=== PATIENT | female | born 1935 | race Caucasian/White ===

== ENCOUNTER 2019-11-17 13:26 | Outpatient (CLI) | payer MEDICARE, OTHER, SELFPAY ==
--- NOTE | 2019-11-17 13:36 | USCV_ITS ---
Bhargavi Flower Age: 84 Gender: F : 1935 Exam Date: 11/17/2019 14:05 Ordering Phys: Isai Arthur MD ([email or web address]) Technologist: Lea Valles Exam Location: [facility] [place] Indication: SWELLING HISTORY: Lower extremity swelling. PROCEDURES: Venous duplex imaging was performed in only the left lower extremity. The following venous structures were evaluated: common femoral vein, profunda vein, proximal portion of the greater saphenous vein, superficial femoral vein, and the popliteal vein. In addition, the posterior tibial and peroneal trunk were evaluated. Serial compression, augmentation maneuvers, and spectral Doppler flow evaluation were performed. FINDINGS: Normal 2-D Doppler and augmentation and compressibility throughout the lower extremity venous structures. Additional imaging through the proximal calf veins also reveals no thrombus. Limited evaluation of the greater saphenous vein is patent with no thrombus.. CONCLUSIONS No evidence of DVT in the above-mentioned identifiable veins. Dr Isai Arthur MD [facility] (Electronically Signed) Final Date: 19 November 2019 06:09 S
--- NOTE | 2019-11-17 14:15 | USCV_ITS ---
Bhargavi Flower Age: 84 Gender: F : 1935 Exam Date: 11/17/2019 13:53 Ordering Phys: Isai Arthur MD ([email or web address]) Technologist: Lea Valles Exam Location: [facility] [place] Indication: STENOSIS Risk Factors: Previous Vascular Surgery: Right Brachial BP: / Left Brachial BP: / Right Left Velocity (cm/s) Spectral Plaque Velocity (cm/s) Spectral Plaque Syst/Diast Broadening Syst/Diast Broadening 71.70/ 14.30 Prox CCA 64.70 / 6.30 77.20/ 12.10 Mid CCA 48.60 / 8.50 69.50/ 8.80 Distal CCA 54.60 / 8.50 62.20/ 8.40 Prox ICA 74.90 / 11.80 81.50/ 14.30 Mid ICA 70.50 / 11.10 77.70/ 14.30 Distal ICA 77.90 / 12.80 105.00 ECA 76.90 1.06 ICA/CCA 1.60 Antegrade Vertebral Antegrade 31.00/ 5.50 cm/s 41.10/ 7.20 cm/s Tri Subclavian Tri 85.40 108.4 0 FINDINGS TORTUOUS LEFT ICA Mild to moderate plaques at the bifurcations and proximal carotid arteries bilaterally. Antegrade flow in the vertebral arteries bilaterally. Normal Doppler flow velocities in the internal and external carotid arteries bilaterally. CONCLUSIONS Mild to moderate plaques at the bifurcations and proximal carotid arteries bilaterally. Tortuous left internal carotid artery. No significant stenosis, based on the above findings Dr Isai Arthur MD [facility] (Electronically Signed) Final Date: 19 November 2019 06:08 S
== END 2019-11-17 13:27 | disposition home or self-care (01) ==
LOC: US 13:31
PROVIDERS: Family Provider Family Medicine; PCP Family Medicine; Visit Provider Internal Medicine Cardiovascular Disease
DX: I65.23 Occlusion and stenosis of bilateral carotid arteries (principal); M79.89 Other specified soft tissue disorders; I77.1 Stricture of artery
CPT/HCPCS: 93880; 93971

== ENCOUNTER 2019-12-15 14:52 | Observation (INO) | payer MEDICARE, OTHER, MEDICAID, SELFPAY ==
[2019-12-15 14:58] VITALS: BP 132/82; PULSE 63; RESP 16; TEMP 37; O2SAT 90; BMI 23.0
--- NOTE | 2019-12-15 15:07 | CTR_ITS ---
PROCEDURE INFORMATION: Exam: CT Head Without Contrast Exam date and time: 12/15/2019 3:30 PM Age: 84 years old Clinical indication: Injury or trauma; Fall; Altered mental status/memory loss; Additional info: Trauma/fall/ams TECHNIQUE: Imaging protocol: Computed tomography of the head without contrast. Total DLP: 733.21 mGy-cm Radiation optimization: All CT scans at this facility use at least one of these dose optimization techniques: automated exposure control; mA and/or kV adjustment per patient size (includes targeted exams where dose is matched to clinical indication); or iterative reconstruction. COMPARISON: CT head wo con* [id number] 09/04/2019 9:33 AM FINDINGS: Brain: There is volume loss. There is white matter lucency consistent with chronic microvascular disease. 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 There is no evidence of acute infarct. There is no hemorrhage or extra-axial collection. Ventricles: There is no hydrocephalus. Bones/joints: Unremarkable. No acute fracture. Sinuses: Visualized sinuses are unremarkable. No fluid levels. Mastoid air cells: Visualized mastoid air cells are well aerated. Soft tissues: Unremarkable. CT/CT head wo con* [id number] IMPRESSION: 1. There is chronic microvascular disease. 2. No acute intracranial injury or lesion and no change from prior scan. Radiation Dose CTDIVOL = (mGy): DLP = 733.21 (mGy-cm)
--- NOTE | 2019-12-15 15:07 | CTR_ITS ---
PROCEDURE INFORMATION: Exam: CT Cervical Spine Without Contrast Exam date and time: 12/15/2019 3:30 PM Age: 84 years old Clinical indication: Injury or trauma; Fall; Initial encounter; Blunt trauma TECHNIQUE: Imaging protocol: Computed tomography images of the cervical spine without contrast. Total DLP: 322.05 mGy-cm Radiation optimization: All CT scans at this facility use at least one of these dose optimization techniques: automated exposure control; mA and/or kV adjustment per patient size (includes targeted exams where dose is matched to clinical indication); or iterative reconstruction. COMPARISON: CTA Head/Neck [id number] 07/08/2019 1:04 PM FINDINGS: Vertebrae: There is no vertebral fracture. There is no fracture of the posterior elements. There is mild C4-C5 retrolisthesis. Alignment is otherwise normal. Discs/Spinal canal/Neural foramina: There is disc space narrowing at C4-C5 and C5-C6. There are small posterior osteophytes and disc bulges at multiple levels resulting in mild segmental central spinal stenosis from C3-C4 to C5-C6.. There is foraminal stenosis at the same levels. Soft tissues: Unremarkable. Lungs: Centrilobular emphysema is noted in the lung apices. CT/CT cervical spin wo con* [id number] IMPRESSION: 1. No fracture of the cervical spine. 2. Degenerative findings described above. Radiation Dose CTDIVOL = (mGy): DLP = 322.05 (mGy-cm)
--- NOTE | 2019-12-15 15:17 | ED_ITS ---
Documented by User: TONY Meraz 12/16/19 17:23 HPI - Fall General: Chief Complaint: Fall Stated Complaint: POST FALL Time Seen by Provider: 12/15/19 15:07 Source: EMS Mode of arrival: EMS Limitations: altered mental status (dementia ) History of Present Illness: HPI Narrative: Patient is an 84-year-old female who presents to ED today from [facility] for complaints of a probable fall and altered mental status. According to [facility] report patient was found down in her room on her stomach facedown. It is unknown how long she was down for or if she fell. [facility] staff states that patient was alert when they found her but stated she did appear more lethargic than normal. Upon my examination patient is able to tell me her name, , and that she is in the emergency department. She tells me she lives with her grandson (not correct). She states she does not remember anything about this morning or the fall. She does appear drowsy on examination. She does not report any physical complaints at this time. Review of Systems General: Reports: ROS unobtainable due to mental status (pt is able to answer some questions but overall felt to be a poor historian) PFS ED PFSH: Medical History Anxiety Atherosclerotic heart disease of [place] coronary artery without angina pectoris Carotid artery stenosis Carotid artery stenosis with cerebral infarction Chronic cystitis Coronary artery disease DJD (degenerative joint disease) Dyslipidemia (high LDL; low HDL) Hypertension Swelling of left lower extremity Surgical History History of vaginal hysterectomy Hx of CABG Hx of cataract surgery Hx of cholecystectomy Family History Other CAD (coronary artery disease) Cancer Family history of premature coronary artery disease Social History Smoking and tobacco status: never smoked Alcohol intake: never Adopted: No Caregiver/support person: No Lives independently: No Household members: family Marital status: / Current occupational status: retired History of recent travel: No Current gender identity: Female Physical Exam Const: COMMON NORMALS: no apparent distress, average body habitus, oriented x3, healthy appearing, alert and well nourished EXAM LIMITATIONS: altered mental status HENMT: COMMON NORMALS: normocephalic and head/scalp atraumatic HEAD & SCALP: normocephalic and atraumatic FACE & SINUS: normal facial exam Eye: COMMON NORMALS: EOMs intact bilaterally and conjunctivae normal CONJUNCTIVA: Yes conjunctivae normal PUPIL: Yes pinpoint Neck/C-Spine: COMMON NORMALS: no lymphadenopathy CERVICAL SPINE: No cervical spine tenderness and No paracervical muscle tenderness Chest: COMMONS NORMALS: inspection of chest normal and palpation of chest normal Resp: COMMON NORMALS: normal respiratory effort and clear to auscultation bilaterally AUSCULTATION: clear to auscultation bilaterally Cardio: COMMON NORMALS: regular rate and regular rhythm RATE: regular rate RHYTHM: regular rhythm GI: COMMON NORMALS: normal to inspection, nondistended, normoactive bowel sounds, soft to palpation, non-tender, no hepatosplenomegaly and no masses PALPATION: Yes soft and Yes no hepatosplenomegaly Back/Pelvis: COMMON NORMALS: thoracic and lumbar spine normal to inspection, no thoracic nor lumbar tenderness and thoraco-lumbar ROM normal Extremity: COMMON NORMALS: normal to inspection Neuro: LUZ MARIA COMA SCALE: document GCS findings Weston coma scale eye opening: Spontaneous Luz Maria coma scale verbal response: Orientated [place] coma scale motor response: Obey commands Weston coma scale total score: 15 COMMON NORMALS: oriented x3, moves all extremities, no focal motor deficits and no sensory deficits noted SENSORIUM/ORIENTATION: Yes alert Skin: COMMON NORMALS: no rashes or lesions noted GENERAL SKIN EXAM: no rashes or lesions noted Course Vital Signs: Vital signs: Vital Signs Temperature 98.5 F 12/16/19 15:42 Pulse Rate 80 12/16/19 15:42 Respiratory Rate 18 12/16/19 15:42 Blood Pressure 186/80 12/16/19 15:51 Pulse Oximetry 93 12/16/19 15:42 MDM - Fall Lab Data: Labs: Lab Results 12/15/19 12/15/19 12/15/19 Range/Units 16:02 16:02 16:05 WBC 15.3 H (4.0-10.0) 10^3/ uL RBC 4.19 (4.1-5.3) 10^6/u L Hgb 12.9 (11.5-15.3) g/dL Hct 40.5 (37.0-47.0) % MCV 96.7 (81-99) fL MCH 30.8 (28.0-34.0) pg MCHC 31.9 (30.0-36.0) g/dL RDW 12.9 (12.1-15.1) % Plt Count 186 (130-400) 10^3/c mm MPV 9.8 (7.4-10.4) fL Neut % (Auto) 73.2 % Lymph % (Auto) 19.2 % [place] % (Auto) 6.6 % Eos % (Auto) 0.5 % Baso % (Auto) 0.2 % Neut # (Auto) 11.2 H (1.8-7.7) 10^3/u L Lymph # (Auto) 3.0 (0.8-4.8) 10^3/u L Madison # (Auto) 1.0 H (0.2-0.9) 10^3/u L Eos # (Auto) 0.1 (0.0-0.8) 10^3/u L Baso # (Auto) 0.0 (0.0-0.1) 10^3/u L Nucleated RBC % (a uto) 0 % Nucleated RBCs # 0.0 /100WBC PT (10.5-13.3) SECO NDS INR (0.8-1.2) APTT (23.9-36.7) SECO NDS Sodium (136-145) mmol/L Potassium (3.5-5.1) mmol/L Chloride (98-107) mmol/L Carbon Dioxide (22-29) mmol/L Anion Gap (5-19) BUN (8-23) mg/dL Creatinine (0.5-0.9) mg/dL Glucose (65-115) mg/dL Calculated Osmolal ity (285-295) mOsm/k g Lactic Acid (0.5-2.2) mmol/L Lactate (0.5-2.2) mmol/L Calcium (8.5-10.5) mg/dL Total Bilirubin (0.15-1.2) mg/dL AST (0-32) U/L ALT (0-33) U/L Alkaline Phosphata se (35-105) IU/L Creatine Kinase (26-192) U/L Troponin T Baselin e (0-10) ng/mL Troponin T 120 [place] (0-10) ng/mL Delta Troponin T (0-10) ABS# Total Protein (6.6-8.7) g/dL Albumin (3.5-5.2) g/dL Globulin (1.3-4.6) g/dL Urine Color Yellow (Yellow) Urine Appearance Clear (CLEAR) Urine pH 7 (5-7) Ur Specific Gravit y 1.010 (1.005-1.030) Urine Protein 3+ H (Negative) Urine Glucose (UA) Norm (Normal) Urine Ketones Negative (Negative) Urine Blood Neg (Negative) Urine Nitrate Negative (Negative) Urine Bilirubin Neg (NEGATIVE) Urine Urobilinogen Norm (Negative) mg/dL Ur Leukocyte Althea ase Negative (Negative) Urine RBC None (0-2) /hpf Urine WBC 0-4 H (0-5) /hpf Ur Squamous Epith Cells 5-10 H (0-5) Ur Transition Epit h Cell 5-10 /hpf Urine Bacteria 1+ H (NONE) Hyaline Casts 5-10 H Salicylates (3-10) mg/dL Urine Opiates Scre en Negative (Negative) ng/mL Acetaminophen (10-30) ug/mL Ur Barbiturates Sc reen Negative (Negative) ng/mL Ur Phencyclidine S crn Negative (Negative) ng/mL Ur Amphetamines Sc reen Negative (Negative) ng/mL U Benzodiazepines Scrn Positive H (Negative) ng/mL Urine Cocaine Scre en Negative (Negative) ng/mL U Marijuana (THC) Screen Negative (Negative) ng/mL 12/15/19 12/15/19 12/15/19 Range/Units 16:05 16:05 16:05 WBC (4.0-10.0) 10^3/ uL RBC (4.1-5.3) 10^6/u L Hgb (11.5-15.3) g/dL Hct (37.0-47.0) % MCV (81-99) fL MCH (28.0-34.0) pg MCHC (30.0-36.0) g/dL RDW (12.1-15.1) % Plt Count (130-400) 10^3/c mm MPV (7.4-10.4) fL Neut % (Auto) % Lymph % (Auto) % Madison % (Auto) % Eos % (Auto) % Baso % (Auto) % Neut # (Auto) (1.8-7.7) 10^3/u L Lymph # (Auto) (0.8-4.8) 10^3/u L [place] # (Auto) (0.2-0.9) 10^3/u L Eos # (Auto) (0.0-0.8) 10^3/u L Baso # (Auto) (0.0-0.1) 10^3/u L Nucleated RBC % (a uto) % Nucleated RBCs # /100WBC PT (10.5-13.3) SECO NDS INR (0.8-1.2) APTT (23.9-36.7) SECO NDS Sodium 136 (136-145) mmol/L Potassium 4.2 (3.5-5.1) mmol/L Chloride 95 L (98-107) mmol/L Carbon Dioxide 25 (22-29) mmol/L Anion Gap 20.2 H (5-19) BUN 24 H (8-23) mg/dL Creatinine 1.9 H (0.5-0.9) mg/dL Glucose 119 H (65-115) mg/dL Calculated Osmolal ity 280 L (285-295) mOsm/k g Lactic Acid (0.5-2.2) mmol/L Lactate 1.3 (0.5-2.2) mmol/L Calcium 10.4 (8.5-10.5) mg/dL Total Bilirubin 0.4 (0.15-1.2) mg/dL AST 21 (0-32) U/L ALT 20 (0-33) U/L Alkaline Phosphata se 63 (35-105) IU/L Creatine Kinase 54 (26-192) U/L Troponin T Baselin e 29 H (0-10) ng/mL Troponin T 120 [place] (0-10) ng/mL Delta Troponin T (0-10) ABS# Total Protein 8.2 (6.6-8.7) g/dL Albumin 4.0 (3.5-5.2) g/dL Globulin 4.2 (1.3-4.6) g/dL Urine Color (Yellow) Urine Appearance (CLEAR) Urine pH (5-7) Ur Specific Gravit y (1.005-1.030) Urine Protein (Negative) Urine Glucose (UA) (Normal) Urine Ketones (Negative) Urine Blood (Negative) Urine Nitrate (Negative) Urine Bilirubin (NEGATIVE) Urine Urobilinogen (Negative) mg/dL Ur Leukocyte Althea ase (Negative) Urine RBC (0-2) /hpf Urine WBC (0-5) /hpf Ur Squamous Epith Cells (0-5) Ur Transition Epit h Cell /hpf Urine Bacteria (NONE) Hyaline Casts Salicylates < 0.3 L (3-10) mg/dL Urine Opiates Scre en (Negative) ng/mL Acetaminophen 12.4 (10-30) ug/mL Ur Barbiturates Sc reen (Negative) ng/mL Ur Phencyclidine S crn (Negative) ng/mL Ur Amphetamines Sc reen (Negative) ng/mL U Benzodiazepines Scrn (Negative) ng/mL Urine Cocaine Scre en (Negative) ng/mL U Marijuana (THC) Screen (Negative) ng/mL 12/15/19 12/15/19 12/15/19 Range/Units 16:05 17:57 18:20 WBC (4.0-10.0) 10^3/ uL RBC (4.1-5.3) 10^6/u L Hgb (11.5-15.3) g/dL Hct (37.0-47.0) % MCV (81-99) fL MCH (28.0-34.0) pg MCHC (30.0-36.0) g/dL RDW (12.1-15.1) % Plt Count (130-400) 10^3/c mm MPV (7.4-10.4) fL Neut % (Auto) % Lymph % (Auto) % Madison % (Auto) % Eos % (Auto) % Baso % (Auto) % Neut # (Auto) (1.8-7.7) 10^3/u L Lymph # (Auto) (0.8-4.8) 10^3/u L [place] # (Auto) (0.2-0.9) 10^3/u L Eos # (Auto) (0.0-0.8) 10^3/u L Baso # (Auto) (0.0-0.1) 10^3/u L Nucleated RBC % (a uto) % Nucleated RBCs # /100WBC PT 13.70 H (10.5-13.3) SECO NDS INR 1.02 (0.8-1.2) APTT 30.5 (23.9-36.7) SECO NDS Sodium (136-145) mmol/L Potassium (3.5-5.1) mmol/L Chloride (98-107) mmol/L Carbon Dioxide (22-29) mmol/L Anion Gap (5-19) BUN (8-23) mg/dL Creatinine (0.5-0.9) mg/dL Glucose (65-115) mg/dL Calculated Osmolal ity (285-295) mOsm/k g Lactic Acid 0.8 (0.5-2.2) mmol/L Lactate (0.5-2.2) mmol/L Calcium (8.5-10.5) mg/dL Total Bilirubin (0.15-1.2) mg/dL AST (0-32) U/L ALT (0-33) U/L Alkaline Phosphata se (35-105) IU/L Creatine Kinase (26-192) U/L Troponin T Baselin e (0-10) ng/mL Troponin T 120 [place] 26.64 H (0-10) ng/mL Delta Troponin T -2.36 L (0-10) ABS# Total Protein (6.6-8.7) g/dL Albumin (3.5-5.2) g/dL Globulin (1.3-4.6) g/dL Urine Color (Yellow) Urine Appearance (CLEAR) Urine pH (5-7) Ur Specific Gravit y (1.005-1.030) Urine Protein (Negative) Urine Glucose (UA) (Normal) Urine Ketones (Negative) Urine Blood (Negative) Urine Nitrate (Negative) Urine Bilirubin (NEGATIVE) Urine Urobilinogen (Negative) mg/dL Ur Leukocyte Althea ase (Negative) Urine RBC (0-2) /hpf Urine WBC (0-5) /hpf Ur Squamous Epith Cells (0-5) Ur Transition Epit h Cell /hpf Urine Bacteria (NONE) Hyaline Casts Salicylates (3-10) mg/dL Urine Opiates Scre en (Negative) ng/mL Acetaminophen (10-30) ug/mL Ur Barbiturates Sc reen (Negative) ng/mL Ur Phencyclidine S crn (Negative) ng/mL Ur Amphetamines Sc reen (Negative) ng/mL U Benzodiazepines Scrn (Negative) ng/mL Urine Cocaine Scre en (Negative) ng/mL U Marijuana (THC) Screen (Negative) ng/mL Imaging Data^: CT cervical : Radiologist's impression: [address] [place] [address] CT Scan Report Signed Patient: Bhargavi Flower Unit #: [id number] : 1935 Age/Sex: 84 / F ADM Date: 12/15/19 Loc: ER Room/Bed: Attending Dr: Ordering Provider/Ordering MD: Liv Matos Date of Service: 12/15/19 Procedure(s): CT cervical spin wo con* [id number] Accession Number(s): [id number] Report Number: [id number] PROCEDURE INFORMATION: Exam: CT Cervical Spine Without Contrast Exam date and time: 12/15/2019 3:30 PM Age: 84 years old Clinical indication: Injury or trauma; Fall; Initial encounter; Blunt trauma TECHNIQUE: Imaging protocol: Computed tomography images of the cervical spine without contrast. Total DLP: 322.05 mGy-cm Radiation optimization: All CT scans at this facility use at least one of these dose optimization techniques: automated exposure control; mA and/or kV adjustment per patient size (includes targeted exams where dose is matched to clinical indication); or iterative reconstruction. COMPARISON: CTA Head/Neck [id number] 07/08/2019 1:04 PM FINDINGS: Vertebrae: There is no vertebral fracture. There is no fracture of the posterior elements. There is mild C4-C5 retrolisthesis. Alignment is otherwise normal. Discs/Spinal canal/Neural foramina: There is disc space narrowing at C4-C5 and C5-C6. There are small posterior osteophytes and disc bulges at multiple levels resulting in mild segmental central spinal stenosis from C3-C4 to C5-C6.. There is foraminal stenosis at the same levels. Soft tissues: Unremarkable. Lungs: Centrilobular emphysema is noted in the lung apices. CT/CT cervical spin wo con* [id number] IMPRESSION: 1. No fracture of the cervical spine. 2. Degenerative findings described above. Radiation Dose CTDIVOL = (mGy): DLP = 322.05 (mGy-cm) Dictated By: Chano Boyd MD Signed By: Chano Boyd MD Signed Date/Time: 12/15/19 155 DD/ 1558 CT Head: Radiologist's impression: [address] [address] [address] Scan Report Signed Patient: Bhargavi Flower Unit #: [id number] : 1935 Age/Sex: 84 / F ADM Date: 12/15/19 Loc: ER Room/Bed: Attending Dr: Ordering Provider/Ordering MD: Liv Matos Date of Service: 12/15/19 Procedure(s): CT head wo con* [id number] Accession Number(s): [id number] Report Number: [id number] PROCEDURE INFORMATION: Exam: CT Head Without Contrast Exam date and time: 12/15/2019 3:30 PM Age: 84 years old Clinical indication: Injury or trauma; Fall; Altered mental status/memory loss; Additional info: Trauma/fall/ams TECHNIQUE: Imaging protocol: Computed tomography of the head without contrast. Total DLP: 733.21 mGy-cm Radiation optimization: All CT scans at this facility use at least one of these dose optimization techniques: automated exposure control; mA and/or kV adjustment per patient size (includes targeted exams where dose is matched to clinical indication); or iterative reconstruction. COMPARISON: CT head wo con* [id number] 09/04/2019 9:33 AM FINDINGS: Brain: There is volume loss. There is white matter lucency consistent with chronic microvascular disease. 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 There is no evidence of acute infarct. There is no hemorrhage or extra-axial collection. Ventricles: There is no hydrocephalus. Bones/joints: Unremarkable. No acute fracture. Sinuses: Visualized sinuses are unremarkable. No fluid levels. Mastoid air cells: Visualized mastoid air cells are well aerated. Soft tissues: Unremarkable. CT/CT head wo con* [id number] IMPRESSION: 1. There is chronic microvascular disease. 2. No acute intracranial injury or lesion and no change from prior scan. Radiation Dose CTDIVOL = (mGy): DLP = 733.21 (mGy-cm) Dictated By: Chano Boyd MD Signed By: Chano Boyd MD Signed Date/Time: 12/15/19 1602 DD/ 1600 CXR: Radiologist's impression: [address] [address] XRay Report Signed Patient: Bhargavi Flower Unit #: [id number] : 1935 Age/Sex: 84 / F ADM Date: 12/15/19 Loc: ER Room/Bed: Attending Dr: Ordering Provider/Ordering MD: Liv Matos Date of Service: 12/15/19 Procedure(s): XR chest 1V portable [id number] Accession Number(s): [id number] Report Number: [id number] WS: [id number] CHEST XRAY TECHNIQUE: Portable chest. CLINICAL INFORMATION: cough/congestion COMPARISON: January 17, 2018 FINDINGS: Heart: Normal cardiac silhouette. Sternotomy. Mediastinal clips. Aortic calcification. Lungs: Advanced chronic emphysematous changes. Chronic elevation right he midiaphragm. Chronic appearing interstitial thickening in both lungs. No acute pulmonary infiltrates. Bones: Osteopenia. Cholecystectomy clips. XR/XR chest 1V portable [id number] IMPRESSION: 1. Advanced chronic emphysematous changes with elevation right hemidiaphragm. 2. Chronic appearing interstitial thickening in both lungs. 3. No acute pulmonary infiltrates. Dictated By: Trip Parisi MD Signed By: Trip Parisi MD Signed Date/Time: 12/15/19 1617 DD/ 1616 EKG Data^: EKG 1: EKG interpretation date: 12/15/19 EKG interpretation time: 15:57 Interpretation: Sinus bradycardia Rate [address] elevation or depression changes noted Discharge Plan Discharge Patient Disposition: Admitted As Inpatient Admit Provider: Estelita Nava Clinical Impression: Dehydration Pneumonia Qualifiers: Pneumonia type: due to unspecified organism Laterality: right Lung location: unspecified part of lung Qualified Code(s): J18.9 - Pneumonia, unspecified organism Altered mental state Qualifiers: Altered mental status type: disorientation Qualified Code(s): R41.0 - Disorientation, unspecified Condition: Stable Discharge Orders: Discharge Order (Routine); Ordered 12/16/19 Ordered By: Johnathan Gonzalez Referrals: Sanjay Rosenberg MD [Primary Care Provider] - 4-7 days Discharge Diet: Cardiac and Low Salt Discharge Activity: Increase activity as tolerated and Limit activity as instructed Patient Instructions: Metoprolol (By mouth), Hydralazine (By mouth), Levofloxacin (By mouth) Additional Instructions: Strict fall precautions. At risk of wandering. Requires assistance with ADLs. Avoid any NSAIDs. Avoid dehydration. For now diuretic is discontinued. If be coming fluid overloaded, please reassess. Episode of bradycardia on presentation. Please monitor heart rates 3 times daily. At this time metoprolol dose is decreased down to 12.5 mg daily. 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 Per family she has allergy to aspirin and statins. If more aggressive course of action is pursued and she is no longer at risk of falling, consider discussion regarding Plavix, and a family wishing to pursue more aggressive course of action referral to neurology. Monitor blood pressures 3 times daily, and help optimize control. Urine culture was requested on admission, follow-up final results. Complete course of treatment with Levaquin for suspected urinary tract infection. Discharge Date/Time: 12/15/19 23:29 Coding Level of Care Code ED Soap Boiler for Chg Fwd Exam Comprehensive Documented by User: JEANE Lal 12/15/19 21:16 HPI - Fall General: Chief Complaint: Fall Stated Complaint: POST FALL Time Seen by Provider: 12/15/19 15:07 PFSH ED PFSH: Medical History Anxiety Atherosclerotic heart disease of [place] coronary artery without angina pectoris Carotid artery stenosis Carotid artery stenosis with cerebral infarction Chronic cystitis Coronary artery disease DJD (degenerative joint disease) Dyslipidemia (high LDL; low HDL) Hypertension Swelling of left lower extremity Surgical History History of vaginal hysterectomy Hx of CABG Hx of cataract surgery Hx of cholecystectomy Family History Other CAD (coronary artery disease) Cancer Family history of premature coronary artery disease Social History Smoking and tobacco status: never smoked Alcohol intake: never Adopted: No Caregiver/support person: No Lives independently: No Household members: family Marital status: / Current occupational status: retired History of recent travel: No Current gender identity: Female Course ED course: 1709, received patient from [facility], awaiting 2nd troponin. Plan is to admit for AMS per family request due to patient not being able to return to [facility]. Labs show increase in Creatinine from 1.1 to 1.9, increase leukocytes, urine shows some casts. wjw 1804, reviewed patient with Dr. Curtis, he believes that patient might have a infiltrate in the right lung when comparing x-rays. Patient did have a increase in the white blood cell count and also labs also indicate some dehydration. Patient exam notes no abdominal tenderness, decreased breath sounds, vital signs are normal except for some hypoxia with O2 being at 90% on room air. wjw Vital Signs: Vital signs: Vital Signs Temperature 98.5 F 12/16/19 15:42 Pulse Rate 80 12/16/19 15:42 Respiratory Rate 18 12/16/19 15:42 Blood Pressure 186/80 12/16/19 15:51 Pulse Oximetry 93 12/16/19 15:42 MDM - Fall MDM Narrative: Medical decision making narrative: Patient was brought in today for concerns of change in mental status with increased confusion. Patient resides at [facility] and was found in the floor this morning. Patient was then brought in this afternoon for concerns of continued confusion. Exam notes no abdominal tenderness, no noticeable injury, vital signs are normal except for some hypoxia of 90% on room air. No fever. Differential diagnosis includes sepsis, UTI, pneumonia, CVA, ACS, dementia, injury. CT of the head and neck noted no significant abnormality. Chest x-ray noted some increased interstitial thickening that was considered chronic by radiology although when reviewing the x-rays it appeared that there was a more significant infiltrate to the right lung when compared to a previous chest x-ray from 2016. White count was elevated at 15. And patient had an increase in creatinine at 1.9 and BUN at 24. Urinalysis showed hyaline casts but no significant red or white blood cells. Reviewed patient with Dr. Curtis who agreed with x-ray suggesting that patient probably has pneumonia with some mild dehydration and altered mental status recommending admission to the hospital. Discussed with Dr. Amador who agreed to admission for altered mental status, pneumonia, dehydration. He believes patient will probably not past 2 midnights service and recommend observation status. Patient needs admission for [facility] for deterioration of condition, further evaluation and IV therapy for dehydration and antibiotic for pneumonia. Lab Data: Labs: Lab Results 12/15/19 12/15/19 12/15/19 Range/Units 16:02 16:02 16:05 WBC 15.3 H (4.0-10.0) 10^3/ uL RBC 4.19 (4.1-5.3) 10^6/u L Hgb 12.9 (11.5-15.3) g/dL Hct 40.5 (37.0-47.0) % MCV 96.7 (81-99) fL MCH 30.8 (28.0-34.0) pg MCHC 31.9 (30.0-36.0) g/dL RDW 12.9 (12.1-15.1) % Plt Count 186 (130-400) 10^3/c mm MPV 9.8 (7.4-10.4) fL Neut % (Auto) 73.2 % Lymph % (Auto) 19.2 % [place] % (Auto) 6.6 % Eos % (Auto) 0.5 % Baso % (Auto) 0.2 % Neut # (Auto) 11.2 H (1.8-7.7) 10^3/u L Lymph # (Auto) 3.0 (0.8-4.8) 10^3/u L [place] # (Auto) 1.0 H (0.2-0.9) 10^3/u L Eos # (Auto) 0.1 (0.0-0.8) 10^3/u L Baso # (Auto) 0.0 (0.0-0.1) 10^3/u L Nucleated RBC % (a uto) 0 % Nucleated RBCs # 0.0 /100WBC PT (10.5-13.3) SECO NDS INR (0.8-1.2) APTT (23.9-36.7) SECO NDS Sodium (136-145) mmol/L Potassium (3.5-5.1) mmol/L Chloride (98-107) mmol/L Carbon Dioxide (22-29) mmol/L Anion Gap (5-19) BUN (8-23) mg/dL Creatinine (0.5-0.9) mg/dL Glucose (65-115) mg/dL Calculated Osmolal ity (285-295) mOsm/k g Lactic Acid (0.5-2.2) mmol/L Lactate (0.5-2.2) mmol/L Calcium (8.5-10.5) mg/dL Total Bilirubin (0.15-1.2) mg/dL AST (0-32) U/L ALT (0-33) U/L Alkaline Phosphata se (35-105) IU/L Creatine Kinase (26-192) U/L Troponin T Baselin e (0-10) ng/mL Troponin T 120 [place] (0-10) ng/mL Delta Troponin T (0-10) ABS# Total Protein (6.6-8.7) g/dL Albumin (3.5-5.2) g/dL Globulin (1.3-4.6) g/dL Urine Color Yellow (Yellow) Urine Appearance Clear (CLEAR) Urine pH 7 (5-7) Ur Specific Gravit y 1.010 (1.005-1.030) Urine Protein 3+ H (Negative) Urine Glucose (UA) Norm (Normal) Urine Ketones Negative (Negative) Urine Blood Neg (Negative) Urine Nitrate Negative (Negative) Urine Bilirubin Neg (NEGATIVE) Urine Urobilinogen Norm (Negative) mg/dL Ur Leukocyte Althea ase Negative (Negative) Urine RBC None (0-2) /hpf Urine WBC 0-4 H (0-5) /hpf Ur Squamous Epith Cells 5-10 H (0-5) Ur Transition Epit h Cell 5-10 /hpf Urine Bacteria 1+ H (NONE) Hyaline Casts 5-10 H Salicylates (3-10) mg/dL Urine Opiates Scre en Negative (Negative) ng/mL Acetaminophen (10-30) ug/mL Ur Barbiturates Sc reen Negative (Negative) ng/mL Ur Phencyclidine S crn Negative (Negative) ng/mL Ur Amphetamines Sc reen Negative (Negative) ng/mL U Benzodiazepines Scrn Positive H (Negative) ng/mL Urine Cocaine Scre en Negative (Negative) ng/mL U Marijuana (THC) Screen Negative (Negative) ng/mL 12/15/19 12/15/19 12/15/19 Range/Units 16:05 16:05 16:05 WBC (4.0-10.0) 10^3/ uL RBC (4.1-5.3) 10^6/u L Hgb (11.5-15.3) g/dL Hct (37.0-47.0) % MCV (81-99) fL MCH (28.0-34.0) pg MCHC (30.0-36.0) g/dL RDW (12.1-15.1) % Plt Count (130-400) 10^3/c mm MPV (7.4-10.4) fL Neut % (Auto) % Lymph % (Auto) % [place] % (Auto) % Eos % (Auto) % Baso % (Auto) % Neut # (Auto) (1.8-7.7) 10^3/u L Lymph # (Auto) (0.8-4.8) 10^3/u L [place] # (Auto) (0.2-0.9) 10^3/u L Eos # (Auto) (0.0-0.8) 10^3/u L Baso # (Auto) (0.0-0.1) 10^3/u L Nucleated RBC % (a uto) % Nucleated RBCs # /100WBC PT (10.5-13.3) SECO NDS INR (0.8-1.2) APTT (23.9-36.7) SECO NDS Sodium 136 (136-145) mmol/L Potassium 4.2 (3.5-5.1) mmol/L Chloride 95 L (98-107) mmol/L Carbon Dioxide 25 (22-29) mmol/L Anion Gap 20.2 H (5-19) BUN 24 H (8-23) mg/dL Creatinine 1.9 H (0.5-0.9) mg/dL Glucose 119 H (65-115) mg/dL Calculated Osmolal ity 280 L (285-295) mOsm/k g Lactic Acid (0.5-2.2) mmol/L Lactate 1.3 (0.5-2.2) mmol/L Calcium 10.4 (8.5-10.5) mg/dL Total Bilirubin 0.4 (0.15-1.2) mg/dL AST 21 (0-32) U/L ALT 20 (0-33) U/L Alkaline Phosphata se 63 (35-105) IU/L Creatine Kinase 54 (26-192) U/L Troponin T Baselin e 29 H (0-10) ng/mL Troponin T 120 [place] (0-10) ng/mL Delta Troponin T (0-10) ABS# Total Protein 8.2 (6.6-8.7) g/dL Albumin 4.0 (3.5-5.2) g/dL Globulin 4.2 (1.3-4.6) g/dL Urine Color (Yellow) Urine Appearance (CLEAR) Urine pH (5-7) Ur Specific Gravit y (1.005-1.030) Urine Protein (Negative) Urine Glucose (UA) (Normal) Urine Ketones (Negative) Urine Blood (Negative) Urine Nitrate (Negative) Urine Bilirubin (NEGATIVE) Urine Urobilinogen (Negative) mg/dL Ur Leukocyte Althea ase (Negative) Urine RBC (0-2) /hpf Urine WBC (0-5) /hpf Ur Squamous Epith Cells (0-5) Ur Transition Epit h Cell /hpf Urine Bacteria (NONE) Hyaline Casts Salicylates < 0.3 L (3-10) mg/dL Urine Opiates Scre en (Negative) ng/mL Acetaminophen 12.4 (10-30) ug/mL Ur Barbiturates Sc reen (Negative) ng/mL Ur Phencyclidine S crn (Negative) ng/mL Ur Amphetamines Sc reen (Negative) ng/mL U Benzodiazepines Scrn (Negative) ng/mL Urine Cocaine Scre en (Negative) ng/mL U Marijuana (THC) Screen (Negative) ng/mL 12/15/19 12/15/19 12/15/19 Range/Units 16:05 17:57 18:20 WBC (4.0-10.0) 10^3/ uL RBC (4.1-5.3) 10^6/u L Hgb (11.5-15.3) g/dL Hct (37.0-47.0) % MCV (81-99) fL MCH (28.0-34.0) pg MCHC (30.0-36.0) g/dL RDW (12.1-15.1) % Plt Count (130-400) 10^3/c mm MPV (7.4-10.4) fL Neut % (Auto) % Lymph % (Auto) % [place] % (Auto) % Eos % (Auto) % Baso % (Auto) % Neut # (Auto) (1.8-7.7) 10^3/u L Lymph # (Auto) (0.8-4.8) 10^3/u L [place] # (Auto) (0.2-0.9) 10^3/u L Eos # (Auto) (0.0-0.8) 10^3/u L Baso # (Auto) (0.0-0.1) 10^3/u L Nucleated RBC % (a uto) % Nucleated RBCs # /100WBC PT 13.70 H (10.5-13.3) SECO NDS INR 1.02 (0.8-1.2) APTT 30.5 (23.9-36.7) SECO NDS Sodium (136-145) mmol/L Potassium (3.5-5.1) mmol/L Chloride (98-107) mmol/L Carbon Dioxide (22-29) mmol/L Anion Gap (5-19) BUN (8-23) mg/dL Creatinine (0.5-0.9) mg/dL Glucose (65-115) mg/dL Calculated Osmolal ity (285-295) mOsm/k g Lactic Acid 0.8 (0.5-2.2) mmol/L Lactate (0.5-2.2) mmol/L Calcium (8.5-10.5) mg/dL Total Bilirubin (0.15-1.2) mg/dL AST (0-32) U/L ALT (0-33) U/L Alkaline Phosphata se (35-105) IU/L Creatine Kinase (26-192) U/L Troponin T Baselin e (0-10) ng/mL Troponin T 120 [place] 26.64 H (0-10) ng/mL Delta Troponin T -2.36 L (0-10) ABS# Total Protein (6.6-8.7) g/dL Albumin (3.5-5.2) g/dL Globulin (1.3-4.6) g/dL Urine Color (Yellow) Urine Appearance (CLEAR) Urine pH (5-7) Ur Specific Gravit y (1.005-1.030) Urine Protein (Negative) Urine Glucose (UA) (Normal) Urine Ketones (Negative) Urine Blood (Negative) Urine Nitrate (Negative) Urine Bilirubin (NEGATIVE) Urine Urobilinogen (Negative) mg/dL Ur Leukocyte Althea ase (Negative) Urine RBC (0-2) /hpf Urine WBC (0-5) /hpf Ur Squamous Epith Cells (0-5) Ur Transition Epit h Cell /hpf Urine Bacteria (NONE) Hyaline Casts Salicylates (3-10) mg/dL Urine Opiates Scre en (Negative) ng/mL Acetaminophen (10-30) ug/mL Ur Barbiturates Sc reen (Negative) ng/mL Ur Phencyclidine S crn (Negative) ng/mL Ur Amphetamines Sc reen (Negative) ng/mL U Benzodiazepines Scrn (Negative) ng/mL Urine Cocaine Scre en (Negative) ng/mL U Marijuana (THC) Screen (Negative) ng/mL EKG Data^: EKG 2: Attestation: I personally reviewed and interpreted this EKG as follows: (1746, SR rate regular @ 64, no ectopy, no ST elevation) Discharge Plan Discharge Patient Disposition: Admitted As Inpatient Admit Provider: Estelita Nava Clinical Impression: Dehydration Pneumonia Qualifiers: Pneumonia type: due to unspecified organism Laterality: right Lung location: unspecified part of lung Qualified Code(s): J18.9 - Pneumonia, unspecified organism Altered mental state Qualifiers: Altered mental status type: disorientation Qualified Code(s): R41.0 - Disorientation, unspecified Condition: Stable Discharge Orders: Discharge Order (Routine); Ordered 12/16/19 Ordered By: Johnathan Gonzalez Referrals: Sanjay Rosenberg MD [Primary Care Provider] - 4-7 days Discharge Diet: Cardiac and Low Salt Discharge Activity: Increase activity as tolerated and Limit activity as instructed Patient Instructions: Metoprolol (By mouth), Hydralazine (By mouth), Levofloxacin (By mouth) Additional Instructions: Strict fall precautions. At risk of wandering. Requires assistance with ADLs. Avoid any NSAIDs. Avoid dehydration. For now diuretic is discontinued. If becoming fluid overloaded, please reassess. Episode of bradycardia on presentation. Please monitor heart rates 3 times daily. At this time metoprolol dose is decreased down to 12.5 mg daily. 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 Per family she has allergy to aspirin and statins. If more aggressive course of action is pursued and she is no longer at risk of falling, consider discussion regarding Plavix, and a family wishing to pursue more aggressive course of action referral to neurology. Monitor blood pressures 3 times daily, and help optimize control. Urine culture was requested on admission, follow-up final results. Complete course of treatment with Levaquin for suspected urinary tract infection. 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
--- NOTE | 2019-12-15 15:39 | XR_ITS ---
WS: [id number] CHEST XRAY TECHNIQUE: Portable chest. CLINICAL INFORMATION: cough/congestion COMPARISON: January 17, 2018 FINDINGS: Heart: Normal cardiac silhouette. Sternotomy. Mediastinal clips. Aortic calcification. Lungs: Advanced chronic emphysematous changes. Chronic elevation right hemidiaphragm. Chronic appeari ng interstitial thickening in both lungs. No acute pulmonary infiltrates. Bones: Osteopenia. Cholecystectomy clips. XR/XR chest 1V portable [id number] IMPRESSION: 1. Advanced chronic emphysematous changes with elevation right hemidiaphragm. 2. Chronic appearing interstitial thickening in both lungs. 3. No acute pulmonary infiltrates.
--- NOTE | 2019-12-15 15:40 | ECG_ITS ---
Measurements Intervals [place] Rate: 59 P: 35 AK: 169 QRS: 18 QRSD: 86 T: 36 QT: 442 QTc: 440 SINUS BRADYCARDIA POSSIBLE LEFT ATRIAL ENLARGEMENT [-0.1mV P WAVE IN V1/V2] Compared to ECG 12/03/2015 04:41:58 Sinus rhythm no longer present Electronically Signed On 12-16-2019 18:01:14 CDT by Isai Arthur M.D. [id number] f
[2019-12-15 15:52] VITALS: BP 127/77; PULSE 59; RESP 18; O2SAT 97
[2019-12-15 16:15] LABS: Basophils % 0.2 %; Eosinophils # 0.1 10^3/uL (0.0-0.8); Eosinophils % 0.5 %; Hematocrit 40.5 % (37.0-47.0); Hemoglobin 12.9 g/dL (11.5-15.3); Lymphocytes % 19.2 %; Mean Corpuscular HGB Conc 31.9 g/dL (30.0-36.0); Mean Corpuscular Hemoglobin 30.8 pg (28.0-34.0); Mean Corpuscular Volume 96.7 fL (81-99); Mean Platelet Volume 9.8 fL (7.4-10.4); Monocytes % 6.6 %; Neutrophils # 11.2 10^3/uL (1.8-7.7); Neutrophils % 73.2 %; Nucleated Red Blood Cells % 0 %; Platelet Count 186 10^3/cmm (130-400); Red Blood Count 4.19 10^6/uL (4.1-5.3); Red Cell Distribution Width 12.9 % (12.1-15.1); White Blood Count 15.3 10^3/uL (4.0-10.0)
[2019-12-15 16:25] LABS: INR 1.02 (0.8-1.2)
[2019-12-15 16:26] LABS: Partial Thromboplastin Time 30.5 SECONDS (23.9-36.7)
[2019-12-15 16:28] LABS: Add Urine Microscopic? YES; Bilirubin Urine Neg (NEGATIVE); Blood Urine Neg (Negative); Glucose Urine UA Norm (Normal); Ketones Urine Negative (Negative); Leukocyte Esterase Urine Negative (Negative); Nitrate Urine Negative (Negative); Protein Urine 3+ (Negative); Urine Appearance Clear (CLEAR); Urine Color Yellow (Yellow); Urobilinogen Urine Norm (Negative); pH Urine 7 (5-7)
[2019-12-15 16:34] LABS: Amphetamines Screen Urine Negative (Negative); Barbiturates Screen Urine Negative (Negative); Benzodiazepines Screen Urine Positive (Negative); Cocaine Screen Urine Negative (Negative); Opiate Screen Urine Negative (Negative); PCP Screen Urine Negative (Negative); THC Screen Urine Negative (Negative)
[2019-12-15 16:34] LABS: Lactate (Lactic Acid level) 1.3 mmol/L (0.5-2.2)
[2019-12-15 16:37] LABS: Troponin(5th) Baseline 29 ng/mL (0-10)
[2019-12-15 16:39] LABS: Add Urine Culture? No; Bacteria Urine 1+; WBC Urine 0-4 /hpf (0-5)
[2019-12-15 16:50] VITALS: BP 151/73; PULSE 61; RESP 18; O2SAT 97
[2019-12-15 17:06] LABS: Acetaminophen 12.4 ug/mL (10-30); Alanine Aminotransferase 20 U/L (0-33); Alkaline Phosphatase 63 IU/L (35-105); Aspartate Amino Transferase 21 U/L (0-32); Blood Urea Nitrogen 24 mg/dL (8-23); Calcium 10.4 mg/dL (8.5-10.5); Carbon Dioxide 25 mmol/L (22-29); Creatine Phosphokinase 54 U/L (26-192); Globulin 4.2 g/dL (1.3-4.6); Glucose 119 mg/dL (65-115); Total Bilirubin 0.4 mg/dL (0.15-1.2); Total Protein 8.2 g/dL (6.6-8.7)
[2019-12-15 17:26] LABS: Anion Gap 20.2 (5-19); Chloride 95 mmol/L (98-107); Osmolality Calculated 280 mOsm/kg (285-295); Potassium 4.2 mmol/L (3.5-5.1); Sodium 136 mmol/L (136-145)
--- NOTE | 2019-12-15 17:40 | ECG_ITS ---
Measurements Intervals [place] Rate: 64 P: 34 HI: 168 QRS: 30 QRSD: 85 T: 31 QT: 409 QTc: 422 SINUS RHYTHM POSSIBLE LEFT ATRIAL ENLARGEMENT [-0.1mV P WAVE IN V1/V2] Compared to ECG 12/03/2015 04:41:58 No significant changes Electronically Signed On 12-16-2019 18:09:02 CDT by Isai Arthur M.D. [id number]
[2019-12-15] MEDS: sodium chloride 0.9% 1,000 ML 999 ML IV (18:23)
[2019-12-15 18:41] LABS: Salicylate < 0.3 mg/dL (3-10)
[2019-12-15] MEDS: levofloxacin-dextrose 5 % 500 MG/100 ML PREMIX 100 MG IV (18:43)
[2019-12-15 19:05] LABS: Lactic Sepsis W/Reflex 0.8 mmol/L (0.5-2.2)
[2019-12-15 19:08] LABS: Troponin 5 2HR 26.64 ng/mL (0-10)
[2019-12-15 19:14] LABS: Troponin 5 2HR Delta -2.36 ABS# (0-10)
--- NOTE | 2019-12-15 21:26 | PM.HP ---
Providers/Chief Complaint Primary Care Provider: Sanjay Rosenberg MD Chief Complaint: POST FALL History of Present Illness Bhargavi Flower is a 84 year old female who carries diagnosis of dementia resident of [facility], came in after sustaining a fall. Patient is not a reliable historian. I called [facility] to get more history. There stating that she is waiting to be placed to dementia unit, her memory impairment is limiting her daily activities, she needs help for most of the activities, she has been eating well at the dinnertime, no recent fever, vomiting noticed at the [facility]. She has had fallen in the past. Today she was found on the floor in prone position, and there was fecal matter around her on the floor hence was transferred to the ER for further evaluation. Diagnostics in ER revealed, leukocytosis, normal hemodynamics, CT head negative for acute intracranial pathology, chest x-ray did not show new infiltrates however positive for interstitial thickening and vascular prominence with right hemidiaphragm, currently saturating well on room air I have discontinued her nasal cannula she was put on 2 L by the ER. Patient is endorsing dysuria, denying diarrhea, nausea, chest pain, shortness of breath otherwise not able to provide much detail. She was given 1 L normal saline along 1 dose of Levaquin in the ER. Review of Systems Const: Denies: fever, chills or body aches Eyes: Reports: eye discharge, eye redness and dry eyes ENMT: Denies: throat pain Card: Denies: chest pain or palpitations Resp: Denies: shortness of breath GI: Denies: abdominal pain : Reports: painful urination and urinary frequency; Denies: flank pain or difficulty urinating Musc: Denies: neck pain or back pain Skin/Breast: Denies: rash Neuro: Denies: headache Psych: Denies: anxiety Endo: Denies: excessive urination Kyle/Lymph: Denies: easy bruising All/Imm: Denies: hives Medications/Allergies Home Medications Medication Instructions Recorded Confirmed Last Taken Type acetaminophen [Tylenol] 325 - 650 mg PO QID PRN 12/15/19 12/15/19 Unknown History calcium carbonate-vitamin D3 1 tab PO DAILY 12/15/19 12/15/19 Unknown History [Calcium 600 + D(3)] cyanocobalamin (vitamin B-12) 1,000 mcg IM Q30D 12/15/19 12/15/19 Unknown History sodium phosphates [Fleet Enema] 118 ml [place] DAILY PRN 12/15/19 12/15/19 Unknown History Allergies Allergy/AdvReac Type Severity Reaction Status Date / Time aspirin Allergy Unknown unknown Verified 12/15/19 15:06 codeine Allergy Unknown unknown Verified 12/15/19 15:06 erythromycin base Allergy Unknown unknown Verified 12/15/19 15:06 [From T-Stat] ethyl alcohol [From T-Stat] Allergy Unknown unknown Verified 12/15/19 15:06 meperidine [From Demerol] Allergy Unknown unknown Verified 12/15/19 15:06 Pxnxeqt-Bfy-Mgr Reductase Allergy Unknown unknown Verified 12/15/19 15:06 Inhibitor isosorbide [From Imdur] AdvReac Unknown headache Verified 12/15/19 15:06 PFSH Acute PFSH: Medical History Anxiety Atherosclerotic heart disease of [place] coronary artery without angina pectoris Carotid artery stenosis Carotid artery stenosis with cerebral infarction Chronic cystitis Coronary artery disease DJD (degenerative joint disease) Dyslipidemia (high LDL; low HDL) Hypertension Swelling of left lower extremity Surgical History History of vaginal hysterectomy Hx of CABG Hx of cataract surgery Hx of cholecystectomy Family History Other CAD (coronary artery disease) Cancer Family history of premature coronary artery disease Social History Smoking and tobacco status: never smoked Alcohol intake: never Adopted: No Caregiver/support person: No Lives independently: No Household members: family Marital status: / Current occupational status: retired History of recent travel: No Current gender identity: Female Vitals/I&O/Wt Last Vital Signs Temp 98.6 F 12/15/19 14:58 Pulse 61 12/15/19 16:50 Resp 18 12/15/19 16:50 BP 151/73 12/15/19 16:50 Pulse Ox 97 12/15/19 16:50 Weight last 48 hrs Weight 58.967 kg Physical Exam Narrative: EXAM NARRATIVE: Elderly female very frail, not able to tell me why she is in the hospital Oriented to place and person Cognitive impairment S1, S2 sinus bradycardia heart rate 58, systolic blood pressure 120, diastolic 70 mmHg Abdomen soft, nontender, nondistended bowel sound present Mild facial droop towards the left however good strength of upper and lower extremities grade 3/5 flexion and extension of extremities, reflexes equivocal, Able to comprehend my questions, Forgetful otherwise very pleasant to communicate Dry eyes with hyperemia around lower eyelids Data : 12/15/19 16:05 12/15/19 16:05 Micro: Microbiology 12/15/19 16:05 Blood Culture - Preliminary Blood SPECIMEN COLLECTED A&P Assessment and plan (1) Dementia: Status: Acute (2) Delirium: Status: Acute (3) Dehydration: Status: Acute (4) DNR (do not resuscitate): Status: Acute (5) UTI (urinary tract infection): Status: Acute Additional A&P Information Acute delirium with underlying dementia due to UTI and dehydration Received 1 L of normal saline Mild leukocytosis, was given Levaquin for possibility of pneumonia, x-ray showing chronic changes I will give her ceftriaxone, urinalysis unremarkable however patient is endorsing dysuria and frequency CT head negative, chest x-ray did not reveal new consolidation Obtain urine culture, patient is afebrile Sinus bradycardia noticed on EKG, hold beta-garland, monitor heart rate as this could be very well because of her recent fall at the facility Patient is not able to recall her last bowel movement, [facility] stated that her bowel movement was of regular consistency when she was found on the floor, her abdomen is nontender, bowel sounds are sluggish, monitor for overflow diarrhea Dementia: Patient is waiting placement to dementia unit/[facility] DNR/DNI Cardiac diet DVT prophylaxis: SCDs avoid anticoagulation for risk of falls Attestations Medical Necessity Statement*: Anticipating discharge in less than 48 hours, needs fluid resuscitation and antibiotics for UTI Time Spent in Patient Care: 40 Coding Level of Care Code 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
[2019-12-15 23:24] VITALS: BP 109/70; PULSE 86; RESP 16; O2SAT 92
[2019-12-16] VITALS (8 sets, daily range): BP systolic 152–188; BP diastolic 63–80; PULSE 59–80; RESP 16–18; TEMP 36.6–37.2; O2SAT 89–94
--- NOTE | 2019-12-16 00:02 | XR_ITS ---
WS: [id number] ABDOMEN KUB CLINICAL INFORMATION: Renal/ureteral calculi. COMPARISON: None. FINDINGS: Normal bowel gas pattern. Scattered air normal caliber small and large bowel. No significant bowel di stention. Lumbar curve convex left. Osteopenia. Cholecystectomy clips. Pelvic phleboliths. Sternotomy . XR/XR KUB portable [id number] Impression: Unremarkable bowel gas pattern.
[2019-12-16] MEDS: sodium chloride 0.9% 1,000 ML 30 ML IV (01:03)
[2019-12-16 03:57] LABS: Anion Gap 15.7 (5-19); Blood Urea Nitrogen 21 mg/dL (8-23); Calcium 9.5 mg/dL (8.5-10.5); Carbon Dioxide 26 mmol/L (22-29); Chloride 99 mmol/L (98-107); Glucose 105 mg/dL (65-115); Osmolality Calculated 281 mOsm/kg (285-295); Potassium 3.7 mmol/L (3.5-5.1); Sodium 137 mmol/L (136-145)
[2019-12-16 04:05] LABS: Basophils % 0.3 %; Eosinophils # 0.2 10^3/uL (0.0-0.8); Eosinophils % 2.2 %; Hematocrit 36.9 % (37.0-47.0); Lymphocytes % 21.9 %; Mean Corpuscular HGB Conc 32.5 g/dL (30.0-36.0); Mean Corpuscular Hemoglobin 31.1 pg (28.0-34.0); Mean Corpuscular Volume 95.6 fL (81-99); Monocytes # 0.7 10^3/uL (0.2-0.9); Monocytes % 8.2 %; Neutrophils # 6.1 10^3/uL (1.8-7.7); Neutrophils % 67.2 %; Nucleated Red Blood Cells % 0 %; Platelet Count 158 10^3/cmm (130-400); Red Blood Count 3.86 10^6/uL (4.1-5.3); Red Cell Distribution Width 12.9 % (12.1-15.1); White Blood Count 9.1 10^3/uL (4.0-10.0)
[2019-12-16] MEDS: sertraline 100 mg Tablet 150 MG PO (08:18)
[2019-12-16] MEDS: risperiDONE 0.25 mg Tablet 0.5 MG PO (08:19)
[2019-12-16] MEDS: amlodipine 10 mg Tablet PO (08:20)
[2019-12-16] MEDS: donepezil 5 MG Tablet 10 MG PO (08:20)
[2019-12-16] MEDS: memantine 5 mg tablet 10 MG PO (08:20)
[2019-12-16] MEDS: pantoprazole DR 40 mg Tablet PO (08:20)
[2019-12-16] MEDS: cefTRIAXone 1,000 MG in sodium chloride 0.9% (plus) 50 ML 100 MG IV (08:22)
--- NOTE | 2019-12-16 10:02 | PC.CHAP ---
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 [] Patient/Family/Request visit [] Outpatient visit [] Follow-up visit [] Physician referral [] Code/Alert [x] Routine visit [] Staff referral [] Actively dying [] Patient sleeping [] Family support [] [] Out of room [] Palliative care [] [] Receiving care in room [] Pre-surgical visit [] Trauma [] Long length of stay [] ICU visit [] Other: Relational/Emotional Strength [] Patient feels connected with others/family/visitors/staff [] Distress [] Loneliness/isolation [] Abandonment Spirituality of Patient [] Person of Dot [] Attends Taoism of their Dot [] Believes in Prayer [] Reads Bible or Holiness materials [] There are Spiritual issues to be addressed Dust Mixer Interventions [x] Prayer [] Active listening [] Non-anxious presence [] Spiritual/emotional support [] Crisis/trauma care [] Spiritual counseling [] Bereavement support [] Provided bereavement packet [] Provided Bible/devotional materials [] Provided toy/stuffed animal, coloring book to patient or family member [] Provided Communion [] Anointing/Davin [] Salvation [x] Completed spiritual assessment [] Other: Impact on Illness or Injury [] Angry [] Fearful [] Anxious [] Often cries [] Exhaustion [] Unable to work [] Unable to attend zoroastrianism [] Unable to walk/stand [] Unable to read [] Unable to drive [] Unable to eat/drink [] Unable to sleep [] Unable to be with family [] Patient intubated [] Other: Summary Patient still confused. Staff present at the time of visit. Time spent with patient 10min
[2019-12-16 12:54] LABS: Thyroid Stimulating Hormone 3.27 uIU/mL (0.27-4.20)
--- NOTE | 2019-12-16 14:51 | PM.DCS ---
Discharge Providers Date of Admission: 12/15/19 22:43 Date of Discharge: December 16, 2019 Attending Provider at Admission: Estelita Nava MD Attending Provider at Discharge: Johnathan Gonzalez Primary Care Provider: Sanjay Rosenberg MD Diagnoses at Discharge Discharge Diagnosis (1) Dementia: Status: Acute (2) Delirium: Status: Acute (3) Dehydration: Status: Acute (4) DNR (do not resuscitate): Status: Acute (5) UTI (urinary tract infection): Status: Acute Reason for Visit Reason for Visit: Reason For Visit: POST FALL Hospital Course Hospital Course: Pleasantly confused 84-year-old lady with chronic Alzheimer's dementia, past CVA, HTN, HLD, recently having progression with much more difficulty maintaining activities of daily life by herself, requiring significant assistance, chronic lower extremity swelling, was evaluated in the hospital after being found on the floor, with fecal incontinence episode, and prior to that with lethargy at [facility]. She was found dehydrated on presentation, with prerenal acute kidney injury with creatinine of 1.9, which responded well to fluid challenge with good improvement to 1.3, also with noted bradycardia on presentation heart rate in the 50s due to which her metoprolol was held. She received a dose of antibiotic for suspected urinary tract infection as she was endorsing dysuria symptoms. Urinalysis with somewhat lower probability of urinary tract infection, however, due to symptoms will complete the course with Levaquin for 4 more days. Reportedly urine culture was requested on presentation, however, I do not see this, and will request to added to the urine sample obtained initially. Her mental status as significantly improved with treatment, she is awake and alert, pleasant today, denies any complaints. She does have a propensity to wander off, and had to be watched closely in the hospital. Her other work-up showed normal TSH, unremarkable electrolytes and liver parameters. No elevation of CK. Troponin with minimal elevation, without any rise, not suggestive of acute ID. She has been chest pain-free. Initial bradycardia has resolved. Dehydration improved. She is feeling well and denying any complaints. She tested positive for benzodiazepine on urine drug screen likely from as needed Xanax. Chest x-ray without finding of pneumonia, but with emphysema. She has been saturating well on room air. KUB unremarkable. CT C-spine without fracture, with degenerative changes. CT of the head showing chronic microvascular disease, as well as old basal ganglia lacunar infarcts. Her blood pressures have been variable, normal at first, but with some elevation towards the end of the hospitalization. She has remained afebrile, without any respiratory complaints, and COVID-19 infection was not suspected. Discussed all of the findings in her condition with her daughter Nancie, I could not reach her daughter Marsha. She reports that occasionally patient will sound like she is speaking with her mouth full, although I did not experience this today, and her other daughter speak with her in the morning stated that her speech was normal. Nancie had been speaking with her around lunchtime. Discussed with her that food pocketing around that time may be responsible for this, and occasional similar symptoms may sometimes be due to dehydration which was noted on presentation, as well as some of her medications including Xanax. Family were wondering about possibly CVA, although on assessment she does not have any persistent sequela or focal neurologic deficits, and discussed with her that TIA may be possible. Discussed with her results of the CT, and she stated that they are aware she has had CVA in the past. Unfortunately she has been intolerant of aspirin and statins, and these have been unable to be administered. She had a carotid Doppler ultrasound done just last month, which showed mild to moderate plaque disease bilaterally. Discussed with her that optimization of risk factors for future CVA may be considered depending on goals of care. With more aggressive goals of care, discussion about possible Plavix added after she is found to have no longer recurrence of any fall or syncope to avoid risk of bleeding may be considered. Better control of blood pressure which appears may be putting her at risk of lacunar strokes may be considered as well, although again at possible cost of increased risk of falls. Her sister states that at this time family has been leaning more toward comfort rather than additional diagnostic and treatment interventions. I encouraged him to discuss again regarding goals of care with primary care provider on subsequent follow-up appointments. Patient herself is feeling well. She has been accepted for placement to [facility]. She will complete the course of Levaquin. Final urine culture will need to be followed up. At this time we will discontinue her Lasix, and decrease metoprolol dose to 12.5 mg ER once a day. Please monitor her heart rate to reassess for any recurrence of bradycardia. Consider follow-up of renal function. Avoid NSAIDs and dehydration. Since metoprolol dose is decreased in furosemide discontinued for now hydralazine 10 mg twice a day is added to assist in blood pressure control. Please continue to readdress goals of care with family, and if they decide to pursue more aggressive course of action, assist in more intensive optimization of risk factors for CVA. Physical Exam Const: COMMON NORMALS: no apparent distress; negative for oriented x3 OTHER: Pleasant, conversant. HENMT: COMMON NORMALS: oropharynx normal Neck/C-Spine: COMMON NORMALS: no JVD Resp: COMMON NORMALS: normal respiratory effort and clear to auscultation bilaterally AUSCULTATION: clear to auscultation bilaterally Cardio: COMMON NORMALS: no JVD, regular rhythm, S1 normal heart sound, S2 normal heart sound and no murmurs RHYTHM: regular rhythm HEART SOUNDS: S1 normal and S2 normal GI: COMMON NORMALS: normal to inspection, nondistended, normoactive bowel sounds, soft to palpation and non-tender PALPATION: Yes soft Extremity: COMMON NORMALS: no joint enlargement and no pedal edema Neuro: COMMON NORMALS: moves all extremities and no focal motor deficits; negative for oriented x3 Skin: COMMON NORMALS: no rashes or lesions noted GENERAL SKIN EXAM: no rashes or lesions noted Discharge Data Data Completed and Pending: Completed Studies During Hospitalization Category Date Time Status CT cervical spin wo con* [id number] Urge nt Cat Scan 12/15/19 15:[address] head wo con* 7 [id number] Urgent Cat Scan 12/15/19 15:07 Completed XR KUB portable 7 [id number] Routine Exams 12/16/19 00:02 Completed XR chest 1V mansoor ble [id number] Urgent Exams 12/15/19 15:39 Completed Pending at discharge Category Date Time Status Blood Culture Sta t Lab 12/15/19 16:05 Results Urine Culture Rou raciel Lab 12/16/19 14:50 Uncollected Labs from last 24 hours 12/16/19 12/16/19 12/16/19 03:20 03:20 03:20 WBC 9.1 RBC 3.86 L Hgb 12.0 Hct 36.9 L MCV 95.6 MCH 31.1 MCHC 32.5 RDW 12.9 Plt Count 158 MPV 10.0 Neut % (Auto) 67.2 Lymph % (Auto) 21.9 [place] % (Auto) 8.2 Eos % (Auto) 2.2 Baso % (Auto) 0.3 Neut # (Auto) 6.1 Lymph # (Auto) 2.0 [place] # (Auto) 0.7 Eos # (Auto) 0.2 Baso # (Auto) 0.0 Nucleated RBC % (a uto) 0 Nucleated RBCs # 0.0 PT INR APTT Sodium 137 Potassium 3.7 Chloride 99 Carbon Dioxide 26 Anion Gap 15.7 BUN 21 Creatinine 1.3 H Glucose 105 Calculated Osmolal ity 281 L Lactic Acid Lactate Calcium 9.5 Total Bilirubin AST ALT Alkaline Phosphata se Creatine Kinase Troponin T Baselin e Troponin T 120 Min [place] Troponin T Total Protein Albumin Globulin TSH 3.27 Urine Color Urine Appearance Urine pH Ur Specific Gravit y Urine Protein Urine Glucose (UA) Urine Ketones Urine Blood Urine Nitrate Urine Bilirubin Urine Urobilinogen Ur Leukocyte [place] Urine RBC Urine WBC Ur Squamous Epith Cells Ur Transition Epit h Cell Urine Bacteria Hyaline Casts Salicylates Urine Opiates Scre en Acetaminophen Ur Barbiturates Sc reen Ur Phencyclidine S crn Ur Amphetamines Sc reen U Benzodiazepines Scrn Urine Cocaine Scre en U Marijuana (THC) Screen 12/15/19 12/15/19 12/15/19 18:20 17:57 16:05 WBC RBC Hgb Hct MCV MCH MCHC RDW Plt Count MPV Neut % (Auto) Lymph % (Auto) [place] % (Auto) Eos % (Auto) Baso % (Auto) Neut # (Auto) Lymph # (Auto) [place] # (Auto) Eos # (Auto) Baso # (Auto) Nucleated RBC % (a uto) Nucleated RBCs # PT 13.70 H INR 1.02 APTT 30.5 Sodium Potassium Chloride Carbon Dioxide Anion Gap BUN Creatinine Glucose Calculated Osmolal ity Lactic Acid 0.8 Lactate Calcium Total Bilirubin AST ALT Alkaline Phosphata se Creatine Kinase Troponin T Baselin e Troponin T 120 Min [place] 26.64 H Delta Troponin T -2.36 L Total Protein Albumin Globulin TSH Urine Color Urine Appearance Urine pH Ur Specific Gravit y Urine Protein Urine Glucose (UA) Urine Ketones Urine Blood Urine Nitrate Urine Bilirubin Urine Urobilinogen Ur Leukocyte [place] Urine RBC Urine WBC Ur Squamous Epith Cells Ur Transition Epit h Cell Urine Bacteria Hyaline Casts Salicylates Urine Opiates Scre en Acetaminophen Ur Barbiturates Sc reen Ur Phencyclidine S crn Ur Amphetamines Sc reen U Benzodiazepines Scrn Urine Cocaine Scre en U Marijuana (THC) Screen 12/15/19 12/15/19 12/15/19 16:05 16:05 16:05 WBC RBC Hgb Hct MCV MCH MCHC RDW Plt Count MPV Neut % (Auto) Lymph % (Auto) [place] % (Auto) Eos % (Auto) Baso % (Auto) Neut # (Auto) Lymph # (Auto) [place] # (Auto) Eos # (Auto) Baso # (Auto) Nucleated RBC % (a uto) Nucleated RBCs # PT INR APTT Sodium 136 Potassium 4.2 Chloride 95 L Carbon Dioxide 25 Anion Gap 20.2 H BUN 24 H Creatinine 1.9 H Glucose 119 H Calculated Osmolal ity 280 L Lactic Acid Lactate 1.3 Calcium 10.4 Total Bilirubin 0.4 AST 21 ALT 20 Alkaline Phosphata se 63 Creatine Kinase 54 Troponin T Baselin e 29 H Troponin T 120 Min [place] Troponin T Total Protein 8.2 Albumin 4.0 Globulin 4.2 TSH Urine Color Urine Appearance Urine pH Ur Specific Gravit y Urine Protein Urine Glucose (UA) Urine Ketones Urine Blood Urine Nitrate Urine Bilirubin Urine Urobilinogen Ur Leukocyte [place] Urine RBC Urine WBC Ur Squamous Epith Cells Ur Transition Epit h Cell Urine Bacteria Hyaline Casts Salicylates < 0.3 L Urine Opiates Scre en Acetaminophen 12.4 Ur Barbiturates Sc reen Ur Phencyclidine S crn Ur Amphetamines Sc reen U Benzodiazepines Scrn Urine Cocaine Scre en U Marijuana (THC) Screen 12/15/19 12/15/19 12/15/19 16:05 16:02 16:02 WBC 15.3 H RBC 4.19 Hgb 12.9 Hct 40.5 MCV 96.7 MCH 30.8 MCHC 31.9 RDW 12.9 Plt Count 186 MPV 9.8 Neut % (Auto) 73.2 Lymph % (Auto) 19.2 [place] % (Auto) 6.6 Eos % (Auto) 0.5 Baso % (Auto) 0.2 Neut # (Auto) 11.2 H Lymph # (Auto) 3.0 [place] # (Auto) 1.0 H Eos # (Auto) 0.1 Baso # (Auto) 0.0 Nucleated RBC % (a uto) 0 Nucleated RBCs # 0.0 PT INR APTT Sodium Potassium Chloride Carbon Dioxide Anion Gap BUN Creatinine Glucose Calculated Osmolal ity Lactic Acid Lactate Calcium Total Bilirubin AST ALT Alkaline Phosphata se Creatine Kinase Troponin T Baselin e Troponin T 120 Min [place] Troponin T Total Protein Albumin Globulin TSH Urine Color Yellow Urine Appearance Clear Urine pH 7 Ur Specific Gravit y 1.010 Urine Protein 3+ H Urine Glucose (UA) Norm Urine Ketones Negative Urine Blood Neg Urine Nitrate Negative Urine Bilirubin Neg Urine Urobilinogen Norm Ur Leukocyte [place] Negative Urine RBC None Urine WBC 0-4 H Ur Squamous Epith Cells 5-10 H Ur Transition Epit h Cell 5-10 Urine Bacteria 1+ H Hyaline Casts 5-10 H Salicylates Urine Opiates Scre en Negative Acetaminophen Ur Barbiturates Sc reen Negative Ur Phencyclidine S crn Negative Ur Amphetamines Sc reen Negative U Benzodiazepines Scrn Positive H Urine Cocaine Scre en Negative U Marijuana (THC) Screen Negative Vitals: Last Vital Signs Temp 98.6 F 12/16/19 11:27 Pulse 71 12/16/19 11:27 Resp 18 12/16/19 11:27 BP 178/76 12/16/19 11:32 Pulse Ox 91 12/16/19 11:27 Discharge Plan Discharge Patient Disposition: Xfer SNF Condition: Stable Prescriptions: New metoprolol succinate 25 mg tablet extended release 24 hr 12.5 mg PO DAILY Qty: 15 RF: 0 Levaquin 750 mg tablet 750 mg PO DAILY 4 Days Qty: 4 RF: 0 hydralazine 10 mg tablet 10 mg PO BID Qty: 60 RF: 0 Continued amlodipine 10 mg tablet 10 mg PO DAILY RF: 0 nitroglycerin 6.5 mg capsule, extended release 6.5 mg PO BID RF: 0 methenamine hippurate 1 gram tablet 1 gm PO BID RF: 0 ascorbic acid (vitamin C) 500 mg capsule 500 mg PO BID RF: 0 nitroglycerin [Nitrostat] 0.4 mg tablet, sublingual 0.4 mg SUBLINGUAL Q5M PRN (Reason: CHEST PAINS) RF: 0 donepezil [Aricept] 10 mg tablet 10 mg PO BEDTIME RF: 0 memantine [Namenda] 10 mg tablet 10 mg PO BID RF: 0 albuterol sulfate 90 mcg/actuation aerosol powdr breath activated 1 inh INHALATION QID PRN (Reason: Shortness Of Breath) RF: 0 red yeast rice 600 mg tablet 600 mg PO DAILY RF: 0 omega-3 fatty acids [Fish Oil Concentrate] 1,000 mg capsule 600 mg PO BID RF: 0 sertraline [Zoloft] 100 mg tablet 150 mg PO DAILY RF: 0 alprazolam 0.25 mg tablet 0.25 mg PO BID PRN (Reason: Anxiety) RF: 0 multivitamin Tablet 1 tab PO DAILY RF: 0 esomeprazole magnesium [Nexium] 40 mg capsule,delayed release(DR/EC) 20 mg PO DAILY RF: 0 Symbicort 80-4.5 mcg/actuation HFA aerosol inhaler 2 puff INHALATION BID RF: 0 Culturelle 10 billion cell capsule 1 cap PO DAILY RF: 0 risperidone [Risperdal] 0.5 mg tablet 0.5 mg PO BID RF: 0 magnesium hydroxide [Milk of Magnesia] 400 mg/5 mL suspension 400 mg PO DAILY PRN (Reason: Constipation) RF: 0 bisacodyl 10 mg suppository 10 mg TN DAILY PRN (Reason: Constipation) RF: 0 Tylenol 325 mg Tablet 325 - 650 mg PO QID PRN (Reason: Pain) RF: 0 cyanocobalamin (vitamin B-12) 1,000 mcg/mL Solution 1,000 mcg IM Q30D RF: 0 Fleet Enema 19-7 gram/118 mL Enema 118 ml TN DAILY PRN (Reason: CONSTIPATED) RF: 0 Calcium 600 + D(3) 600-125 mg-unit Tablet 1 tab PO DAILY RF: 0 Discontinued metoprolol succinate 50 mg tablet extended release 24 hr 50 mg PO DAILY RF: 0 furosemide [Lasix] 20 mg tablet 20 mg PO DAILY RF: 0 Discharge Orders: Discharge Order (Routine); Ordered 12/16/19 Ordered By: Johnathan Gonzalez Referrals: Sanjay Rosenberg MD [Primary Care Provider] - 4-7 days Discharge Diet: Cardiac and Low Salt Discharge Activity: Increase activity as tolerated and Limit activity as instructed Activity Restrictions/Additional Instructions: Strict fall precautions. At risk of wandering. Requires assistance with ADLs. Avoid any NSAIDs. Avoid dehydration. For now diuretic is discontinued. If becoming fluid overloaded, please reassess. Episode of bradycardia on presentation. Please monitor heart rates 3 times daily. At this time metoprolol dose is decreased down to 12.5 mg daily. 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 Per family she has allergy to aspirin and statins. If more aggressive course of action is pursued and she is no longer at risk of falling, consider discussion regarding Plavix, and a family wishing to pursue more aggressive course of action referral to neurology. Monitor blood pressures 3 times daily, and help optimize control. Urine culture was requested on admission, follow-up final results. Complete course of treatment with Levaquin for suspected urinary tract infection. Discharge Attestations Time Spent in Discharge Care*: greater than 30 min Quality Metrics Clinical Quality Measures During this hospital stay, did patient experience: None Coding Level of Care Code Acute Acid Leveler for g Fwd Diagnoses Dementia F03.90 Delirium R41.0 Dehydration E86.0 DNR (do not resuscitate) Z66 UTI (urinary tract infection) N39.0
[2019-12-16 17:54] LABS: Estmated Average Glucose 117; Hemoglobin A1C 5.7 % (4.0-6.0)
== END 2019-12-16 17:57 | disposition skilled nursing facility (03) ==
LOC: ER 19:30 → MEDSURG 12-16 08:01
PROVIDERS: Physician Assistant; Admitting Provider Internal Medicine; Emergency Provider Nurse Practitioner Family; Family Provider Family Medicine; PCP Family Medicine; Visit Provider Internal Medicine
DX: F03.90 Unspecified dementia, unspecified severity, without behavioral disturbance, psychotic disturbance, mood disturbance, and anxiety (principal); R41.0 Disorientation, unspecified; E86.0 Dehydration; Z66 Do not resuscitate; N39.0 Urinary tract infection, site not specified; I25.10 Atherosclerotic heart disease of native coronary artery without angina pectoris; E78.5 Hyperlipidemia, unspecified; I10 Essential (primary) hypertension; Z95.1 Presence of aortocoronary bypass graft; Z82.49 Family history of ischemic heart disease and other diseases of the circulatory system; Z91.81 History of falling; Z79.899 Other long term (current) drug therapy
CPT/HCPCS: 12345; 36415; 70450; 71045; 72125; 74018; 80048; 80053; 80306; 80307; 81001; 82550; 83036; 83605; 84443; 84484; 85025; 85610; 85730; 87040; 93005; 96365; 99283; 99285; G0378; J0696; J1956; J7030

== ENCOUNTER 2020-01-03 22:09 | Emergency (ER) | payer MEDICARE, OTHER, MEDICAID, SELFPAY ==
--- NOTE | 2020-01-03 22:11 | XR_ITS ---
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 Moderate elevation of the RIGHT hemidiaphragm is stable. Diffuse stable chronic scarring and intersti tial thickening and atelectasis. No superimposed pneumonia or CHF appreciated. No pleural effusion or pneumothorax. Cardiac size: Mildly enlarged cardiac silhouette. Mediastinum/Aorta: Moderate atherosclerosis aorta. Severe osteopenia. XR/XR chest 1V portable [id number] IMPRESSION: 1. Stable chest with prior CABG. 2. No pneumonia or fluid overload. 3. Chronic emphysema.
--- NOTE | 2020-01-03 22:16 | ED_ITS ---
HPI - Chest Pain General: Chief Complaint: Chest Pain Stated Complaint: chest pain Time Seen by Provider: 01/03/20 22:11 Source: patient Mode of arrival: ambulatory Limitations: no limitations History of Present Illness: HPI narrative: 84-year-old female was brought in from the [facility] this evening for complaints of chest pain. Patient was given 3 nitro tablets sublingually prior to arrival of EMS. It was reported to EMS that patient had a elevated blood pressure of 200 systolic. Patient at this time denies any chest pain or difficulty breathing. Patient does have a history of dementia, hypertension, coronary artery disease, anxiety, and emphysema. Review of Systems General: Reports: 10 or more systems reviewed and unremarkable except in HPI and below Card: Reports: chest pain PFSH ED PFSH: Social History Smoking and tobacco status: never smoked Alcohol intake: never Adopted: No Caregiver/support person: No Lives independently: No Household members: family Marital status: / Current occupational status: retired History of recent travel: No Current gender identity: Female Physical Exam Const: COMMON NORMALS: no apparent distress and oriented x3 GENERAL APPEARANCE: cooperative HENMT: COMMON NORMALS: normocephalic, TM's normal bilaterally and external n ose normal HEAD & SCALP: normal to inspection and normocephalic NOSE: external nose normal TYMPANIC MEMBRANE: TM's normal bilaterally MOUTH: oral and palatal mucosa normal THROAT: posterior oropharynx normal Eye: GENERAL EYE: normal appearance of both eyes Neck/C-Spine: COMMON NORMALS: full ROM Lymph: LYMPHATIC: no lymphadenopathy noted Chest: COMMONS NORMALS: inspection of chest normal Resp: COMMON NORMALS: normal respiratory effort EFFORT & INSPECTION: Yes able to speak in complete sentences Cardio: COMMON NORMALS: regular rate and regular rhythm RATE: regular rate RHYTHM: regular rhythm GI: COMMON NORMALS: non-tender : COMMON NORMALS: Yes no CVA tenderness BLADDER/KIDNEY EXAM: Yes no CVA tenderness Back/Pelvis: COMMON NORMALS: no CVA tenderness and thoracic and lumbar spine normal to inspection Extremity: COMMON NORMALS: normal to inspection Neuro: COMMON NORMALS: oriented x3 and moves all extremities Psych: COMMON NORMALS: mental status grossly normal and cooperative Skin: COMMON NORMALS: no rashes or lesions noted GENERAL SKIN EXAM: no rashes or lesions noted Course ED course: 2332, patient was given Haldol IV for anxiety and wandering. Vital Signs: Vital signs: Vital Signs Temperature 98.4 F 01/03/20 22:23 Pulse Rate 71 01/03/20 23:50 Respiratory Rate 20 H 01/03/20 23:50 Blood Pressure 177/78 01/03/20 23:50 Pulse Oximetry 94 01/03/20 22:23 MDM - Chest Pain MDM Narrative: Medical decision making narrative: Patient was brought over from [facility] for concerns of chest discomfort. On arrival to the emergency room patient reported that she could not remember why she was here. Patient does have a history of dementia. Exam notes no swelling of the lower extremities clear lung sounds, and regular heart rate. EKG showed sinus rhythm with no ST elevation or significant ectopy. Laboratory values noted normal white blood cell count, sodium 134, potassium 3.4, and a creatinine 1.2. Chest x-ray showed no infiltrate. Urinalysis was contaminated with skin cells. Patient had no complaints of chest pain while at the emergency room. Patient was released to go return to the [facility], with recommendations for continuing medications and following up with primary care. Lab Data: Labs: Lab Results 01/03/20 01/03/20 01/03/20 Range/Units 23:21 23:46 23:46 WBC 8.9 (4.0-10.0) 10^3/ uL RBC 3.91 L (4.1-5.3) 10^6/u L Hgb 12.1 (11.5-15.3) g/dL Hct 37.1 (37.0-47.0) % MCV 94.9 (81-99) fL MCH 30.9 (28.0-34.0) pg MCHC 32.6 (30.0-36.0) g/dL RDW 13.1 (12.1-15.1) % Plt Count 214 (130-400) 10^3/c mm MPV 9.3 (7.4-10.4) fL Neut % (Auto) 64.9 % Lymph % (Auto) 24.1 % [place] % (Auto) 9.0 % Eos % (Auto) 1.6 % Baso % (Auto) 0.2 % Neut # (Auto) 5.8 (1.8-7.7) 10^3/u L Lymph # (Auto) 2.1 (0.8-4.8) 10^3/u L [place] # (Auto) 0.8 (0.2-0.9) 10^3/u L Eos # (Auto) 0.1 (0.0-0.8) 10^3/u L Baso # (Auto) 0.0 (0.0-0.1) 10^3/u L Nucleated RBC % (a uto) 0 % Nucleated RBCs # 0.0 /100WBC Sodium 134 L (136-145) mmol/L Potassium 3.4 L (3.5-5.1) mmol/L Chloride 94 L (98-107) mmol/L Carbon Dioxide 27 (22-29) mmol/L Anion Gap 16.4 (5-19) BUN 12 (8-23) mg/dL Creatinine 1.2 H (0.5-0.9) mg/dL Glucose 107 (65-115) mg/dL Calculated Osmolal ity 275 L (285-295) mOsm/k g Calcium 9.6 (8.5-10.5) mg/dL Magnesium 1.9 (1.7-2.3) mg/dL Total Bilirubin 0.3 (0.15-1.2) mg/dL AST 17 (0-32) U/L ALT 10 (0-33) U/L Alkaline Phosphata se 64 (35-105) IU/L Troponin T Baselin e (0-10) ng/mL NT-Pro-B Natriuret Pep 542 H (0-450) pg/mL Total Protein 7.4 (6.6-8.7) g/dL Albumin 3.9 (3.5-5.2) g/dL Globulin 3.5 (1.3-4.6) g/dL TSH 2.92 (0.27-4.20) uIU/ mL Urine Color Yellow (Yellow) Urine Appearance Sl hazy (CLEAR) Urine pH 7 (5-7) Ur Specific Gravit y 1.005 (1.005-1.030) Urine Protein 1+ H (Negative) Urine Glucose (UA) Norm (Normal) Urine Ketones Negative (Negative) Urine Blood Neg (Negative) Urine Nitrate Negative (Negative) Urine Bilirubin Neg (NEGATIVE) Urine Urobilinogen Norm (Negative) mg/dL Ur Leukocyte Althea ase Trace H (Negative) Urine RBC 0-4 H (0-2) /hpf Urine WBC 15-25 H (0-5) /hpf Ur Squamous Epith Cells 15-25 H (0-5) Urine Bacteria Trace (NONE) 01/03/20 Range/Units 23:46 WBC (4.0-10.0) 10^3/ uL RBC (4.1-5.3) 10^6/u L Hgb (11.5-15.3) g/dL Hct (37.0-47.0) % MCV (81-99) fL MCH (28.0-34.0) pg MCHC (30.0-36.0) g/dL RDW (12.1-15.1) % Plt Count (130-400) 10^3/c mm MPV (7.4-10.4) fL Neut % (Auto) % Lymph % (Auto) % [place] % (Auto) % Eos % (Auto) % Baso % (Auto) % Neut # (Auto) (1.8-7.7) 10^3/u L Lymph # (Auto) (0.8-4.8) 10^3/u L [place] # (Auto) (0.2-0.9) 10^3/u L Eos # (Auto) (0.0-0.8) 10^3/u L Baso # (Auto) (0.0-0.1) 10^3/u L Nucleated RBC % (a uto) % Nucleated RBCs # /100WBC Sodium (136-145) mmol/L Potassium (3.5-5.1) mmol/L Chloride (98-107) mmol/L Carbon Dioxide (22-29) mmol/L Anion Gap (5-19) BUN (8-23) mg/dL Creatinine (0.5-0.9) mg/dL Glucose (65-115) mg/dL Calculated Osmolal ity (285-295) mOsm/k g Calcium (8.5-10.5) mg/dL Magnesium (1.7-2.3) mg/dL Total Bilirubin (0.15-1.2) mg/dL AST (0-32) U/L ALT (0-33) U/L Alkaline Phosphata se (35-105) IU/L Troponin T Baselin e 29 H (0-10) ng/mL NT-Pro-B Natriuret Pep (0-450) pg/mL Total Protein (6.6-8.7) g/dL Albumin (3.5-5.2) g/dL Globulin (1.3-4.6) g/dL TSH (0.27-4.20) uIU/ mL Urine Color (Yellow) Urine Appearance (CLEAR) Urine pH (5-7) Ur Specific Gravit y (1.005-1.030) Urine Protein (Negative) Urine Glucose (UA) (Normal) Urine Ketones (Negative) Urine Blood (Negative) Urine Nitrate (Negative) Urine Bilirubin (NEGATIVE) Urine Urobilinogen (Negative) mg/dL Ur Leukocyte Althea ase (Negative) Urine RBC (0-2) /hpf Urine WBC (0-5) /hpf Ur Squamous Epith Cells (0-5) Urine Bacteria (NONE) EKG Data^: EKG 1: Attestation: I personally reviewed and interpreted this EKG as follows: (2225, sinus rhythm, 70 bpm regular, no ectopy or ST elevation) Discharge Plan Discharge Patient Disposition: SNF w Plan Readm Clinical Impression: Atypical chest pain Condition: Stable Prescriptions: No Action amlodipine 10 mg tablet 10 mg PO DAILY RF: 0 nitroglycerin 6.5 mg capsule, extended release 6.5 mg PO BID RF: 0 methenamine hippurate 1 gram tablet 1 gm PO BID RF: 0 ascorbic acid (vitamin C) 500 mg capsule 500 mg PO BID RF: 0 nitroglycerin [Nitrostat] 0.4 mg tablet, sublingual 0.4 mg SUBLINGUAL Q5M PRN (Reason: CHEST PAINS) RF: 0 donepezil [Aricept] 10 mg tablet 10 mg PO BEDTIME RF: 0 memantine [Namenda] 10 mg tablet 10 mg PO BID RF: 0 albuterol sulfate 90 mcg/actuation aerosol powdr breath activated 1 inh INHALATION QID PRN (Reason: Shortness Of Breath) RF: 0 red yeast rice 600 mg tablet 600 mg PO DAILY RF: 0 omega-3 fatty acids [Fish Oil Concentrate] 1,000 mg capsule 600 mg PO BID RF: 0 sertraline [Zoloft] 100 mg tablet 150 mg PO DAILY RF: 0 alprazolam 0.25 mg tablet 0.25 mg PO BID PRN (Reason: Anxiety) RF: 0 multivitamin Tablet 1 tab PO DAILY RF: 0 esomeprazole magnesium [Nexium] 40 mg capsule,delayed release(DR/EC) 20 mg PO DAILY RF: 0 Symbicort 80-4.5 mcg/actuation HFA aerosol inhaler 2 puff INHALATION BID RF: 0 Culturelle 10 billion cell capsule 1 cap PO DAILY RF: 0 risperidone [Risperdal] 0.5 mg tablet 0.5 mg PO BID RF: 0 magnesium hydroxide [Milk of Magnesia] 400 mg/5 mL suspension 400 mg PO DAILY PRN (Reason: Constipation) RF: 0 bisacodyl 10 mg suppository 10 mg [place] DAILY PRN (Reason: Constipation) RF: 0 Tylenol 325 mg Tablet 325 - 650 mg PO QID PRN (Reason: Pain) RF: 0 cyanocobalamin (vitamin B-12) 1,000 mcg/mL Solution 1,000 mcg IM Q30D RF: 0 Fleet Enema 19-7 gram/118 mL Enema 118 ml [place] DAILY PRN (Reason: CONSTIPATED) RF: 0 Calcium 600 + D(3) 600-125 mg-unit Tablet 1 tab PO DAILY RF: 0 metoprolol succinate 25 mg tablet extended release 24 hr 12.5 mg PO DAILY Qty: 15 RF: 0 hydralazine 10 mg tablet 10 mg PO BID Qty: 60 RF: 0 Discharge Orders: Discharge Order (Routine); Ordered 01/04/20 Ordered By: Lonny Durand Referrals: Sanjay Rosenberg MD [Primary Care Provider] - Discharge Diet: Usual diet Discharge Activity: Increase activity as tolerated Patient Instructions: Chest Pain (ED) Activity Restrictions/Additional Instructions: Home and rest. Drink plenty of fluids and continue routine medications as directed. Follow-up with primary care in 1 week. Return to the ER for worsening symptoms. Coding Level of Care Code ED [employer] Remittance Clerk for Chg Fwd Exam Comprehensive
[2020-01-03 22:23] VITALS: BP 186/81; PULSE 71; RESP 16; TEMP 36.9; O2SAT 94; BMI 19.7
[2020-01-03] MEDS: haloperidol inj 5 mg/mL INJ 1 mL 2 MG IVP (23:45)
[2020-01-03 23:50] VITALS: BP 177/78; PULSE 71; RESP 20
[2020-01-03 23:55] LABS: Basophils % 0.2 %; Eosinophils # 0.1 10^3/uL (0.0-0.8); Eosinophils % 1.6 %; Hematocrit 37.1 % (37.0-47.0); Hemoglobin 12.1 g/dL (11.5-15.3); Lymphocytes # 2.1 10^3/uL (0.8-4.8); Lymphocytes % 24.1 %; Mean Corpuscular HGB Conc 32.6 g/dL (30.0-36.0); Mean Corpuscular Hemoglobin 30.9 pg (28.0-34.0); Mean Corpuscular Volume 94.9 fL (81-99); Mean Platelet Volume 9.3 fL (7.4-10.4); Monocytes # 0.8 10^3/uL (0.2-0.9); Neutrophils # 5.8 10^3/uL (1.8-7.7); Neutrophils % 64.9 %; Nucleated Red Blood Cells % 0 %; Platelet Count 214 10^3/cmm (130-400); Red Blood Count 3.91 10^6/uL (4.1-5.3); Red Cell Distribution Width 13.1 % (12.1-15.1); White Blood Count 8.9 10^3/uL (4.0-10.0)
[2020-01-04 00:04] LABS: Add Urine Microscopic? YES; Bilirubin Urine Neg (NEGATIVE); Blood Urine Neg (Negative); Glucose Urine UA Norm (Normal); Ketones Urine Negative (Negative); Leukocyte Esterase Urine Trace (Negative); Nitrate Urine Negative (Negative); Protein Urine 1+ (Negative); Specific Gravity, Urine 1.005 (1.005-1.030); Urine Appearance SL Hazy (CLEAR); Urine Color Yellow (Yellow); Urobilinogen Urine Norm (Negative); pH Urine 7 (5-7)
[2020-01-04 00:06] LABS: Bacteria Urine TRACE; RBC Urine 0-4 /hpf (0-2); Squamous Epithelial Cell Urine 15-25 (0-5); WBC Urine 15-25 /hpf (0-5)
[2020-01-04 00:07] LABS: Add Urine Culture? No
[2020-01-04 00:14] LABS: Troponin(5th) Baseline 29 ng/mL (0-10)
[2020-01-04 00:24] LABS: Alanine Aminotransferase 10 U/L (0-33); Albumin Level 3.9 g/dL (3.5-5.2); Alkaline Phosphatase 64 IU/L (35-105); Anion Gap 16.4 (5-19); Aspartate Amino Transferase 17 U/L (0-32); Blood Urea Nitrogen 12 mg/dL (8-23); Calcium 9.6 mg/dL (8.5-10.5); Carbon Dioxide 27 mmol/L (22-29); Chloride 94 mmol/L (98-107); Creatinine Clr Calc Pharmacy 30.6329; Globulin 3.5 g/dL (1.3-4.6); Glucose 107 mg/dL (65-115); Magnesium 1.9 mg/dL (1.7-2.3); NT Pro B Type Natriuretic Pept 542 pg/mL (0-450); Osmolality Calculated 275 mOsm/kg (285-295); Potassium 3.4 mmol/L (3.5-5.1); Sodium 134 mmol/L (136-145); Thyroid Stimulating Hormone 2.92 uIU/mL (0.27-4.20); Total Bilirubin 0.3 mg/dL (0.15-1.2); Total Protein 7.4 g/dL (6.6-8.7)
== END 2020-01-04 01:21 ==
PROVIDERS: Emergency Medicine; Emergency Provider Nurse Practitioner Family; Family Provider Family Medicine; PCP Family Medicine
DX: R07.89 Other chest pain (principal); I10 Essential (primary) hypertension
CPT/HCPCS: 12345; 71045; 80053; 81001; 83735; 83880; 84443; 84484; 85025; 96374; 99282; 99283; J1630

== ENCOUNTER 2020-01-22 09:51 | Emergency (ER) | payer MEDICARE, OTHER, MEDICAID, SELFPAY ==
--- NOTE | 2020-01-22 09:54 | CT_ITS ---
WS: [id number] CT HEAD NONCONTRAST HISTORY: stroke s/s TECHNIQUE: Contiguous axial imaging performed through the brain in 2.5 mm imaging. Bone and soft tiss ue windows. Sagittal and coronal reformats reviewed. All CT scans at [facility] use at le ast one of these dose optimization techniques: automated exposure control; mA and/or kV adjustment pe r patient size (includes targeted exams where dose is matched to clinical indication); or iterative r econstruction. DLP: 747.01 mGy-cm. COMPARISON: 12/15/2019 No acute intracranial hemorrhage, midline shift or mass effect. Mild atrophy with moderate chronic microvascular ischemic changes. There are small lacunar infarcts i n the basal ganglia. Bilateral external capsule infarcts. Ventricles: Normal size with no hydrocephalus. Paranasal sinuses: As visualized are clear. Mastoid air cells: Well pneumatized. Calvarium and scalp: Skull is intact with no soft tissue edema or swelling. Extensive atherosclerosis within the intracranial carotid arteries. CT/CT head wo con* [id number] IMPRESSION: 1. No acute intracranial hemorrhage or edema. 2. Mild atrophy with moderate chronic microvascular ischemic changes.
[2020-01-22 09:55] VITALS: BP 131/67; PULSE 78; RESP 18; TEMP 36.9; O2SAT 97
--- NOTE | 2020-01-22 10:09 | ECG_ITS ---
Measurements Intervals [place] Rate: 75 P: -12 MI: 159 QRS: 45 QRSD: 85 T: 44 QT: 371 QTc: 416 SINUS RHYTHM POSSIBLE LEFT ATRIAL ENLARGEMENT [-0.1mV P WAVE IN V1/V2] SEPTAL MYOCARDIAL INFARCTION , PROBABLY OLD [40+ ms Q WAVE IN V1/V2] Compared to ECG 12/15/2019 17:46:22 Myocardial infarct finding now present Electronically Signed On 01-23-2020 16:22:00 CDT by Kathia Garcia M.D. [email or web address]
--- NOTE | 2020-01-22 10:09 | XR_ITS ---
WS: [id number] PORTABLE CHEST HISTORY: dyspnea/cough COMPARISON: 01/03/2020 Prior CABG. Lung volumes are decreased. Mild elevation of the RIGHT hemidiaphragm. Worsened thickened interstitia l markings throughout. No areas of dense consolidation. Cardiac size: Normal. Mediastinum/Aorta: Mild atherosclerosis aorta. Severe diffuse osteopenia. XR/XR chest 1V portable [id number] IMPRESSION: Chronic interstitial lung disease and calcified aorta. No acute pneumonia.
[2020-01-22 10:12] VITALS: O2SAT 89
--- NOTE | 2020-01-22 10:31 | ED_ITS ---
HPI - Neuro Symptoms/Deficit General: Chief Complaint: Neuro Symptoms/Deficit Stated Complaint: stoke like s/s Time Seen by Provider: 01/22/20 10:09 History of Present Illness: HPI Narrative: 88-year-old female presents the emergency room from [facility] via EMS. EMS was called out for possible right-sided neurodeficits consider rating consideration of the stroke. Patient is Do Not Recussitate. At the time EMS arrived there was no symptoms present, they had all resolved. When she arrived here in the emergency room all her symptoms had resolved. She follows all commands and her NIH score is 0. Onset (ago): hour(s) Associated symptoms: Deny chest pain, malaise, nausea or vomiting Review of Systems Const: Denies: fever(s), chills, body aches, change in appetite, fatigue or malaise ENMT: Denies: throat pain, ear or mastoid pain, nasal discharge or nasal congestion Card: Denies: chest pain, edema, dyspnea on exertion or orthopnea Resp: Denies: dyspnea, productive cough or non-productive cough GI: Denies: abdominal pain, nausea, vomiting, hematemesis, coffee ground emesis, diarrhea, constipation, bloating, hematochezia or melena : Denies: flank pain, difficulty voiding, dysuria, urinary frequency or urinary urgency Skin/Breast: Denies: rash or pruritus PFSH ED PFSH: Medical History (Updated 01/22/20 @ 13:45 by Ananda Coley DO) Anxiety Atherosclerotic heart disease of ruby coronary artery without angina pectoris Carotid artery stenosis Carotid artery stenosis with cerebral infarction Chronic cystitis Coronary artery disease DJD (degenerative joint disease) Dyslipidemia (high LDL; low HDL) Hypertension Swelling of left lower extremity Surgical History History of vaginal hysterectomy Hx of CABG Hx of cataract surgery Hx of cholecystectomy Family History Other CAD (coronary artery disease) Cancer Family history of premature coronary artery disease Social History Smoking and tobacco status: never smoked Alcohol intake: never Adopted: No Caregiver/support person: No Lives independently: No Household members: family Marital status: / Current occupational status: retired History of recent travel: No Current gender identity: Female NIH stroke score NIHSS: Level Of Consciousness - 1a: 0 Level Of Consciousness Questions - 1b: Both Correct Level Of Consciousness Commands - 1c: Both Correct Best Gaze - 2: Normal Visual Ross - 3: No Visual Loss Facial Palsy - 4: Normal Motor Arm Right - 5: No Drift Motor Arm Left - 5: No Drift Motor Leg Right - 6: No Drift Motor Leg Left - 6: No Drift Limb Ataxia - 7: Absent Sensory - 8: Normal Best Language - 9: No Aphasia Dysarthia - 10: Normal Extinction And Inattention - 11: 0 Score: Total Score: 0 Physical Exam Const: COMMON NORMALS: no acute distress GENERAL APPEARANCE: cooperative and comfortable ORIENTATION/CONSCIOUSNESS: Yes awake, Yes oriented to person, Yes oriented to place and Yes oriented to time HENMT: COMMON NORMALS: normocephalic, atraumatic, hearing grossly normal bilaterally, external ears normal, EAC's normal, TM's normal bilaterally, Normal nasal mucous membranes and turbinates present, moist oral mucous membranes and oropharynx normal HEAD & SCALP: normocephalic and atraumatic NOSE: Normal nasal mucous membranes and turbinates present EXTERNAL EAR: Yes external ears normal EXTERNAL AUDITORY CANAL: EAC's normal TYMPANIC MEMBRANE: TM's normal bilaterally Eye: COMMON NORMALS: Equal, round and reactive pupils present, EOMs intact bilaterally, conjunctivae normal and no scleral icterus CONJUNCTIVA: Yes conjunctivae normal PUPIL: Yes Equal, round and reactive pupils present Neck/C-Spine: COMMON NORMALS: full ROM, no lymphadenopathy, supple and no JVD Lymph: LYMPHATIC: no lymphadenopathy noted and no lymphedema noted Resp: COMMON NORMALS: normal respiratory effort, No retractions, No use of accessory muscles and clear to auscultation bilaterally AUSCULTATION: clear to auscultation bilaterally Cardio: COMMON NORMALS: no JVD, regular rate, regular rhythm and No murmurs present (Cardio) RATE: regular rate RHYTHM: regular rhythm GI: COMMON NORMALS: Soft to palpation and No hepatosplenomegaly present AUSCULTATION: Yes normoactive bowel sounds PALPATION: Yes Soft to palpation, No Tenderness to palpation present (GI), No Guarding due to palpation present (GI) and Yes No hepatosplenomegaly present Extremity: COMMON NORMALS: normal to inspection, capillary refill normal, no clubbing, cyanosis or edema, no calf tenderness and no pedal edema Neuro: SENSORIUM/ORIENTATION: Yes oriented to person, Yes oriented to place and Yes oriented to time Skin: COMMON NORMALS: no rashes or lesions noted GENERAL SKIN EXAM: no rashes or lesions noted Course Vital Signs: Vital signs: Vital Signs Temperature 98.4 F 01/22/20 09:55 Pulse Rate 67 01/22/20 13:55 Respiratory Rate 16 01/22/20 10:47 Blood Pressure 114/57 01/22/20 13:55 Pulse Oximetry 90 01/22/20 13:55 MDM - Neuro Symptoms/Deficit MDM Narrative: Medical decision making narrative: CT head negative she has no neurologic deficits at this time. We will treat a mild bladder infection discharge her back to [facility] follow-up if has any recurrences. Lab Data: Labs: Lab Results 01/22/20 01/22/20 01/22/20 Range/Units 09:39 09:39 12:44 WBC 21.7 H (4.0-10.0) 10^3/ uL RBC 3.87 L (4.1-5.3) 10^6/u L Hgb 12.1 (11.5-15.3) g/dL Hct 37.3 (37.0-47.0) % MCV 96.4 (81-99) fL MCH 31.3 (28.0-34.0) pg MCHC 32.4 (30.0-36.0) g/dL RDW 13.6 (12.1-15.1) % Plt Count 255 (130-400) 10^3/c mm MPV 9.6 (7.4-10.4) fL Neut % (Auto) 89.9 % Lymph % (Auto) 4.4 % [place] % (Auto) 5.0 % Eos % (Auto) 0.0 % Baso % (Auto) 0.2 % Neut # (Auto) 19.6 H (1.8-7.7) 10^3/u L Lymph # (Auto) 1.0 (0.8-4.8) 10^3/u L [place] # (Auto) 1.1 H (0.2-0.9) 10^3/u L Eos # (Auto) 0.0 (0.0-0.8) 10^3/u L Baso # (Auto) 0.0 (0.0-0.1) 10^3/u L Nucleated RBC % (a uto) 0 % Nucleated RBCs # 0.0 /100WBC Sodium 134 L (136-145) mmol/L Potassium 4.0 (3.5-5.1) mmol/L Chloride 94 L (98-107) mmol/L Carbon Dioxide 23 (22-29) mmol/L Anion Gap 22.0 H (5-19) BUN 14 (8-23) mg/dL Creatinine 1.5 H (0.5-0.9) mg/dL Glucose 207 H (65-115) mg/dL Calculated Osmolal ity 280 L (285-295) mOsm/k g Calcium 10.2 (8.5-10.5) mg/dL Total Bilirubin 0.3 (0.15-1.2) mg/dL AST 23 (0-32) U/L ALT 19 (0-33) U/L Alkaline Phosphata se 53 (35-105) IU/L Total Protein 7.6 (6.6-8.7) g/dL Albumin 3.9 (3.5-5.2) g/dL Globulin 3.7 (1.3-4.6) g/dL Urine Color Yellow (Yellow) Urine Appearance Clear (CLEAR) Urine pH 6.5 (5-7) Ur Specific Gravit y 1.015 (1.005-1.030) Urine Protein 3+ H (Negative) Urine Glucose (UA) Norm (Normal) Urine Ketones Negative (Negative) Urine Blood Neg (Negative) Urine Nitrate Negative (Negative) Urine Bilirubin Neg (NEGATIVE) Urine Urobilinogen Norm (Negative) mg/dL Ur Leukocyte Althea ase Negative (Negative) Urine RBC 0-4 H (0-2) /hpf Urine WBC 10-15 H (0-5) /hpf Ur Squamous Epith Cells None (0-5) Urine Bacteria Trace (NONE) Hyaline Casts 5-10 H Urine Mucus 2+ Discharge Plan Discharge Patient Disposition: Home, Self-Care Clinical Impression: Cystitis Condition: Stable Prescriptions: New Macrobid 100 mg capsule 100 mg PO BID 7 Days Qty: 14 RF: 0 No Action amlodipine 10 mg tablet 10 mg PO DAILY RF: 0 nitroglycerin 6.5 mg capsule, extended release 6.5 mg PO BID RF: 0 methenamine hippurate 1 gram tablet 1 gm PO BID RF: 0 ascorbic acid (vitamin C) 500 mg capsule 500 mg PO BID RF: 0 nitroglycerin [Nitrostat] 0.4 mg tablet, sublingual 0.4 mg SUBLINGUAL Q5M PRN (Reason: CHEST PAINS) RF: 0 donepezil [Aricept] 10 mg tablet 10 mg PO BEDTIME RF: 0 memantine [Namenda] 10 mg tablet 10 mg PO BID RF: 0 sertraline [Zoloft] 100 mg tablet 150 mg PO DAILY RF: 0 alprazolam 0.25 mg tablet 0.25 mg PO BID PRN (Reason: Anxiety) RF: 0 multivitamin Tablet 1 tab PO DAILY RF: 0 esomeprazole magnesium [Nexium] 40 mg capsule,delayed release(DR/EC) 20 mg PO DAILY RF: 0 risperidone [Risperdal] 0.5 mg tablet 0.5 mg PO BID RF: 0 magnesium hydroxide [Milk of Magnesia] 400 mg/5 mL suspension 400 mg PO DAILY PRN (Reason: Constipation) RF: 0 bisacodyl 10 mg suppository 10 mg [place] DAILY PRN (Reason: Constipation) RF: 0 acetaminophen [Tylenol] 325 mg Tablet 325 - 650 mg PO QID PRN (Reason: Pain) RF: 0 cyanocobalamin (vitamin B-12) 1,000 mcg/mL Solution 1,000 mcg IM Q30D RF: 0 Fleet Enema 19-7 gram/118 mL Enema 118 ml [place] DAILY PRN (Reason: CONSTIPATED) RF: 0 metoprolol succinate 25 mg tablet extended release 24 hr 12.5 mg PO DAILY Qty: 15 RF: 0 hydralazine 10 mg tablet 10 mg PO BID Qty: 60 RF: 0 albuterol sulfate 2.5 mg /3 mL (0.083 %) Solution For Nebulization 2.5 mg INHALATION QID PRN (Reason: Shortness Of Breath) RF: 0 Symbicort 160-4.5 mcg/actuation Hfa Aerosol Inhaler 2 puff INHALATION BID RF: 0 Discharge Orders: Discharge Order (Routine); Ordered 01/22/20 Ordered By: Ananda Coley Referrals: Sanjay Rosenberg MD [Primary Care Provider] - Discharge Diet: Usual diet Discharge Activity: Resume usual activity Discharge Date/Time: 01/22/20 14:10 Coding Level of Care Code ED Copy Center Associate for Chg Fwd Exam Comprehensive
[2020-01-22 10:39] LABS: Basophils % 0.2 %; Hematocrit 37.3 % (37.0-47.0); Hemoglobin 12.1 g/dL (11.5-15.3); Lymphocytes % 4.4 %; Mean Corpuscular HGB Conc 32.4 g/dL (30.0-36.0); Mean Corpuscular Hemoglobin 31.3 pg (28.0-34.0); Mean Corpuscular Volume 96.4 fL (81-99); Mean Platelet Volume 9.6 fL (7.4-10.4); Monocytes # 1.1 10^3/uL (0.2-0.9); Neutrophils # 19.6 10^3/uL (1.8-7.7); Neutrophils % 89.9 %; Nucleated Red Blood Cells % 0 %; Platelet Count 255 10^3/cmm (130-400); Red Blood Count 3.87 10^6/uL (4.1-5.3); Red Cell Distribution Width 13.6 % (12.1-15.1); White Blood Count 21.7 10^3/uL (4.0-10.0)
[2020-01-22 10:47] VITALS: BP 131/67; PULSE 71; RESP 16; O2SAT 93
--- NOTE | 2020-01-22 10:48 | PC.NURSE ---
pt oxygen saturation 87-88% on room air. Pt placed on 2L supplemental oxygen per nasal cannula.
[2020-01-22 10:50] LABS: Albumin Level 3.9 g/dL (3.5-5.2); Alkaline Phosphatase 53 IU/L (35-105); Blood Urea Nitrogen 14 mg/dL (8-23); Calcium 10.2 mg/dL (8.5-10.5); Carbon Dioxide 23 mmol/L (22-29); Chloride 94 mmol/L (98-107); Globulin 3.7 g/dL (1.3-4.6); Glucose 207 mg/dL (65-115); Osmolality Calculated 280 mOsm/kg (285-295); Sodium 134 mmol/L (136-145); Total Bilirubin 0.3 mg/dL (0.15-1.2); Total Protein 7.6 g/dL (6.6-8.7)
[2020-01-22 11:55] LABS: Alanine Aminotransferase 19 U/L (0-33); Aspartate Amino Transferase 23 U/L (0-32)
[2020-01-22 12:44] VITALS: BP 106/61; PULSE 72; O2SAT 95
[2020-01-22 13:19] LABS: Protein Urine 3+ (Negative); Specific Gravity, Urine 1.015 (1.005-1.030); Urine Appearance Clear (CLEAR); Urine Color Yellow (Yellow); pH Urine 6.5 (5-7)
[2020-01-22 13:20] LABS: Add Urine Microscopic? YES; Bilirubin Urine Neg (NEGATIVE); Blood Urine Neg (Negative); Glucose Urine UA Norm (Normal); Ketones Urine Negative (Negative); Leukocyte Esterase Urine Negative (Negative); Nitrate Urine Negative (Negative); Urobilinogen Urine Norm (Negative)
[2020-01-22 13:21] LABS: Bacteria Urine TRACE; Mucus Urine 2+; RBC Urine 0-4 /hpf (0-2)
[2020-01-22 13:22] LABS: Add Urine Culture? No
[2020-01-22 13:55] VITALS: BP 114/57; PULSE 67; O2SAT 90
== END 2020-01-22 14:10 | disposition home or self-care (01) ==
PROVIDERS: Emergency Provider Family Medicine; Family Provider Family Medicine; PCP Family Medicine
DX: N30.90 Cystitis, unspecified without hematuria (principal); I25.10 Atherosclerotic heart disease of native coronary artery without angina pectoris; Z87.440 Personal history of urinary (tract) infections; E78.5 Hyperlipidemia, unspecified; I10 Essential (primary) hypertension; Z95.1 Presence of aortocoronary bypass graft
CPT/HCPCS: 12345; 36415; 70450; 71045; 80053; 81001; 85025; 87040; 87205; 93005; 99283; 99284

== ENCOUNTER 2020-03-09 12:38 | Inpatient (IN) | payer MEDICARE, OTHER, MEDICAID, SELFPAY ==
--- NOTE | 2020-03-09 | CTR_ITS ---
PROCEDURE INFORMATION: Exam: CT Head Without Contrast Exam date and time: 03/09/2020 12:47 PM Age: 84 years old Clinical indication: Injury or trauma; Patient HX: Fall this a.m. Lethargic. ; Additional info: Fall / loss of fine motor skills TECHNIQUE: Imaging protocol: Computed tomography of the head without contrast. Radiation optimization: All CT scans at this facility use at least one of these dose optimization techniques: automated exposure control; mA and/or kV adjustment per patient size (includes targeted exams where dose is matched to clinical indication); or iterative reconstruction. COMPARISON: CT head wo con* [id number] 01/22/2020 9:53 AM RADIATION DOSE METRICS: Total DLP (mGy-cm): 734.51 FINDINGS: Brain: Moderate hypoattenuating foci are noted in the central cerebral, posterior superior periatrial and anterior lateral ventricular periventricular white matter bilaterally. No intracranial hemorrhage. No mass or acute cortical infarction identified. Ventricles: Prominence of the ventricular system and subarachnoid spaces is consistent with the patient's age of 84 years. Bones/joints: Bilateral parietal bone thinning, normal variant. Sinuses: Visualized sinuses are unremarkable. No fluid levels. Mastoid air cells: Visualized mastoid air cells are well aerated. Orbits: Bilateral prior cataract surgery. Vasculature: Atherosclerotic calcifications are present involving the carotid artery siphons and vertebral arteries bilaterally. Soft tissues: Unremarkable. CT/CT head wo con* [id number] IMPRESSION: 1. Age appropriate supratentorial and infratentorial atrophy. 2. Moderate chronic white matter microvascular ischemic disease. 3. No acute intracranial abnormality/injury identified. Radiation Dose CTDIVOL = (mGy): DLP = 734.51 (mGy-cm)
[2020-03-09 12:57] VITALS: BMI 19.3
[2020-03-09 13:01] VITALS: BP 175/83; PULSE 73; RESP 16; TEMP 36.9; O2SAT 91
--- NOTE | 2020-03-09 13:02 | XRR_ITS ---
PROCEDURE INFORMATION: Exam: XR Chest, 1 View Exam date and time: 03/09/2020 1:19 PM Age: 84 years old Clinical indication: Other: Fall, loss of fine motor skills; Prior surgery; Surgery date: 6+ months; Surgery type: Open heart; Patient HX: Fall, weak. Loss of coordination TECHNIQUE: Imaging protocol: XR of the chest Views: Frontal portable view of the chest. COMPARISON: CR XR chest 1V portable [id number] 01/22/2020 10:39 AM FINDINGS: Lungs: The pulmonary vasculature is stable. Improved lung volumes. Improved right basilar aeration. New patchy infiltrate lateral right upper lobe anterior segment. Bilateral pulmonary infiltrates are otherwise stable. Pleural space: No definite pleural effusion. No pneumothorax. Heart/Mediastinum: Mediastinum: Stable. Vasculature: Moderate aortic arch atherosclerotic calcification without ectasia. Diaphragm: The right hemidiaphragm remains moderately elevated. Bones/joints: The patient is status post median sternotomy with intact sternal cerclage wires. XR/XR chest 1V portable [id number] IMPRESSION: 1. Improved lung volumes. 2. Improved right basilar aeration. 3. New patchy infiltrate lateral right upper lobe anterior segment. Pneumonitis is difficult to exclude. Clinical correlation is recommended. 4. Bilateral pulmonary infiltrates are otherwise stable.
--- NOTE | 2020-03-09 13:05 | W.ED.FALL ---
HPI - Fall General: Chief Complaint: Fall Stated Complaint: FALL, LOSS OF FINE MOTOR SKILLS Time Seen by Provider: 03/09/20 13:01 Source: patient, family, EMS and RN notes reviewed History of Present Illness: HPI Narrative: 84-year-old female accompanied by her daughter, resides at [facility]. Last normal was last night. This morning staff found her face forward in her room and suspect that she fell monitored for a while. She has an abrasion to her nose and was initially acting normal but then was unable to dress herself. She does have Alzheimer's dementia but is usually mobile without cane walker or wheelchair and performs activities of daily living on her own. Patient is not on supplemental oxygen and while daughter tells me that her answers to my questions are unreliable, patient tells me that she does not have any respiratory symptoms or pain. She does tell me that she has to urinate frequently. Daughter also tells me that she was notified yesterday there is a COVID positive patient and all the alf patients began to be tested but she is not sure if her mother was already tested and she does not know if this is a patient or an employee there. complaint: fall Associated symptoms-after fall: Denies abdominal pain, chest pain or headache(s) Review of Systems General: Reports: 10 or more systems reviewed and unremarkable except in HPI and below Const: Denies: fever(s) or chills Eyes: Denies: change in vision ENMT: Denies: throat pain Card: Denies: chest pain Resp: Denies: dyspnea GI: Denies: abdominal pain, nausea, vomiting or change in bowel habits : Reports: urinary frequency Musc: Denies: muscle weakness Skin/Breast: Denies: rash Neuro: Denies: headache(s) Psych: Denies: hopelessness or suicidal ideation Endo: Denies: polyuria Kyle/Lymph: Denies: easy bruising or easy bleeding All/Imm: Denies: urticaria PFSH ED PFSH: Medical History (Updated 03/09/20 @ 16:12 by Wili Madrid MD) Anxiety Atherosclerotic heart disease of [place] coronary artery without angina pectoris Carotid artery stenosis Carotid artery stenosis with cerebral infarction Chronic cystitis Coronary artery disease DJD (degenerative joint disease) Dyslipidemia (high LDL; low HDL) Hypertension Swelling of left lower extremity Surgical History History of vaginal hysterectomy Hx of CABG Hx of cataract surgery Hx of cholecystectomy Family History Other CAD (coronary artery disease) Cancer Family history of premature coronary artery disease Social History Smoking and tobacco status: never smoked Alcohol intake: never Adopted: No Caregiver/support person: No Lives independently: No Household members: family Marital status: / Current occupational status: retired History of recent travel: No Current gender identity: Female Physical Exam Const: COMMON NORMALS: no acute distress, patient oriented x3, alert and well nourished HENMT: COMMON NORMALS: normocephalic and Normal external nose present HEAD & SCALP: normocephalic NOSE: Normal external nose present MOUTH: no trismus Eye: COMMON NORMALS: EOMs intact bilaterally and conjunctivae normal CONJUNCTIVA: Yes conjunctivae normal Neck/C-Spine: COMMON NORMALS: full ROM, no lymphadenopathy and supple CERVICAL SPINE: Yes cervical ROM normal Lymph: LYMPHATIC: no lymphadenopathy noted Resp: COMMON NORMALS: normal respiratory effort, No retractions and No use of accessory muscles EFFORT & INSPECTION: Yes able to speak in complete sentences AUSCULTATION: crackles Cardio: COMMON NORMALS: regular rate and regular rhythm RATE: regular rate RHYTHM: regular rhythm GI: COMMON NORMALS: Normal to inspection, nondistended, normoactive bowel sounds present, Soft to palpation, non-tender and no masses INSPECTION: Yes normal to inspection AUSCULTATION: Yes normoactive bowel sounds PALPATION: Yes Soft to palpation, No Guarding due to palpation present (GI) and No Rigid due to palpation Back/Pelvis: OTHER: Normal range of motion Extremity: GENERAL: Yes normal exam except as noted Neuro: COMMON NORMALS: patient oriented x3 and CN's II-XII intact bilaterally SENSORIUM/ORIENTATION: Yes alert SPEECH: speech normal MOTOR EXAM: 5/5 motor strength present throughout, Pronator motor function not present, Normal motor muscle tone present throughout and No Pronator motor function present Psych: COMMON NORMALS: mental status grossly normal Skin: COMMON NORMALS: no rashes or lesions noted GENERAL SKIN EXAM: no rashes or lesions noted Course Vital Signs: Vital signs: Vital Signs Temperature 98.4 F 03/09/20 13:01 Pulse Rate 73 03/09/20 13:01 Respiratory Rate 16 03/09/20 13:01 Blood Pressure 175/83 03/09/20 13:01 Pulse Oximetry 91 03/09/20 13:01 MDM - Fall MDM Narrative: Medical decision making narrative: 84-year-old female from [facility] with hypoxia sat 86 to 87% when I get up to try to walk her. She is not usually on supplemental oxygen. The other issue that warrants admission is that she is not able to stand up on her own and even with 2 people clearly is unsteady on her feet. She does not usually use a cane or walker and is able to do activities of daily living on her own until she fell forward on her face this morning. I discussed with the hospitalist. She does have a COVID test pending from [facility] where they had a positive case and tested other patients yesterday this is not back yet. Hospitalist requested a d-dimer, CT chest without contrast and full admission * Lab Data: Labs: Lab Results 03/09/20 03/09/20 03/09/20 Range/Units 13:30 13:34 13:34 WBC 7.7 (4.0-10.0) 10^3/ uL RBC 3.95 L (4.1-5.3) 10^6/u L Hgb 12.2 (11.5-15.3) g/dL Hct 38.7 (37.0-47.0) % MCV 98.0 (81-99) fL MCH 30.9 (28.0-34.0) pg MCHC 31.5 (30.0-36.0) g/dL RDW 13.6 (12.1-15.1) % Plt Count 193 (130-400) 10^3/c mm MPV 9.7 (7.4-10.4) fL Neut % (Auto) 60.3 % Lymph % (Auto) 26.5 % Hart % (Auto) 10.2 % Eos % (Auto) 2.1 % Baso % (Auto) 0.5 % Neut # (Auto) 4.6 (1.8-7.7) 10^3/u L Lymph # (Auto) 2.0 (0.8-4.8) 10^3/u L Hart # (Auto) 0.8 (0.2-0.9) 10^3/u L Eos # (Auto) 0.2 (0.0-0.8) 10^3/u L Baso # (Auto) 0.0 (0.0-0.1) 10^3/u L Nucleated RBC % (a uto) 0 % Nucleated RBCs # 0.0 /100WBC PT 13.20 (10.5-13.3) SECO NDS INR 0.97 (0.8-1.2) D-Dimer (0-0.59) ug/mIFE U Sodium (136-145) mmol/L Potassium (3.5-5.1) mmol/L Chloride (98-107) mmol/L Carbon Dioxide (22-29) mmol/L Anion Gap (5-19) BUN (8-23) mg/dL Creatinine (0.5-0.9) mg/dL Glucose (65-115) mg/dL Calculated Osmolal ity (285-295) mOsm/k g Calcium (8.5-10.5) mg/dL Total Bilirubin (0.15-1.2) mg/dL AST (0-32) U/L ALT (0-33) U/L Alkaline Phosphata se (35-105) IU/L NT-Pro-B Natriuret Pep (0-450) pg/mL Total Protein (6.6-8.7) g/dL Albumin (3.5-5.2) g/dL Globulin (1.3-4.6) g/dL Urine Color Yellow (Yellow) Urine Appearance Clear (CLEAR) Urine pH 6 (5-7) Ur Specific Gravit y 1.015 (1.005-1.030) Urine Protein 2+ H (Negative) Urine Glucose (UA) Norm (Normal) Urine Ketones Negative (Negative) Urine Blood Neg (Negative) Urine Nitrate Negative (Negative) Urine Bilirubin Neg (NEGATIVE) Urine Urobilinogen Neg (Negative) mg/dL Ur Leukocyte Althea ase Negative (Negative) Urine RBC None (0-2) /hpf Urine WBC None (0-5) /hpf Ur Squamous Epith Cells 0-4 H (0-5) Ur Renal Epithelia l Cell 0-4 /hpf Amorphous Sediment Not Reportable Urine Bacteria Trace (NONE) 03/09/20 03/09/20 03/09/20 Range/Units 13:34 13:34 13:34 WBC (4.0-10.0) 10^3/ uL RBC (4.1-5.3) 10^6/u L Hgb (11.5-15.3) g/dL Hct (37.0-47.0) % MCV (81-99) fL MCH (28.0-34.0) pg MCHC (30.0-36.0) g/dL RDW (12.1-15.1) % Plt Count (130-400) 10^3/c mm MPV (7.4-10.4) fL Neut % (Auto) % Lymph % (Auto) % Hart % (Auto) % Eos % (Auto) % Baso % (Auto) % Neut # (Auto) (1.8-7.7) 10^3/u L Lymph # (Auto) (0.8-4.8) 10^3/u L Hart # (Auto) (0.2-0.9) 10^3/u L Eos # (Auto) (0.0-0.8) 10^3/u L Baso # (Auto) (0.0-0.1) 10^3/u L Nucleated RBC % (a uto) % Nucleated RBCs # /100WBC PT (10.5-13.3) SECO NDS INR (0.8-1.2) D-Dimer 0.99 H (0-0.59) ug/mIFE U Sodium 136 (136-145) mmol/L Potassium 4.2 (3.5-5.1) mmol/L Chloride 98 (98-107) mmol/L Carbon Dioxide 26 (22-29) mmol/L Anion Gap 16.2 (5-19) BUN 19 (8-23) mg/dL Creatinine 1.3 H (0.5-0.9) mg/dL Glucose 99 (65-115) mg/dL Calculated Osmolal ity 279 L (285-295) mOsm/k g Calcium 9.6 (8.5-10.5) mg/dL Total Bilirubin 0.4 (0.15-1.2) mg/dL AST 17 (0-32) U/L ALT 11 (0-33) U/L Alkaline Phosphata se 63 (35-105) IU/L NT-Pro-B Natriuret Pep 775 H (0-450) pg/mL Total Protein 7.1 (6.6-8.7) g/dL Albumin 3.8 (3.5-5.2) g/dL Globulin 3.3 (1.3-4.6) g/dL Urine Color (Yellow) Urine Appearance (CLEAR) Urine pH (5-7) Ur Specific Gravit y (1.005-1.030) Urine Protein (Negative) Urine Glucose (UA) (Normal) Urine Ketones (Negative) Urine Blood (Negative) Urine Nitrate (Negative) Urine Bilirubin (NEGATIVE) Urine Urobilinogen (Negative) mg/dL Ur Leukocyte Althea ase (Negative) Urine RBC (0-2) /hpf Urine WBC (0-5) /hpf Ur Squamous Epith Cells (0-5) Ur Renal Epithelia l Cell /hpf Amorphous Sediment Urine Bacteria (NONE) Imaging Data^: CT Head: Radiologist's impression: [address] [address] [address] Scan Report Signed Patient: Bhargavi Flower Unit #: [id number] : 1935 Age/Sex: 84 / F ADM Date: 03/09/20 Loc: ER Room/Bed: Attending Dr: Ordering Provider/Ordering MD: Ananda Coley DO Date of Service: 03/09/20 Procedure(s): CT head wo con* [id number] Accession Number(s): [id number] Report Number: [id number] PROCEDURE INFORMATION: Exam: CT Head Without Contrast Exam date and time: 03/09/2020 12:47 PM Age: 84 years old Clinical indication: Injury or trauma; Patient HX: Fall this a.m. Lethargic. ; Additional info: Fall / loss of fine motor skills TECHNIQUE: Imaging protocol: Computed tomography of the head without contrast. Radiation optimization: All CT scans at this facility use at least one of these dose optimization techniques: automated exposure control; mA and/or kV adjustment per patient size (includes targeted exams where dose is matched to clinical indication); or iterative reconstruction. COMPARISON: CT head wo con* [id number] 01/22/2020 9:53 AM RADIATION DOSE METRICS: Total DLP (mGy-cm): 734.51 FINDINGS: Brain: Moderate hypoattenuating foci are noted in the central cerebral, posterior superior periatrial and anterior lateral ventricular periventricular white matter bilaterally. No intracranial hemorrhage. No mass or acute cortical infarction identified. Ventricles: Prominence of the ventricular system and subarachnoid spaces is consistent with the patient's age of 84 years. Bones/joints: Bilateral parietal bone thinning, normal variant. Sinuses: Visualized sinuses are unremarkable. No fluid levels. Mastoid air cells: Visualized mastoid air cells are well aerated. Orbits: Bilateral prior cataract surgery. Vasculature: Atherosclerotic calcifications are present involving the carotid artery siphons and vertebral arteries bilaterally. Soft tissues: Unremarkable. CT/CT head wo con* [id number] IMPRESSION: 1. Age appropriate supratentorial and infratentorial atrophy. 2. Moderate chronic white matter microvascular ischemic disease. 3. No acute intracranial abnormality/injury identified. Radiation Dose CTDIVOL = (mGy): DLP = 734.51 (mGy-cm) CXR: Radiologist's impression: Accession Number(s): [id number] Report Number: [id number] ADDENDUM XR/XR chest 1V portable [id number] ADDENDUM: No acute injury identified. Addendum Dictated By: Rafiq Baeza MD Addendum Signed By: Rafiq Baeza MDSigned Date/Time:03/09/20 1340 Addendum Cosigned By: PROCEDURE INFORMATION: Exam: XR Chest, 1 View Exam date and time: 03/09/2020 1:19 PM Age: 84 years old Clinical indication: Other: Fall, loss of fine motor skills; Prior surgery; Surgery date: 6+ months; Surgery type: Open heart; Patient HX: Fall, weak. Loss of coordination TECHNIQUE: Imaging protocol: XR of the chest Views: Frontal portable view of the chest. COMPARISON: CR XR chest 1V portable [id number] 01/22/2020 10:39 AM FINDINGS: Lungs: The pulmonary vasculature is stable. Improved lung volumes. Improved right basilar aeration. New patchy infiltrate lateral right upper lobe anterior segment. Bilateral pulmonary infiltrates are otherwise stable. Pleural space: No definite pleural effusion. No pneumothorax. Heart/Mediastinum: Mediastinum: Stable. Vasculature: Moderate aortic arch atherosclerotic calcification without ectasia. Diaphragm: The right hemidiaphragm remains moderately elevated. Bones/joints: The patient is status post median sternotomy with intact sternal cerclage wires. XR/XR chest 1V portable [id number] IMPRESSION: 1. Improved lung volumes. 2. Improved right basilar aeration. 3. New patchy infiltrate lateral right upper lobe anterior segment. Pneumonitis is difficult to exclude. Clinical correlation is recommended. 4. Bilateral pulmonary infiltrates are otherwise stable. Dictated By:Rafiq Baeza MD Signed By:Rafiq Baeza MDSigned Date/Time:03/09/20 1339 Discharge Plan Discharge Admit Provider: Wili Madrid Coding Level of Care Code ED Latin Dancer for Chg Fwd Exam Comprehensive
[2020-03-09 13:45] LABS: Basophils % 0.5 %; Eosinophils # 0.2 10^3/uL (0.0-0.8); Eosinophils % 2.1 %; Hematocrit 38.7 % (37.0-47.0); Hemoglobin 12.2 g/dL (11.5-15.3); Lymphocytes % 26.5 %; Mean Corpuscular HGB Conc 31.5 g/dL (30.0-36.0); Mean Corpuscular Hemoglobin 30.9 pg (28.0-34.0); Mean Platelet Volume 9.7 fL (7.4-10.4); Monocytes # 0.8 10^3/uL (0.2-0.9); Monocytes % 10.2 %; Neutrophils # 4.6 10^3/uL (1.8-7.7); Neutrophils % 60.3 %; Nucleated Red Blood Cells % 0 %; Platelet Count 193 10^3/cmm (130-400); Red Blood Count 3.95 10^6/uL (4.1-5.3); Red Cell Distribution Width 13.6 % (12.1-15.1); White Blood Count 7.7 10^3/uL (4.0-10.0)
[2020-03-09 13:53] LABS: INR 0.97 (0.8-1.2)
[2020-03-09 13:56] LABS: Add Urine Microscopic? YES; Bilirubin Urine Neg (NEGATIVE); Blood Urine Neg (Negative); Glucose Urine UA Norm (Normal); Ketones Urine Negative (Negative); Leukocyte Esterase Urine Negative (Negative); Nitrate Urine Negative (Negative); Protein Urine 2+ (Negative); Specific Gravity, Urine 1.015 (1.005-1.030); Urine Appearance Clear (CLEAR); Urine Color Yellow (Yellow); Urobilinogen Urine Neg (Negative); pH Urine 6 (5-7)
[2020-03-09 13:59] LABS: Alanine Aminotransferase 11 U/L (0-33); Albumin Level 3.8 g/dL (3.5-5.2); Alkaline Phosphatase 63 IU/L (35-105); Anion Gap 16.2 (5-19); Aspartate Amino Transferase 17 U/L (0-32); Blood Urea Nitrogen 19 mg/dL (8-23); Calcium 9.6 mg/dL (8.5-10.5); Carbon Dioxide 26 mmol/L (22-29); Chloride 98 mmol/L (98-107); Globulin 3.3 g/dL (1.3-4.6); Glucose 99 mg/dL (65-115); Osmolality Calculated 279 mOsm/kg (285-295); Potassium 4.2 mmol/L (3.5-5.1); Sodium 136 mmol/L (136-145); Total Bilirubin 0.4 mg/dL (0.15-1.2); Total Protein 7.1 g/dL (6.6-8.7)
[2020-03-09 14:12] LABS: Squamous Epithelial Cell Urine 0-4 (0-5)
[2020-03-09 14:13] LABS: Add Urine Culture? No; Bacteria Urine TRACE; Renal Epithelial Cells Urine 0-4 /hpf
[2020-03-09 14:55] LABS: NT Pro B Type Natriuretic Pept 775 pg/mL (0-450)
--- NOTE | 2020-03-09 15:36 | CTR_ITS ---
PROCEDURE INFORMATION: Exam: CT Chest Without Contrast Exam date and time: 03/09/2020 4:20 PM Age: 84 years old Clinical indication: Shortness of breath; Prior surgery; Surgery type: Open heart; Additional info: SOA TECHNIQUE: Imaging protocol: Computed tomography of the chest without contrast. Radiation optimization: All CT scans at this facility use at least one of these dose optimization techniques: automated exposure control; mA and/or kV adjustment per patient size (includes targeted exams where dose is matched to clinical indication); or iterative reconstruction. COMPARISON: CR XR chest 1V portable [id number] 03/09/2020 1:02 PM RADIATION DOSE METRICS: Total DLP (mGy-cm): 318.94 FINDINGS: Lungs: Scattered peripheral interstitial fibrosis with some associated honeycombing in the right lung. Subtle scattered ground-glass opacities in the right lower lobe. No focal consolidation. Pleural space: Unremarkable. No pneumothorax. No pleural effusion. Heart: Coronary artery calcifications. The heart size is normal. Mediastinal space: Large hiatal hernia. Aorta: Unremarkable. No aortic aneurysm. Lymph nodes: Subcentimeter mediastinal lymph nodes are most likely reactive. Gallbladder and bile ducts: Cholecystectomy. Bones/joints: Median sternotomy changes. Severe T10 compression fracture. Soft tissues: Unremarkable. Other findings: Elevation of the right diaphragm. CT/CT chest [facility] [id number] IMPRESSION: 1. 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 This can be seen with idiopathic pulmonary fibrosis, collagen vascular disease, chronic drug reaction, or end-stage hypersensitivity pneumonitis. 2. Subtle ground-glass opacities in the right lower lobe could be related to the interstitial fibrosis process. Superimposed mild pneumonia however is not excluded. 3. Severe T10 compression fracture, most likely chronic. Radiation Dose CTDIVOL = (mGy): DLP = 318.94 (mGy-cm)
--- NOTE | 2020-03-09 16:02 | USCV_ITS ---
Bhargavi Flower Age: 84 Gender: F : 1935 Exam Date: 03/09/2020 16:18 Ordering Phys: Wili Madrid MD Technologist: RANDI GALEANO [place]am [place] [facility] [place] Indication: R/O DVT PROCEDURES: Venous duplex imaging was performed in bilateral lower extremities. The following venous structures were evaluated: common femoral vein, profunda vein, proximal portion of the greater saphenous vein, superficial femoral vein, and the popliteal vein. In addition, the posterior tibial and peroneal trunk were evaluated. Serial compression, augmentation maneuvers, and spectral Doppler flow evaluation were performed. FINDINGS: Normal 2-D Doppler and augmentation and compressibility throughout the lower extremity venous structures. Additional imaging through the proximal calf veins also reveals no thrombus. Limited evaluation of the greater saphenous vein is patent with no thrombus.. Area located medial to the right popliteal appears to be a bakers cyst. No blood flow within. CONCLUSIONS No evidence of right lower extremity DVT. No evidence of left lower extremity DVT. Right popliteal cyst 4.3 x 1.3 x 2.8cm Trip Parisi MD (Electronically Signed) Final Date: 10 March 2020 15:55 S
--- NOTE | 2020-03-09 16:06 | PM.HP ---
Providers/Chief Complaint Primary Care Provider: Sanjay Rosenberg MD Chief Complaint: FALL, LOSS OF FINE MOTOR SKILLS History of Present Illness Bhargavi Flower is a 84 year old female with chronic Alzheimer's dementia, past CVA, HTN, HLD, CAD, residing in [facility] dementia unit, COPD, falls in the past came to the ER today after she was seen facedown on the floor at the long term today morning. Most of the history taken through the nurse at [facility] via phone. As per the nurse patient has been little more confused for last couple of days more than her baseline and today morning while evaluation she was found facedown in her room. They did not notice any seizure-like activity, bowel or bladder accidents near area fall. On evaluation as per the nurse after getting her up in chair they thought patient has been having drooping of her left eyelid along with facial deformity to the left side of her face. Because of this reason patient was sent over to the ER. In the ER patient did not have any facial deformity but was saturating 87% on room air needing 1 L nasal cannula oxygen supplementation for saturation to be maintained over 91%. As per the nurse at the long term patient has not been having any fevers, difficulty in breathing, cough, expectoration, dysuria, diarrhea and her appetite has been at baseline as well. Blood work in the ER showed a normal white count of 7.7, , Hemoglobin of 12.2,no left shift, sodium of 136, potassium of 4.2, creatinine of 1.3, proBNP of 679, chest x-ray concerning for new patchy infiltrate lateral right upper lobe anterior segment for which pneumonitis could not be excluded, bilateral pulmonary infiltrates otherwise which have been stable from before. Of note, every resident and employee at [facility] is been tested for COVID-19 because of potential exposure and patient's COVID-19 was sent out to test on Saturday but no results are back yet Review of Systems General: Reports: ROS unobtainable due to medical condition and ROS unobtainable due to mental status Medications/Allergies Home Medications Medication Instructions Recorded Confirmed Last Taken Type alprazolam 0.25 mg tablet 0.25 mg PO BID PRN 10/21/19 03/09/20 03/09/20 History amlodipine 10 mg tablet 10 mg PO DAILY 10/21/19 03/09/20 03/09/20 History ascorbic acid (vitamin C) 500 mg 500 mg PO BID cap 10/21/19 03/09/20 03/09/20 History capsule bisacodyl 10 mg rectal suppository 10 mg HI DAILY PRN 10/21/19 03/09/20 Unknown History donepezil 10 mg tablet 10 mg PO BEDTIME 10/21/19 03/09/20 03/08/20 History magnesium hydroxide 400 mg/5 mL 400 mg PO DAILY PRN 10/21/19 03/09/20 Unknown History oral suspension memantine 10 mg tablet 10 mg PO BID tab 10/21/19 03/09/20 03/09/20 History methenamine hippurate 1 gram tablet 1 gm PO BID 10/21/19 03/09/20 03/09/20 History multivitamin 1 tab PO DAILY 10/21/19 03/09/20 03/09/20 History nitroglycerin 0.4 mg sublingual 0.4 mg SUBLINGUAL Q5M PRN 10/21/19 03/09/20 Unknown History tablet risperidone 0.5 mg tablet 0.5 mg PO BID 10/21/19 03/09/20 03/09/20 History sertraline 100 mg tablet 150 mg PO DAILY tab 10/21/19 03/09/20 03/09/20 History Fleet Enema 118 ml HI DAILY PRN 12/15/19 03/09/20 Unknown History acetaminophen [Tylenol] 325 - 650 mg PO QID PRN 12/15/19 03/09/20 Unknown History cyanocobalamin (vitamin B-12) 1,000 mcg IM Q30D 12/15/19 03/09/20 Unknown History hydralazine 10 mg PO BID #60 tab 12/16/19 03/09/20 03/09/20 Rx metoprolol succinate 12.5 mg PO DAILY #15 tab 12/16/19 03/09/20 03/09/20 Rx albuterol sulfate 2.5 mg INHALATION QID PRN 01/22/20 03/09/20 Unknown History budesonide-formoterol [Symbicort] 2 puff INHALATION BID 01/22/20 03/09/20 03/09/20 History Lactobacillus rhamnosus GG 1 cap PO DAILY 03/09/20 03/09/20 03/09/20 History [Culturelle] isosorbide dinitrate 20 mg PO BID 03/09/20 03/09/20 03/09/20 History omeprazole 40 mg PO DAILY 03/09/20 03/09/20 03/09/20 History Allergies Allergy/AdvReac Type Severity Reaction Status Date / Time aspirin Allergy Unknown unknown Verified 03/09/20 13:03 codeine Allergy Unknown unknown Verified 03/09/20 13:03 erythromycin base Allergy Unknown unknown Verified 03/09/20 13:03 [From T-Stat] ethyl alcohol [From T-Stat] Allergy Unknown unknown Verified 03/09/20 13:03 meperidine [From Demerol] Allergy Unknown unknown Verified 03/09/20 13:03 [id number]-[id number] Reductase Allergy Unknown unknown Verified 03/09/20 13:03 Inhibitor isosorbide [From Imdur] AdvReac Unknown headache Verified 03/09/20 13:03 PFSH Acute PFSH: Medical History (Updated 03/09/20 @ 18:11 by Wili Madrid MD) Anxiety Atherosclerotic heart disease of [place] coronary artery without angina pectoris Carotid artery stenosis Carotid artery stenosis with cerebral infarction Chronic cystitis Coronary artery disease DJD (degenerative joint disease) Dyslipidemia (high LDL; low HDL) Hypertension Swelling of left lower extremity Surgical History History of vaginal hysterectomy Hx of CABG Hx of cataract surgery Hx of cholecystectomy Family History Other CAD (coronary artery disease) Cancer Family history of premature coronary artery disease Social History Smoking and tobacco status: never smoked Alcohol intake: never Adopted: No Caregiver/support person: No Lives independently: No Household members: family Marital status: / Current occupational status: retired History of recent travel: No Current gender identity: Female Vitals/I&O/Wt Last Vital Signs Temp 98.4 F 03/09/20 13:01 Pulse 73 03/09/20 13:01 Resp 16 03/09/20 13:01 BP 175/83 03/09/20 13:01 Pulse Ox 91 03/09/20 13:01 Weight last 48 hrs Weight 52.617 kg Physical Exam Narrative: EXAM NARRATIVE: General: No acute distress, AO x 1-2, on nasal cannula 1 L saturating 92% HEENT: PERRLA, pupils bilaterally equal and reactive Chest: Bilateral bronchial breath sounds, occasional rhonchi present in the right lung more on the anterior side and posterior, more on upper lobe and lower zone CVS: S1-S2 regular, no murmurs, no tachycardia, no gallops, no rubs Abdomen: Soft, nontender, no organomegaly, bowel sounds present Neuro: No focal deficits, no facial deformity, AO x3, power 3/5 in all limbs Data : 03/09/20 13:34 03/09/20 13:34 A&P Assessment and plan (1) Pneumonitis: Status: Acute (2) Hypoxia: Status: Acute (3) Fall: Status: Acute (4) Carotid artery stenosis with cerebral infarction: Status: Acute (5) Dementia: Status: Acute (6) Atherosclerotic heart disease of [place] coronary artery without angina pectoris: Status: Acute Qualifiers: [place] vs. transplanted heart: [place] heart Qualified Code(s): I25.10 - Atherosclerotic heart disease of [place] coronary artery without angina pectoris (7) Hypertension: Status: Acute Qualifiers: Hypertension type: essential hypertension Qualified Code(s): I10 - Essential (primary) hypertension (8) Dyslipidemia (high LDL; low HDL): Status: Acute Additional A&P Information 84-year-old female with past medical history of CVA, hypertension, COPD, CAD who lives at [facility] dementia unit presented because of a fall. Fall: Unwitnessed fall. As per the nursing at [facility] there is a concern of a possible droopiness of the face. On review of chart patient was admitted with similar complaint in December 2019 at that time was found to have moderate plaques bilateral. He has a history of intolerance to aspirin and statin. At that time family had decided not going for any further investigation and making sure the patient is comfortable given her poor baseline functionality. This has been confirmed again by daughter at bedside. CT head on admission negative for any bleed. Check urine drug screen. Fall could be because of hypoxia. Patient saturating in high 80s on room air in ER. Checks x-ray suggestive of pneumonitis. Hypoxia: Most likely because of pneumonitis. Given her hypoxia, borderline tachycardia cannot rule out PE. Check d-dimer, ABG to rule out hypoxia and hypercapnia, lower limb Dopplers. Unfortunately cannot do CTA chest due to elevated creatinine. Pneumonitis: Check CT chest without contrast. Check sputum culture and Gram stain, Legionella, will check COVID-19 again as results would come faster, ESR, CRP, procalcitonin, LDH, blood cultures. For now we will start patient on azithromycin and Zosyn to cover for atypical and possible community acquired pneumonia and aspiration. If patient remains afebrile for next 48 hours and depending on the culture results will de-escalate antibiotics accordingly. Advair, Spiriva. Oxygen supplementation keeping saturation over 90% We will hold off on any steroids for now. Hypertension: Check orthostatic blood pressures. For now continue with home dose of Imdur, amlodipine, hydralazine. We will continue to monitor blood pressures. Goal blood pressure 140/90 mmHg. Dementia: Continue to reorient. Sitter if needed. Continue with home dose of donepezil, Xanax as needed, memantine, sertraline. We will hold off on risperidone as patient seems to be on multiple medications and this could be a cause of her fall as well. We will decrease the dose of sertraline to 100 from 150 mg. As per the patient paperwork in the past and also confirm with family member at bedside patient is DNR/DNI. Cardiac diet. Heparin for DVT prophylaxis We will hold off on SCD until until Doppler results are back and DVT is ruled out. Attestations Medical Necessity Statement*: For more than 2 midnights most likely because of hypoxia, fall Time Spent in Patient Care: Greater than 35 minutes (>than 50% of time spent in counselling and/or direct pt care on unit). 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 Fwd Diagnoses Pneumonitis J18.9 Hypoxia R09.02 Fall W19.XXXA Carotid artery stenosis with cerebral infarction I63.239 Dementia F03.90 Atherosclerotic heart disease of [place] coronary artery without angina pectoris I25.10 [place] vs. transplanted heart: [place] heart Hypertension I10 Hypertension type: essential hypertension Dyslipidemia (high LDL; low HDL) E78.5
[2020-03-09 16:15] LABS: D Dimer 0.99 ug/mIFEU (0-0.59)
[2020-03-09 16:15] LABS: ABG PCO2 46.6 mmHg (35-45); Arterial Blood Gas Hematocrit 37.9 % (37-47); Base Excess ABG 3.3 mmol/L (-2.0-2.0); Blood Gas Allen Test Pos; Blood Gas Sample Site Radial, right; Blood Gas Sample Type Arterial; HCO3 ABG 28.8 mmol/L (22-26); Oxygen Device NC
--- NOTE | 2020-03-09 16:22 | USCV_ITS ---
Bhargavi Flower Age: 84 Gender: F : 1935 Exam Date: 03/09/2020 16:50 Ordering Phys: Wili Madrid MD Technologist: Lea Valles Exam Location: [facility] [place] Indication: Stroke BP: / HR: 104 Rhythm: Sinus Technical Quality: Suboptimal MEASUREMENTS (Male / Female) Normal Values 2D ECHO LV Diastolic Diameter PLAX 2.4 cm 4.2 - 5.9 / 3.9 - 5.3 cm LV Systolic Diameter PLAX 1.5 cm LV Chamber Size 3.3 cm IVS Diastolic Thickness 1.3 cm 0.6 - 1.0 / 0.6 - 0.9 cm IVS Systolic Thickness 1.4 cm LVPW Diastolic Thickness 1.5 cm 0.6 - 1.0 / 0.6 - 0.9 cm LVPW Systolic Thickness 1.6 cm RV Chamber Size 3.0 cm LVOT Diameter 2.0 cm LV Ejection Fraction 2D Teich 72.3 % LV Ejection Fraction MOD 2C 67.8 % LV Ejection Fraction 2C AL 67.5 % LA Diameter 4.1 cm LA Width 4.1 cm LA Height 4.5 cm RA Width 2.6 cm RA Height 3.6 cm Aorta at Sinotubular Diameter 2.6 cm M-MODE LV Diastolic Diameter MM 4.5 cm 4.2 - 5.9 / 3.9 - 5.3 cm LV Systolic Diameter MM 2.5 cm LV Ejection Fraction MM Teich 74.5 % IVS Diastolic Thickness MM 0.8 cm 0.6 - 1.0 / 0.6 - 0.9 cm IVS Systolic Thickness MM 1.2 cm LVPW Diastolic Thickness MM 1.2 cm 0.6 - 1.0 / 0.6 - 0.9 cm LVPW Systolic Thickness MM 1.4 cm Aortic Annulus Diameter 3.1 cm LA Ao Ratio MM 1.3 MV E Point Septal Separation 0.8 cm DOPPLER AV Peak Velocity 154.0 cm/s LVOT Peak Velocity 97.0 cm/s AV Area Cont Eq vti 2.2 cm squared AV Area Cont Eq pk 2.1 cm squared MV Area PHT 2.6 cm squared Mitral E to A Ratio 0.7 MV E' Velocity 9.0 cm/s Mitral E to MV E' Ratio 10.5 Mitral E to LV E' Lateral Ratio 9.9 Mitral E to LV E' Septal Ratio 11.2 TR Peak Velocity 296.0 cm/s TR Peak Gradient 35.0 mmHg TR Mean Velocity 223.1 cm/s TR Mean Gradient 21.5 mmHg TR Velocity Time Integral 114.4 cm TV Peak E Velocity 38.0 cm/s Right Atrial Pressure 3.0 mmHg Pulmonary Artery Systolic Pressu 38.0 mmHg PV Peak Velocity 62.0 cm/s RV Acceleration Time 0.2 s RV Ejection Time 0.3 s RV AcT/ET 0.5 FINDINGS Left Ventricle Normal left ventricular cavity size. Normal left ventricular systolic function. Left ventricular ejection fraction is estimated at 55 %. Although no diagnostic regional wall motion abnormality could be identified, this possibility cannot be completely excluded based on the study. Abnormal (paradoxical) septal motion consistent with postoperative status. Grade 1 diastolic dysfunction with normal to mildly elevated filling pressure. Right Ventricle Normal right ventricular size and systolic function. Right ventricular systolic pressure 45 mmHg. Right Atrium Right atrium not well visualized. Left Atrium Moderately increased left atrial size. Mitral Valve Moderately thickened mitral valve. Moderate mitral annular calcification. No mitral valve stenosis. Trace mitral valve regurgitation. Aortic Valve Aortic valve not well visualized. Thickened and calcified aortic valve. No aortic valve stenosis. Mild aortic valve regurgitation. Tricuspid Valve Tricuspid valve not well visualized. Pulmonic Valve Pulmonic valve not well visualized. Pericardium No pericardial effusion. Aorta Aorta not well visualized. CONCLUSIONS 1. Normal left ventricular cavity size and systolic function. Left ventricular ejection fraction is estimated at 55 %. Although no diagnostic regional wall motion abnormality could be identified, this possibility cannot be completely excluded based on the study. Grade 1 diastolic dysfunction with normal to mildly elevated filling pressure. 2. Normal right ventricular size and systolic function. 3. Mild pulmonary hypertension with pulmonary artery pressure estimated at 45 mmHg. 4. Mild aortic valve regurgitation. 5. No prior similar studies to compare. Kathia Garcia MD (Electronically Signed) Final Date: 10 March 2020 17:53 S
[2020-03-09 16:44] LABS: NT Pro B Type Natriuretic Pept 679 pg/mL (0-450); Thyroid Stimulating Hormone 2.35 uIU/mL (0.27-4.20)
[2020-03-09 17:27] LABS: Vitamin B12 759 pg/mL (232-1245)
[2020-03-09 17:51] LABS: Amphetamines Screen Urine Negative (Negative); Barbiturates Screen Urine Negative (Negative); Benzodiazepines Screen Urine Positive (Negative); Cocaine Screen Urine Negative (Negative); Opiate Screen Urine Negative (Negative); PCP Screen Urine Negative (Negative); THC Screen Urine Negative (Negative)
[2020-03-09 18:30] LABS: Iron 35 ug/dL (37-145); Percent Saturation 13.8 % (20-50); Total Iron Binding Capacity 253 mcg/dl; Unsaturated Iron Binding 218 ug/dL (112-347)
[2020-03-09] MEDS: azithromycin 250 mg Tablet 500 MG PO (18:31)
[2020-03-09 18:39] VITALS: BP 137/72; PULSE 68; RESP 16; TEMP 36.6; O2SAT 97
[2020-03-09 18:51] LABS: Folate Level 16.6 ng/mL (4.8-37.3)
[2020-03-09 19:02] LABS: Influenza A by IFA Negative (Negative); Influenza B by IFA Negative (Negative)
[2020-03-09 20:00] VITALS: BP 166/66; PULSE 63; RESP 18; TEMP 36.4; O2SAT 97
[2020-03-09] MEDS: donepezil 5 MG Tablet 10 MG PO (20:19)
[2020-03-09] MEDS: isosorbide dinitrate 20 mg Tablet PO (20:20)
[2020-03-09] MEDS: hyDRALAzine 10 mg Tablet PO (20:20)
[2020-03-09] MEDS: ALPRAZolam 0.25 mg Tablet PO (20:20)
[2020-03-09] MEDS: cyanocobalamin 1,000 mcg/mL SDV 1000 MCG IM (20:26)
[2020-03-09] MEDS: heparin 5,000 unit/mL INJ 1 mL 5000 UNIT SUBCUT (20:27)
[2020-03-09] MEDS: famotidine 20 mg/2 mL INJ IVP (20:46)
[2020-03-09] MEDS: piperacillin-tazobactam 3.375 GM in sodium chloride 0.9% (plus) 50 ML IV (20:47)
[2020-03-09 21:21] VITALS: PULSE 76; RESP 16; O2SAT 96
[2020-03-09 23:45] VITALS: BP 157/79; PULSE 79; RESP 18; TEMP 36.6; O2SAT 97
[2020-03-10] VITALS (9 sets, daily range): BP systolic 146–208; BP diastolic 61–75; PULSE 67–86; RESP 16–18; TEMP 36.3–36.6; O2SAT 90–98
[2020-03-10] MEDS: OLANZapine 10 mg VIAL IM ×2 (02:06→21:48)
[2020-03-10] MEDS: heparin 5,000 unit/mL INJ 1 mL 5000 UNIT SUBCUT ×3 (03:26→21:45)
[2020-03-10] MEDS: piperacillin-tazobactam 3.375 GM in sodium chloride 0.9% (plus) 50 ML IV ×2 (03:26→11:07)
[2020-03-10 05:59] LABS: Basophils % 0.5 %; Eosinophils # 0.1 10^3/uL (0.0-0.8); Eosinophils % 1.8 %; Hematocrit 37.5 % (37.0-47.0); Lymphocytes # 1.5 10^3/uL (0.8-4.8); Mean Corpuscular Hemoglobin 30.8 pg (28.0-34.0); Mean Corpuscular Volume 96.2 fL (81-99); Mean Platelet Volume 9.7 fL (7.4-10.4); Monocytes # 0.7 10^3/uL (0.2-0.9); Monocytes % 9.3 %; Neutrophils # 5.3 10^3/uL (1.8-7.7); Neutrophils % 69.1 %; Nucleated Red Blood Cells % 0 %; Platelet Count 206 10^3/cmm (130-400); Red Cell Distribution Width 13.5 % (12.1-15.1); White Blood Count 7.7 10^3/uL (4.0-10.0)
[2020-03-10 06:29] LABS: Alanine Aminotransferase 11 U/L (0-33); Albumin Level 3.9 g/dL (3.5-5.2); Alkaline Phosphatase 63 IU/L (35-105); Anion Gap 17.7 (5-19); Aspartate Amino Transferase 19 U/L (0-32); Blood Urea Nitrogen 16 mg/dL (8-23); Calcium 9.5 mg/dL (8.5-10.5); Carbon Dioxide 25 mmol/L (22-29); Chloride 99 mmol/L (98-107); Globulin 3.4 g/dL (1.3-4.6); Glucose 109 mg/dL (65-115); Osmolality Calculated 283 mOsm/kg (285-295); Potassium 3.7 mmol/L (3.5-5.1); Sodium 138 mmol/L (136-145); Total Bilirubin 0.3 mg/dL (0.15-1.2); Total Protein 7.3 g/dL (6.6-8.7)
[2020-03-10] MEDS: multivitamin therapeutic Tablet 1 TAB PO (08:51)
[2020-03-10] MEDS: sertraline 100 mg Tablet PO (08:51)
[2020-03-10] MEDS: metoprolol succinate ER (24 HR) 25 mg Tablet 12.5 MG PO (08:51)
[2020-03-10] MEDS: ascorbic acid 500 mg Tablet PO ×2 (08:51→21:45)
[2020-03-10] MEDS: famotidine 20 mg/2 mL INJ IVP ×2 (08:52→21:56)
[2020-03-10] MEDS: amlodipine 10 mg Tablet PO (08:52)
[2020-03-10] MEDS: pantoprazole DR 40 mg Tablet PO (08:52)
[2020-03-10] MEDS: memantine 5 mg tablet 10 MG PO ×2 (08:52→21:44)
[2020-03-10] MEDS: ALPRAZolam 0.25 mg Tablet PO (11:06)
--- NOTE | 2020-03-10 13:41 | PM.PN ---
Subjective Subjective: Interval history: NO acute events.Sitter at bedside. Covid 19 at [facility] negative. As per RN ismael has been doing well, without any complains of SOB, N/V. Patient on exam sitting in chair denying of any pain or discomfort Vitals/I&O/Wt Last Vital Signs Temp 97.9 F 03/10/20 11:25 Pulse 67 03/10/20 11:25 Resp 16 03/10/20 11:25 BP 172/67 03/10/20 11:25 Pulse Ox 98 03/10/20 11:25 03/09/20 03/10/20 03/10/20 22:59 06:59 14:59 Intake Total 30 / 30 50 / 80 50 / 50 Output Total 220 / 220 Balance -170 / -140 50 / 50 Weight last 48 hrs Weight 56.563 kg Weight 52.617 kg Physical Exam Narrative: EXAM NARRATIVE: General: No acute distress, AO x 1-2, on nasal cannula 1 L saturating 92% HEENT: PERRLA, pupils bilaterally equal and reactive Chest: Bilateral bronchial breath sounds, occasional rhonchi present in the right lung more on the anterior side and posterior, more on upper lobe and lower zone CVS: S1-S2 regular, no murmurs, no tachycardia, no gallops, no rubs Abdomen: Soft, nontender, no organomegaly, bowel sounds present Neuro: No focal deficits, no facial deformity, AO x3, power 3/5 in all limbs Data : 03/10/20 05:30 03/10/20 05:30 Micro: Microbiology 03/09/20 13:34 Blood Culture - Preliminary Blood SPECIMEN COLLECTED 03/09/20 16:15 Blood Culture - Preliminary Blood SPECIMEN COLLECTED A&P Assessment and plan (1) Pneumonitis: Status: Acute (2) Hypoxia: Status: Acute (3) Fall: Status: Acute (4) Carotid artery stenosis with cerebral infarction: Status: Acute (5) Dementia: Status: Acute (6) Atherosclerotic heart disease of [place] coronary artery without angina pectoris: Status: Acute Qualifiers: [place] vs. transplanted heart: [place] heart Qualified Code(s): I25.10 - Atherosclerotic heart disease of [place] coronary artery without angina pectoris (7) Hypertension: Status: Acute Qualifiers: Hypertension type: essential hypertension Qualified Code(s): I10 - Essential (primary) hypertension (8) Dyslipidemia (high LDL; low HDL): Status: Acute Additional A&P Information 84-year-old female with past medical history of CVA, hypertension, COPD, CAD who lives at [facility] dementia unit presented because of a fall. Fall: Unwitnessed fall. As per the nursing at [facility] there is a concern of a possible droopiness of the face. On review of chart patient was admitted with similar complaint in December 2019 at that time was found to have moderate plaques bilateral. He has a history of intolerance to aspirin and statin. At that time family had decided not going for any further investigation and making sure the patient is comfortable given her poor baseline functionality. This has been confirmed again by daughter at bedside. CT head on admission negative for any bleed. Fall could be because of hypoxia. Patient saturating in high 80s on room air in ER. Checks x-ray suggestive of pneumonitis. Hypoxia: Most likely because of pneumonitis. Given her hypoxia, borderline tachycardia cannot rule out PE. Check d-dimer, ABG to rule out hypoxia and hypercapnia, lower limb Dopplers. Unfortunately cannot do CTA chest due to elevated creatinine. Pneumonitis: COVID 19 at skilled nursing negative. One done at [facility] pending. As patient remains afebrile will d/c Abx and moniotr for 24 hr for fever, leukocytosis, hemodynamic instability Advair, Spiriva. Oxygen supplementation keeping saturation over 90% We will hold off on any steroids for now. Hypertension: Check orthostatic blood pressures. For now continue with home dose of Imdur, amlodipine. Will increase hydralazine to 25 mg TID as BP mildly elevated. We will continue to monitor blood pressures. Goal blood pressure 140/90 mmHg. Dementia: Continue to reorient. Sitter if needed. Continue with home dose of donepezil, Xanax as needed, memantine, sertraline. We will hold off on risperidone as patient seems to be on multiple medications and this could be a cause of her fall as well. We will decrease the dose of sertraline to 100 from 150 mg. As per the patient paperwork in the past and also confirm with family member at bedside patient is DNR/DNI. Cardiac diet. Heparin for DVT prophylaxis We will hold off on SCD until until Doppler results are back and DVT is ruled out. Attestations Medical Necessity Statement*: AMS, fall Time Spent in Patient Care: Greater than 35 minutes (>than 50% of time spent in counselling and/or direct pt care on unit). 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 transplanted heart: [place] heart Hypertension I10 Hypertension type: essential hypertension Dyslipidemia (high LDL; low HDL) E78.5
--- NOTE | 2020-03-10 16:05 | PC.NURSE ---
Family call this morning to check on patient. The daughter stated she thought her mother's speech was slurred and she was not as verbal as usual. Patient has a sitter supervising her.
[2020-03-10] MEDS: donepezil 5 MG Tablet 10 MG PO (21:45)
[2020-03-10] MEDS: isosorbide dinitrate 20 mg Tablet PO (21:45)
[2020-03-10] MEDS: hyDRALAzine 20 mg/mL INJ 1 mL 10 MG IVP (21:52)
[2020-03-11] VITALS (9 sets, daily range): BP systolic 129–183; BP diastolic 66–71; PULSE 73–97; RESP 16–20; TEMP 36.3–37.2; O2SAT 90–98
[2020-03-11] MEDS: ALPRAZolam 0.25 mg Tablet PO (00:39)
[2020-03-11] MEDS: heparin 5,000 unit/mL INJ 1 mL 5000 UNIT SUBCUT (03:30)
[2020-03-11 07:40] LABS: Coronavirus Lab Test PTC NOT DETECTED
[2020-03-11] MEDS: memantine 5 mg tablet 10 MG PO (09:18)
[2020-03-11] MEDS: sertraline 100 mg Tablet PO (09:18)
[2020-03-11] MEDS: isosorbide dinitrate 20 mg Tablet PO (09:19)
[2020-03-11] MEDS: pantoprazole DR 40 mg Tablet PO (09:19)
[2020-03-11] MEDS: metoprolol succinate ER (24 HR) 25 mg Tablet 12.5 MG PO (09:19)
[2020-03-11] MEDS: amlodipine 10 mg Tablet PO (09:19)
[2020-03-11] MEDS: ascorbic acid 500 mg Tablet PO (09:19)
[2020-03-11] MEDS: hyDRALAzine 25 mg Tablet PO (09:19)
[2020-03-11] MEDS: multivitamin therapeutic Tablet 1 TAB PO (09:19)
[2020-03-11] MEDS: famotidine 20 mg/2 mL INJ IVP (09:21)
--- NOTE | 2020-03-11 13:51 | PM.DCS ---
Discharge Providers Date of Admission: 03/09/20 15:39 Date of Discharge: March 11, 2020 Attending Provider at Admission: Wili Madrid MD Attending Provider at Discharge: Wili Madrid MD Primary Care Provider: Sanjay Rosenberg MD Diagnoses at Discharge Discharge Diagnosis (1) Pneumonitis: Status: Acute (2) Hypoxia: Status: Acute (3) Fall: Status: Acute (4) Carotid artery stenosis with cerebral infarction: Status: Acute (5) Dementia: Status: Acute (6) Atherosclerotic heart disease of [place] coronary artery without angina pectoris: Status: Acute Qualifiers: [place] vs. transplanted heart: [place] heart Qualified Code(s): I25.10 - Atherosclerotic heart disease of [place] coronary artery without angina pectoris (7) Hypertension: Status: Acute Qualifiers: Hypertension type: essential hypertension Qualified Code(s): I10 - Essential (primary) hypertension (8) Dyslipidemia (high LDL; low HDL): Status: Acute Reason for Visit Reason for Visit: FALL, LOSS OF FINE MOTOR SKILLS Hospital Course Discharge Summary: Bhargavi Flower is a 84 year old female with chronic Alzheimer's dementia, past CVA, HTN, HLD, CAD, residing in [facility] [place], COPD, falls in the past came to the ER today after she was seen facedown on the floor at the long-term today morning. Most of the history taken through the nurse at [facility] via phone. As per the nurse patient has been little more confused for last couple of days more than her baseline and today morning while evaluation she was found facedown in her room. They did not notice any seizure-like activity, bowel or bladder accidents near area fall. On evaluation as per the nurse after getting her up in chair they thought patient has been having drooping of her left eyelid along with facial deformity to the left side of her face. Because of this reason patient was sent over to the ER. In the ER patient did not have any facial deformity but was saturating 87% on room air needing 1 L nasal cannula oxygen supplementation for saturation to be maintained over 91%. As per the nurse at the long-term patient has not been having any fevers, difficulty in breathing, cough, expectoration, dysuria, diarrhea and her appetite has been at baseline as well. Blood work in the ER showed a normal white count of 7.7, , Hemoglobin of 12.2,no left shift, sodium of 136, potassium of 4.2, creatinine of 1.3, proBNP of 679, chest x-ray concerning for new patchy infiltrate lateral right upper lobe anterior segment for which pneumonitis could not be excluded, bilateral pulmonary infiltrates otherwise which have been stable from before. Of note, every resident and employee at [facility] is been tested for COVID-19 because of potential exposure and patient's COVID-19 was sent out to test on Saturday but no results are back yet. She was admitted for further monitoring. Fall: As per the nursing at [facility] there is a concern of a possible droopiness of the face. On review of chart patient was admitted with similar complaint in December 2019 at that time was found to have moderate plaques bilateral. He has a history of intolerance to aspirin and statin. At that time family had decided not going for any further investigation and making sure the patient is comfortable given her poor baseline functionality. This has been confirmed again by daughter at bedside. During hospitalization patient did not have any further events suggestive of possible TIA. There was a concern of aspiration pneumonitis on admission for which he achieved first she was on antibiotics but as patient remained afebrile and hemodynamically stable without any leukocytosis antibiotics were withheld and she was monitored for 24 hours and she remained stable while monitoring. During hospitalization she was found to have elevated blood pressure for which her dose of hydralazine was increased to which she responded well. During hospitalization her COVID-19 done at rest to get back negative. Repeat COVID-19 test was done and that was negative as well. She is been discharged hemodynamically stable condition, back at her baseline mentation. Physical Exam Narrative: EXAM NARRATIVE: General: No acute distress, sleepy but arpusable, AO x 1-2, HEENT: PERRLA, pupils bilaterally equal and reactive Chest: Bilateral bronchial breath sounds, occasional rhonchi present in the right lung more on the anterior side and posterior, more on upper lobe and lower zone CVS: S1-S2 regular, no murmurs, no tachycardia, no gallops, no rubs Abdomen: Soft, nontender, no organomegaly, bowel sounds present Neuro: No focal deficits, no facial deformity, AO x3, power 3/5 in all limbs Discharge Data Data Completed and Pending: Completed Studies During Hospitalization Category Date Time Status CT chest wo con 7 1250 Urgent Cat Scan 03/09/20 15:[address] head wo con* 7 0450 Urgent Cat Scan 03/09/20 Completed XR chest 1V mansoor ble [id number] Urgent Exams 03/09/20 13:02 Completed CV echo complete* [id number] Routine Ultrasound 03/09/20 16:22 [place] [id number] Urgent Ultrasound 03/09/20 16:02 Completed Pending at discharge Category Date Time Status Blood Culture Sta t Lab 03/09/20 13:34 Results Legionella Antige n STAT Routine Lab 03/09/20 18:06 Ordered Sputum Culture an d Gram Stain Stat Lab 03/09/20 18:06 Uncollected Labs from last 24 hours 03/09/20 20:30 Nasal/Oral COVID-1 9 PCR Not detected Vitals: Last Vital Signs Temp 98.6 F 03/11/20 11:13 Pulse 74 03/11/20 11:13 Resp 16 03/11/20 11:13 BP 129/66 03/11/20 11:13 Pulse Ox 98 03/11/20 11:13 Discharge Plan Discharge Patient Disposition: Xfer SNF Condition: Stable Prescriptions: New hydralazine 25 mg Tablet 25 mg PO TID Qty: 90 RF: 0 Continued amlodipine 10 mg tablet 10 mg PO DAILY RF: 0 methenamine hippurate 1 gram tablet 1 gm PO BID RF: 0 ascorbic acid (vitamin C) 500 mg capsule 500 mg PO BID RF: 0 nitroglycerin [Nitrostat] 0.4 mg tablet, sublingual 0.4 mg SUBLINGUAL Q5M PRN (Reason: CHEST PAINS) RF: 0 donepezil [Aricept] 10 mg tablet 10 mg PO BEDTIME RF: 0 memantine [Namenda] 10 mg tablet 10 mg PO BID RF: 0 sertraline [Zoloft] 100 mg tablet 150 mg PO DAILY RF: 0 alprazolam 0.25 mg tablet 0.25 mg PO BID PRN (Reason: Anxiety) RF: 0 multivitamin Tablet 1 tab PO DAILY RF: 0 risperidone [Risperdal] 0.5 mg tablet 0.5 mg PO BID RF: 0 magnesium hydroxide [Milk of Magnesia] 400 mg/5 mL suspension 400 mg PO DAILY PRN (Reason: Constipation) RF: 0 bisacodyl 10 mg suppository 10 mg VT DAILY PRN (Reason: Constipation) RF: 0 omeprazole 40 mg Capsule,Delayed Release(Dr/Ec) 40 mg PO DAILY RF: 0 isosorbide dinitrate 20 mg Tablet 20 mg PO BID RF: 0 Culturelle 10 billion cell Capsule 1 cap PO DAILY RF: 0 acetaminophen [Tylenol] 325 mg Tablet 325 - 650 mg PO QID PRN (Reason: Pain) RF: 0 cyanocobalamin (vitamin B-12) 1,000 mcg/mL Solution 1,000 mcg IM Q30D RF: 0 Fleet Enema 19-7 gram/118 mL Enema 118 ml [place] DAILY PRN (Reason: CONSTIPATED) RF: 0 metoprolol succinate 25 mg tablet extended release 24 hr 12.5 mg PO DAILY Qty: 15 RF: 0 hydralazine 10 mg tablet 10 mg PO BID Qty: 60 RF: 0 albuterol sulfate 2.5 mg /3 mL (0.083 %) Solution For Nebulization 2.5 mg INHALATION QID PRN (Reason: Shortness Of Breath) RF: 0 budesonide-formoterol [Symbicort] 160-4.5 mcg/actuation Hfa Aerosol Inhaler 2 puff INHALATION BID RF: 0 Discharge Orders: Discharge Order (Routine); Ordered 03/11/20 Ordered By: Wili Madrid Discharge Diet: Cardiac Discharge Activity: Resume usual activity Activity Restrictions/Additional Instructions: dose of hydralazine was increased Discharge Date/Time: 03/11/20 17:46 Discharge Attestations Time Spent in Discharge Care*: greater than 30 min Specific Discharge Activities: Specific discharge activities: discussing with welfare case worker/social workers/dc planners, documenting/other paperwork and evaluating patient/reviewing data Status at Discharge: Cognitive status at discharge: severely impaired cognition, Behavioral status at discharge: cooperative, Functional status at discharge: other assisted ambulation Overall status at discharge: patient is back to baseline Quality Metrics Clinical Quality Measures During this hospital stay, did patient experience: None Coding Level of Care Code Acute Tree Marker for Carlitog Fwd Diagnoses Pneumonitis J18.9 Hypoxia R09.02 Fall W19.XXXA Carotid artery stenosis with cerebral infarction I63.239 Dementia F03.90 Atherosclerotic heart disease of [place] coronary artery without angina pectoris I25.10 [place] vs. transplanted heart: [place] heart Hypertension I10 Hypertension type: essential hypertension Dyslipidemia (high LDL; low HDL) E78.5
== END 2020-03-11 17:46 | disposition skilled nursing facility (03) | DRG 193 ==
LOC: ER 13:01 → MEDSURG 17:18
PROVIDERS: Emergency Medicine; Admitting Provider Student in an Organized Health Care Education/Training Program; Family Provider Family Medicine; PCP Family Medicine; Visit Provider Student in an Organized Health Care Education/Training Program
DX: J18.9 Pneumonia, unspecified organism (principal); I63.239 Cerebral infarction due to unspecified occlusion or stenosis of unspecified carotid artery; E78.5 Hyperlipidemia, unspecified; I10 Essential (primary) hypertension; F03.90 Unspecified dementia, unspecified severity, without behavioral disturbance, psychotic disturbance, mood disturbance, and anxiety; I25.10 Atherosclerotic heart disease of native coronary artery without angina pectoris; R09.02 Hypoxemia; J44.9 Chronic obstructive pulmonary disease, unspecified; Z91.81 History of falling; M19.90 Unspecified osteoarthritis, unspecified site; N30.20 Other chronic cystitis without hematuria
CPT/HCPCS: 12345; 36415; 36600; 70450; 71045; 71250; 80053; 80306; 81001; 82607; 82746; 82803; 83540; 83550; 83880; 84145; 84443; 85025; 85378; 85610; 87040; 87635; 87641; 87804; 93306; 93970; 94640; 96372; 96375; 99282; J0360; J1644; J2543; J3420; J3490; Q0144

== ENCOUNTER 2020-04-16 08:30 | Emergency (ER) | payer MEDICARE, OTHER, SELFPAY ==
[2020-04-16 08:31] VITALS: BP 173/85; PULSE 89; RESP 18; TEMP 36.8; O2SAT 97
--- NOTE | 2020-04-16 08:37 | ECG_ITS ---
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 Measurements Intervals [place] Rate: 82 P: 66 AR: 146 QRS: 123 QRSD: 84 T: 28 QT: 378 QTc: 444 Interpretive Statements SINUS RHYTHM POSSIBLE arm lead reversal SEPTAL MYOCARDIAL INFARCTION , PROBABLY OLD [40+ ms Q WAVE IN V1/V2] Compared to ECG 01/22/2020 10:50:53 No significant changes Electronically Signed On 04-16-2020 12:39:48 CDT by Kathia Garcia M.D. [id number]
--- NOTE | 2020-04-16 08:37 | XRR_ITS ---
PROCEDURE INFORMATION: Exam: XR Chest, 1 View Exam date and time: 04/16/2020 8:40 AM Age: 84 years old Clinical indication: Shortness of breath; Prior surgery; Surgery type: Heart; Additional info: Dyspnea/cough TECHNIQUE: Imaging protocol: XR of the chest Views: 1 view. COMPARISON: CT chest [facility] [id number] 03/09/2020 5:28 PM FINDINGS: Lungs: Interstitial disease and asymmetric right basilar airspace disease. Pleural space: No significant pleural effusion. Heart/Mediastinum: Cardiac bypass surgery. No cardiomegaly. Vasculature: Calcification of the thoracic aorta. Bones/joints: Osteopenia and degenerative change. XR/XR chest 1V portable [id number] IMPRESSION: Interstitial disease and asymmetric right basilar airspace disease.
--- NOTE | 2020-04-16 08:37 | ED_ITS ---
HPI - URI/Sore Throat General: Chief Complaint: Upper Respiratory Infection Stated Complaint: Pneumonia Time Seen by Provider: 04/16/20 08:36 History of Present Illness: HPI Narrative: 84-year-old female brought to the emergency room via EMS from the group home. She was started on Levaquin on 04/12/2020 for pneumonia. prison staff perceived that she was doing worse and sent her to the group home. She is on 2 L by nasal cannula she is usually WIGGINS's PRN. She has a history of COPD she has some mild dementia as well she denies any abdominal pain chest pain or MD elicited complaint: cough Pertinent past history: pneumonia Onset (ago): day(s) Consistency: constant Severity: mild Able to tolerate fluids by mouth: Yes Exacerbating factors: nothing Relieving factors: nothing Associated symptoms: Reports no associated symptoms, congestion and cough; Deny abdominal pain, chest pain, diarrhea, fever(s), myalgias, nasal congestion, nausea, short of breath or vomiting Treatments prior to arrival: antibiotics Review of Systems Const: Denies: fever(s) ENMT: Denies: nasal congestion Card: Denies: chest pain Resp: Denies: dyspnea, productive cough or non-productive cough GI: Denies: abdominal pain, nausea, vomiting or diarrhea : Denies: flank pain, difficulty voiding, dysuria, urinary frequency or urinary urgency Skin/Breast: Denies: rash or pruritus PFSH ED PFSH: Medical History Anxiety Atherosclerotic heart disease of [place] coronary artery without angina pectoris Carotid artery stenosis Carotid artery stenosis with cerebral infarction Chronic cystitis Coronary artery disease DJD (degenerative joint disease) Dyslipidemia (high LDL; low HDL) Hypertension Swelling of left lower extremity Surgical History History of vaginal hysterectomy Hx of CABG Hx of cataract surgery Hx of cholecystectomy Family History Other CAD (coronary artery disease) Cancer Family history of premature coronary artery disease Social History Smoking and tobacco status: never smoked Alcohol intake: never Adopted: No Caregiver/support person: No Lives independently: No Household members: family Marital status: / Current occupational status: retired History of recent travel: No Current gender identity: Female Physical Exam Const: COMMON NORMALS: no acute distress GENERAL APPEARANCE: cooperative and comfortable HENMT: COMMON NORMALS: normocephalic and atraumatic HEAD & SCALP: normocephalic and atraumatic Eye: COMMON NORMALS: Equal, round and reactive pupils present, EOMs intact bilaterally, conjunctivae normal and no scleral icterus CONJUNCTIVA: Yes conjunctivae normal PUPIL: Yes Equal, round and reactive pupils present Neck/C-Spine: COMMON NORMALS: full ROM, no lymphadenopathy, supple and no JVD Lymph: LYMPHATIC: no lymphadenopathy noted and no lymphedema noted Resp: AUSCULTATION: rales on the right 1/[address] up Cardio: COMMON NORMALS: no JVD, regular rate, regular rhythm and No murmurs present (Cardio) RATE: regular rate RHYTHM: regular rhythm GI: COMMON NORMALS: Soft to palpation and No hepatosplenomegaly present AUSCULTATION: Yes normoactive bowel sounds PALPATION: Yes Soft to palpation, No Tenderness to palpation present (GI), No Guarding due to palpation present (GI) and Yes No hepatosplenomegaly present Extremity: COMMON NORMALS: normal to inspection, capillary refill normal, no clubbing, cyanosis or edema, no calf tenderness and no pedal edema Skin: COMMON NORMALS: no rashes or lesions noted GENERAL SKIN EXAM: no rashes or lesions noted Course Vital Signs: Vital signs: Vital Signs Temperature 98.2 F 04/16/20 08:31 Pulse Rate 74 04/16/20 09:34 Respiratory Rate 18 04/16/20 09:34 Blood Pressure 162/77 04/16/20 09:34 Pulse Oximetry 96 04/16/20 09:34 MDM - URI/Sore Throat MDM Narrative: Medical decision making narrative: Chest x-ray shows signs of pneumonia. Complete the antibiotic previously prescribed continue oxygen support. Patient is tolerating well I think she can continue treatment at the group home. Lab Data: Labs: Lab Results 04/16/20 04/16/20 Range/Units 09:10 09:10 WBC 8.7 (4.0-10.0) 10^3/ uL RBC 3.61 L (4.1-5.3) 10^6/u L Hgb 11.0 L (11.5-15.3) g/dL Hct 34.1 L (37.0-47.0) % MCV 94.5 (81-99) fL MCH 30.5 (28.0-34.0) pg MCHC 32.3 (30.0-36.0) g/dL RDW 13.2 (12.1-15.1) % Plt Count 225 (130-400) 10^3/c mm MPV 10.3 (7.4-10.4) fL Neut % (Auto) 69.3 % Lymph % (Auto) 15.4 % [place] % (Auto) 10.9 % Eos % (Auto) 3.3 % Baso % (Auto) 0.6 % Neut # (Auto) 6.01 (1.8-7.7) 10^3/u L Lymph # (Auto) 1.3 (0.8-4.8) 10^3/u L [place] # (Auto) 0.9 (0.2-0.9) 10^3/u L Eos # (Auto) 0.3 (0.0-0.8) 10^3/u L Baso # (Auto) 0.1 (0.0-0.1) 10^3/u L Nucleated RBC % (a uto) 0 % Nucleated RBCs # 0.0 /100WBC Sodium 134 L (136-145) mmol/L Potassium 4.5 (3.5-5.1) mmol/L Chloride 98 (98-107) mmol/L Carbon Dioxide 26 (22-29) mmol/L Anion Gap 14.5 (5-19) BUN 29 H (8-23) mg/dL Creatinine 1.5 H (0.5-0.9) mg/dL GFR Calculation Not Reportable Glucose 117 H (65-115) mg/dL Calculated Osmolal ity 276 L (285-295) mOsm/k g Calcium 9.6 (8.5-10.5) mg/dL Total Bilirubin 0.5 (0.15-1.2) mg/dL AST 41 H (0-32) U/L ALT 35 H (0-33) U/L Alkaline Phosphata se 67 (35-105) IU/L Total Protein 7.1 (6.6-8.7) g/dL Albumin 3.4 L (3.5-5.2) g/dL Globulin 3.7 (1.3-4.6) g/dL Discharge Plan Discharge Patient Disposition: Home Clinical Impression: Pneumonia Condition: Stable Prescriptions: No Action amlodipine 10 mg tablet 10 mg PO DAILY RF: 0 methenamine hippurate 1 gram tablet 1 gm PO BID RF: 0 ascorbic acid (vitamin C) 500 mg capsule 500 mg PO BID RF: 0 nitroglycerin [Nitrostat] 0.4 mg tablet, sublingual 0.4 mg SUBLINGUAL Q5M PRN (Reason: CHEST PAINS) RF: 0 donepezil [Aricept] 10 mg tablet 10 mg PO BEDTIME RF: 0 memantine [Namenda] 10 mg tablet 10 mg PO BID RF: 0 sertraline [Zoloft] 100 mg tablet 150 mg PO DAILY RF: 0 alprazolam [Xanax] 0.25 mg tablet 0.25 mg PO BID PRN (Reason: Anxiety) RF: 0 multivitamin Tablet 1 tab PO DAILY RF: 0 risperidone [Risperdal] 0.5 mg tablet 0.5 mg PO BID RF: 0 magnesium hydroxide [Milk of Magnesia] 400 mg/5 mL suspension 400 mg PO DAILY PRN (Reason: Constipation) RF: 0 bisacodyl 10 mg suppository [address] DAILY PRN (Reason: Constipation) RF: 0 omeprazole 40 mg Capsule,Delayed Release(Dr/Ec) 40 mg PO DAILY RF: 0 isosorbide dinitrate 20 mg Tablet 20 mg PO BID RF: 0 Culturelle 10 billion cell Capsule 1 cap PO DAILY RF: 0 hydralazine 25 mg Tablet 25 mg PO TID Qty: 90 RF: 0 acetaminophen [Tylenol] 325 mg Tablet 325 - 650 mg PO QID PRN (Reason: Pain) RF: 0 cyanocobalamin (vitamin B-12) 1,000 mcg/mL Solution 1,000 mcg IM Q30D RF: 0 Fleet Enema 19-7 gram/118 mL Enema [address] DAILY PRN (Reason: CONSTIPATED) RF: 0 metoprolol succinate 25 mg tablet extended release 24 hr 12.5 mg PO DAILY Qty: 15 RF: 0 albuterol sulfate 2.5 mg /3 mL (0.083 %) Solution For Nebulization 2.5 mg INHALATION QID PRN (Reason: Shortness Of Breath) RF: 0 budesonide-formoterol [Symbicort] 160-4.5 mcg/actuation Hfa Aerosol Inhaler 2 puff INHALATION BID RF: 0 Calcium 600 600 mg calcium (1,500 mg) Tablet 600 mg PO TID RF: 0 levofloxacin 750 mg tablet 750 mg PO DAILY RF: 0 Referrals: Sanjay Rosenberg MD [Primary Care Provider] - Discharge Diet: Usual diet Discharge Activity: Increase activity as tolerated Activity Restrictions/Additional Instructions: Complete previously prescribed antibiotics continue oxygen follow-up with your attending through the group home. Coding Level of Care Code ED Boat Rigger for Chg Fwd Exam Comprehensive
[2020-04-16 08:56] VITALS: BP 173/85; PULSE 82; RESP 18; O2SAT 95
--- NOTE | 2020-04-16 09:22 | PC.NURSE ---
When patient gave urine sample she stated it hurt when she peed.
[2020-04-16 09:26] LABS: Basophils # 0.1 10^3/uL (0.0-0.1); Basophils % 0.6 %; Eosinophils # 0.3 10^3/uL (0.0-0.8); Eosinophils % 3.3 %; Hematocrit 34.1 % (37.0-47.0); Lymphocytes # 1.3 10^3/uL (0.8-4.8); Lymphocytes % 15.4 %; Mean Corpuscular HGB Conc 32.3 g/dL (30.0-36.0); Mean Corpuscular Hemoglobin 30.5 pg (28.0-34.0); Mean Corpuscular Volume 94.5 fL (81-99); Mean Platelet Volume 10.3 fL (7.4-10.4); Monocytes # 0.9 10^3/uL (0.2-0.9); Monocytes % 10.9 %; Neutrophils # 6.01 10^3/uL (1.8-7.7); Neutrophils % 69.3 %; Nucleated Red Blood Cells % 0 %; Platelet Count 225 10^3/cmm (130-400); Red Blood Count 3.61 10^6/uL (4.1-5.3); Red Cell Distribution Width 13.2 % (12.1-15.1); White Blood Count 8.7 10^3/uL (4.0-10.0)
[2020-04-16 09:34] VITALS: BP 162/77; PULSE 74; RESP 18; O2SAT 96
[2020-04-16 09:52] LABS: Alanine Aminotransferase 35 U/L (0-33); Albumin Level 3.4 g/dL (3.5-5.2); Alkaline Phosphatase 67 IU/L (35-105); Blood Urea Nitrogen 29 mg/dL (8-23); Calcium 9.6 mg/dL (8.5-10.5); Carbon Dioxide 26 mmol/L (22-29); Chloride 98 mmol/L (98-107); Globulin 3.7 g/dL (1.3-4.6); Glucose 117 mg/dL (65-115); Osmolality Calculated 276 mOsm/kg (285-295); Sodium 134 mmol/L (136-145); Total Bilirubin 0.5 mg/dL (0.15-1.2); Total Protein 7.1 g/dL (6.6-8.7)
[2020-04-16 09:53] LABS: Anion Gap 14.5 (5-19); Aspartate Amino Transferase 41 U/L (0-32); Potassium 4.5 mmol/L (3.5-5.1)
[2020-04-16] MEDS: sodium chloride 0.9% 500 ML 999 ML IV (10:08)
[2020-04-16 10:13] VITALS: BP 170/86; PULSE 67; RESP 18; TEMP 37.1; O2SAT 95
[2020-04-16 10:34] LABS: Add Urine Microscopic? YES; Bilirubin Urine Neg (NEGATIVE); Blood Urine Neg (Negative); Glucose Urine UA Norm (Normal); Ketones Urine Negative (Negative); Leukocyte Esterase Urine Negative (Negative); Nitrate Urine Negative (Negative); Protein Urine 3+ (Negative); Urine Appearance Hazy (CLEAR); Urine Color Yellow (Yellow); Urobilinogen Urine Norm (Negative); pH Urine 6 (5-7)
[2020-04-16 10:36] LABS: Bacteria Urine 2+; Mucus Urine 2+; Squamous Epithelial Cell Urine 15-25 (0-5)
[2020-04-16 10:37] LABS: Add Urine Culture? No
== END 2020-04-16 11:23 | disposition home or self-care (01) ==
PROVIDERS: Emergency Provider Family Medicine; PCP Family Medicine
DX: J18.9 Pneumonia, unspecified organism (principal); I25.10 Atherosclerotic heart disease of native coronary artery without angina pectoris; E78.5 Hyperlipidemia, unspecified; I10 Essential (primary) hypertension; Z95.1 Presence of aortocoronary bypass graft
CPT/HCPCS: 12345; 71045; 80053; 81001; 85025; 87040; 93005; 99283; J7040

== ENCOUNTER 2020-04-21 13:35 | Inpatient (IN) | payer MEDICARE, OTHER, SELFPAY ==
[2020-04-21] VITALS (7 sets, daily range): BP systolic 133–165; BP diastolic 59–75; PULSE 90–97; RESP 20–26; TEMP 36.6–37.1; O2SAT 90–95; BMI 22.3
--- NOTE | 2020-04-21 13:53 | ECG_ITS ---
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 Measurements Intervals [place] Rate: 95 P: 28 [place]: 154 QRS: 4 QRSD: 82 T: -4 QT: 334 QTc: 421 Interpretive Statements SINUS RHYTHM POSSIBLE LEFT ATRIAL ENLARGEMENT [-0.1mV P WAVE IN V1/V2] SEPTAL MYOCARDIAL INFARCTION , PROBABLY OLD [40+ ms Q WAVE IN V1/V2] Compared to ECG 04/16/2020 08:54:33 No significant changes Electronically Signed On 04-21-2020 20:14:40 CDT by Kathia Garcia M.D. [id number]
--- NOTE | 2020-04-21 13:54 | ED_ITS ---
HPI - SOB/Dyspnea General: Chief Complaint: Shortness of Breath/Dyspnea Stated Complaint: RESPIRATORY DISTRESS Time Seen by Provider: 04/21/20 13:36 Source: patient and EMS Mode of arrival: EMS Limitations: other (Dementia) History of Present Illness: HPI Narrative: The patient has dementia and is unable to give me a proper history. Most of the history obtained from EMS. According to EMS they were called out to a local custodial where this resident resides in the dementia unit and asked to evaluate this patient who they said was in respiratory distress. In the last week she has been treated for pneumonia with antibiotics. She developed respiratory distress today and she was asked to be seen in the emergency department. According to EMS the patient denied any complaints was saturating well on 2 L/min of oxygen. When I asked the patient denies difficulty breathing, she denies any pain, she however is not oriented to place and time. She is oriented to person only. Unable to obtain further history from her. MD elicited complaint: shortness of breath Review of Systems General: Reports: ROS unobtainable due to mental status (Dementia) PFS ED PFSH: Medical History Anxiety Atherosclerotic heart disease of [place] coronary artery without angina pectoris Carotid artery stenosis Carotid artery stenosis with cerebral infarction Chronic cystitis Coronary artery disease DJD (degenerative joint disease) Dyslipidemia (high LDL; low HDL) Hypertension Swelling of left lower extremity Surgical History History of vaginal hysterectomy Hx of CABG Hx of cataract surgery Hx of cholecystectomy Family History Other CAD (coronary artery disease) Cancer Family history of premature coronary artery disease Social History Smoking and tobacco status: never smoked Alcohol intake: never Adopted: No Caregiver/support person: No Lives independently: No Household members: family Marital status: / Current occupational status: retired History of recent travel: No Current gender identity: Female Physical Exam Const: COMMON NORMALS: no acute distress, average body habitus, patient oriented x3, no limitations, healthy appearing, alert and well nourished HENMT: COMMON NORMALS: normocephalic, atraumatic and moist oral mucous membranes HEAD & SCALP: normocephalic and atraumatic Neck/C-Spine: COMMON NORMALS: no meningeal signs and no JVD Resp: COMMON NORMALS: normal respiratory effort, No retractions, No use of accessory muscles and percussion normal AUSCULTATION: rales bilateral and diffuse PERCUSSION: percussion normal Cardio: COMMON NORMALS: no JVD, regular rate, regular rhythm, S1 normal heart sound present, S2 normal heart sound present, No gallops present (Cardio), No clicks present (Cardio), No murmurs present (Cardio), No rub (Cardio) and Peripheral pulses 2+ throughout RATE: regular rate RHYTHM: regular rhythm HEART SOUNDS: S1 normal heart sound present and S2 normal heart sound present PERIPHERAL PULSES: Peripheral pulses 2+ throughout GI: COMMON NORMALS: Normal to inspection, nondistended, normoactive bowel sounds present, Soft to palpation, non-tender, No hepatosplenomegaly present, no masses and no bruits PALPATION: Yes Soft to palpation and Yes No hepatosplenomegaly present Extremity: COMMON NORMALS: normal to inspection, full ROM, capillary refill normal, no calf tenderness and no pedal edema Neuro: COMMON NORMALS: patient oriented x3 SENSORIUM/ORIENTATION: Yes alert MENINGEAL SIGNS: Yes no meningeal signs Course ED course: 84-year-old custodial resident was brought into the emergency department because of difficulty breathing. On evaluation in the emergency department she was not in respiratory distress, however examination shows diffuse rales baseline troponin level was critically elevated as well as the delta at 2 hours. I had an extensive conversation with her daughter about the patient's care and the doctor does not want any surgical intervention including PCI for the patient. She would however per minutes medical management of a non-STEMI. I also brought up the possibility of hospice or comfort care as the prognosis may not be good for this patient. She however wants us to proceed with maximal medical management but if she does not improve after 1 or 2 days she will consider placing the patient on hospice. The patient is a DNR. Consultations: Consultation #1: Discussed with Dr. Gonzalez, hospitalist. He believes the patient will benefit from inpatient care however he would like to wait for the 2-hour troponin as well a rapid COVID-19 test. Time: 15:23 Vital Signs: Vital signs: Vital Signs Temperature 98 F 04/21/20 20:00 Pulse Rate 91 04/21/20 20:00 Respiratory Rate 24 H 04/21/20 20:00 Blood Pressure 133/60 04/21/20 20:00 Pulse Oximetry 90 04/21/20 20:00 MDM - SOB/Dyspnea MDM Narrative: Medical decision making narrative: 34-year-old female patient who presents to the emergency department with difficulty breathing per custodial. She was evaluated in the emergency department and her evaluation is consistent with a non-STEMI. Her family does not want any intervention other than medical management she will be managed with that. She was started on a heparin drip and was given a loading dose of Plavix.. She is already on a beta-garland. she has a sensitivity to aspirin and statin and she is admitted for medical management of the non-STEMI. Medical Records: Attestation: I reviewed the patient's medical records. Lab Data: Attestation: I reviewed the patient's lab results. Labs: Lab Results 04/21/20 04/21/20 04/21/20 Range/Units 14:01 14:01 14:01 WBC 11.9 H (4.0-10.0) 10^3/ uL RBC 3.38 L (4.1-5.3) 10^6/u L Hgb 10.2 L (11.5-15.3) g/dL Hct 31.7 L (37.0-47.0) % MCV 93.8 (81-99) fL MCH 30.2 (28.0-34.0) pg MCHC 32.2 (30.0-36.0) g/dL RDW 13.1 (12.1-15.1) % Plt Count 262 (130-400) 10^3/c mm MPV 9.2 (7.4-10.4) fL Neut % (Auto) 77.4 % Lymph % (Auto) 12.5 % [place] % (Auto) 8.1 % Eos % (Auto) 1.2 % Baso % (Auto) 0.3 % Neut # (Auto) 9.21 H (1.8-7.7) 10^3/u L Lymph # (Auto) 1.5 (0.8-4.8) 10^3/u L [place] # (Auto) 1.0 H (0.2-0.9) 10^3/u L Eos # (Auto) 0.1 (0.0-0.8) 10^3/u L Baso # (Auto) 0.0 (0.0-0.1) 10^3/u L Nucleated RBC % (a uto) 0 % Nucleated RBCs # 0.0 /100WBC Sodium 135 L (136-145) mmol/L Potassium 3.7 (3.5-5.1) mmol/L Chloride 100 (98-107) mmol/L Carbon Dioxide 23 (22-29) mmol/L Anion Gap 15.7 (5-19) BUN 32 H (8-23) mg/dL Creatinine 1.2 H (0.5-0.9) mg/dL GFR Calculation Not Reportable Glucose 124 H (65-115) mg/dL Calculated Osmolal ity 279 L (285-295) mOsm/k g Lactic Acid 0.8 (0.5-2.2) mmol/L Calcium 8.8 (8.5-10.5) mg/dL Total Bilirubin 0.2 (0.15-1.2) mg/dL AST 28 (0-32) U/L ALT 27 (0-33) U/L Alkaline Phosphata se 68 (35-105) IU/L Troponin T Baselin e (0-10) ng/L Troponin T 120 Min [place] (0-10) ng/L Delta Troponin T (0-10) ABS# C-Reactive Protein 169.6 H (0.0-4.9) mg/L NT-Pro-B Natriuret Pep 2374 H (0-450) pg/mL Total Protein 7.4 (6.6-8.7) g/dL Albumin 3.3 L (3.5-5.2) g/dL Globulin 4.1 (1.3-4.6) g/dL Procalcitonin 0.24 (0-0.5) ng/mL SARS-CoV-2 Ag (Rap id) (Negative) 04/21/20 04/21/20 04/21/20 Range/Units 14:01 16:04 16:50 WBC (4.0-10.0) 10^3/ uL RBC (4.1-5.3) 10^6/u L Hgb (11.5-15.3) g/dL Hct (37.0-47.0) % MCV (81-99) fL MCH (28.0-34.0) pg MCHC (30.0-36.0) g/dL RDW (12.1-15.1) % Plt Count (130-400) 10^3/c mm MPV (7.4-10.4) fL Neut % (Auto) % Lymph % (Auto) % [place] % (Auto) % Eos % (Auto) % Baso % (Auto) % Neut # (Auto) (1.8-7.7) 10^3/u L Lymph # (Auto) (0.8-4.8) 10^3/u L [place] # (Auto) (0.2-0.9) 10^3/u L Eos # (Auto) (0.0-0.8) 10^3/u L Baso # (Auto) (0.0-0.1) 10^3/u L Nucleated RBC % (a uto) % Nucleated RBCs # /100WBC Sodium (136-145) mmol/L Potassium (3.5-5.1) mmol/L Chloride (98-107) mmol/L Carbon Dioxide (22-29) mmol/L Anion Gap (5-19) BUN (8-23) mg/dL Creatinine (0.5-0.9) mg/dL GFR Calculation Glucose (65-115) mg/dL Calculated Osmolal ity (285-295) mOsm/k g Lactic Acid (0.5-2.2) mmol/L Calcium (8.5-10.5) mg/dL Total Bilirubin (0.15-1.2) mg/dL AST (0-32) U/L ALT (0-33) U/L Alkaline Phosphata se (35-105) IU/L Troponin T Baselin e 204 H* (0-10) ng/L Troponin T 120 Min [place] 238.9 H (0-10) ng/L Delta Troponin T 34.9 H* (0-10) ABS# C-Reactive Protein (0.0-4.9) mg/L NT-Pro-B Natriuret Pep (0-450) pg/mL Total Protein (6.6-8.7) g/dL Albumin (3.5-5.2) g/dL Globulin (1.3-4.6) g/dL Procalcitonin (0-0.5) ng/mL SARS-CoV-2 Ag (Rap id) Negative (Negative) Imaging Data^: CT Head: Radiologist's impression: [place] [address] CT Scan Report Signed Patient: Silvia Flower #: [id number] : 1935Acct#:[id number] Age/Sex: 84 / FADM Date: 04/21/20 Loc: CSURoom/Bed: [facility] Attending Dr: Johnathan Gonzalez MD Ordering Provider/Ordering MD: Johnathan Gonzalez MD Date of Service: 04/21/20 Procedure(s): CT head wo con* [id number] Accession Number(s): [id number] Report Number: [id number] PROCEDURE INFORMATION: Exam: CT Head Without Contrast Exam date and time: 04/21/2020 5:42 PM Age: 84 years old Clinical indication: Weakness, extremity; Additional info: Frequent falls TECHNIQUE: Imaging protocol: Computed tomography of the head without contrast. Radiation optimization: All CT scans at this facility use at least one of these dose optimization techniques: automated exposure control; mA and/or kV adjustment per patient size (includes targeted exams where dose is matched to clinical indication); or iterative reconstruction. COMPARISON: CT head wo con* [id number] 03/09/2020 12:44 PM RADIATION DOSE METRICS: Total DLP (mGy-cm): 633.52 FINDINGS: Brain: Moderate white matter disease and volume loss are identified. There is no acute infarct or edema. No hemorrhage. Ventricles: Normal. No ventriculomegaly. Bones/joints: Unremarkable. No acute fracture. Sinuses: Visualized sinuses are unremarkable. No fluid levels. Mastoid air cells: Visualized mastoid air cells are well aerated. Soft tissues: Unremarkable. CT/CT head wo con* [id number] IMPRESSION: There are no acute concerning abnormalities. Radiation Dose CTDIVOL = (mGy): DLP = 633.52 (mGy-cm) Dictated By:Courtney Miller MD Signed By:Courtney Miller MDSigned Date/Time:04/21/201845 DD/ 43 CXR: Radiologist's impression: [facility] [address] [place] [address] XRay Report Signed Patient: Silvia Flower #: [id number] : 1935cct#:[id number] Age/Sex: 84 / FADM Date: 04/21/20 Loc: ERRoom/Bed: Attending Dr: Ordering Provider/Ordering MD: Vale Ribera MD, [facility] Date of Service: 04/21/20 Procedure(s): XR chest 1V portable [id number] Accession Number(s): [id number] Report Number: [id number] PROCEDURE INFORMATION: Exam: XR Chest, 1 View Exam date and time: 04/21/2020 2:08 PM Age: 84 years old Clinical indication: Shortness of breath; Prior surgery; Surgery date: 6+ months; Surgery type: Quad bypass 15 years ago; Additional info: SOB, low o2 weakness TECHNIQUE: Imaging protocol: XR of the chest Views: 1 view. COMPARISON: CR (CHEST, ) 04/16/2020 8:40 AM FINDINGS: Lungs: There is worsening bilateral interstitial lung disease. Pleural space: Unremarkable. No pleural effusion. No pneumothorax. Heart/Mediastinum: Cardiomegaly is identified. Diaphragm: There is elevation of the right hemidiaphragm. Bones/joints: There has been a sternotomy. XR/XR chest 1V portable [id number] IMPRESSION: There is worsening bilateral interstitial lung disease suggestive of worsening pulmonary edema.Clinical correlation is advised. Dictated By:Courtney Miller MD Signed By:Courtney Miller MDSigned Date/Time:04/21/201447 DD/ 46 EKG Data^: EKG 1: Attestation: I personally reviewed and interpreted this EKG as follows: EKG Interpretation Date: 04/21/20 EKG interpretation time: 14:11 Prior EKG tracings: not available for review Interpretation: Normal sinus rhythm. Heart rate 95 bpm. Left atrial enlargement. No ST changes. EKG 2: Attestation: I personally reviewed and interpreted this EKG as follows: EKG Interpretation Date: 04/21/20 EKG interpretation time: 16:24 Prior EKG tracings: available for review Interpretation: Normal sinus rhythm. Heart rate 94 bpm. Left atrial enlarge ment. No ST changes. Unchanged from earlier today. Critical Care Time Critical Care Time: Critical Care Time: Yes Total Critical Care Time: 30 Attestation: This case had a high probability of a clinically significant, sudden, or life threatening deterioration of this patient's condition which required my full and direct attention, intervention and personal management. Discharge Plan Discharge Patient Disposition: Admitted As Inpatient Admit Provider: Johnathan Gonzalez Clinical Impression: Non-ST elevated myocardial infarction (non-STEMI) Acute exacerbation of CHF (congestive heart failure) Qualifiers: Heart failure type: unspecified Qualified Code(s): I50.9 - Heart failure, unspecified Condition: Stable Interventions: ED Discharge Assessment Last Done: 04/21/20 18:16 ED Charges Last Done: 04/21/20 18:16 Discharge Date/Time: 04/21/20 18:20 Coding Level of Care Code ED Retail Reset Merchandiser for Chg Fwd Exam Detailed
[2020-04-21 14:09] LABS: Basophils % 0.3 %; Eosinophils # 0.1 10^3/uL (0.0-0.8); Eosinophils % 1.2 %; Hematocrit 31.7 % (37.0-47.0); Hemoglobin 10.2 g/dL (11.5-15.3); Lymphocytes # 1.5 10^3/uL (0.8-4.8); Lymphocytes % 12.5 %; Mean Corpuscular HGB Conc 32.2 g/dL (30.0-36.0); Mean Corpuscular Hemoglobin 30.2 pg (28.0-34.0); Mean Corpuscular Volume 93.8 fL (81-99); Mean Platelet Volume 9.2 fL (7.4-10.4); Monocytes % 8.1 %; Neutrophils # 9.21 10^3/uL (1.8-7.7); Neutrophils % 77.4 %; Nucleated Red Blood Cells % 0 %; Platelet Count 262 10^3/cmm (130-400); Red Blood Count 3.38 10^6/uL (4.1-5.3); Red Cell Distribution Width 13.1 % (12.1-15.1); White Blood Count 11.9 10^3/uL (4.0-10.0)
[2020-04-21 14:27] LABS: Lactic Sepsis W/Reflex 0.8 mmol/L (0.5-2.2)
[2020-04-21 14:37] LABS: NT Pro B Type Natriuretic Pept 2374 pg/mL (0-450); Procalcitonin 0.24 ng/mL (0-0.5)
[2020-04-21 14:48] LABS: Alanine Aminotransferase 27 U/L (0-33); Albumin Level 3.3 g/dL (3.5-5.2); Alkaline Phosphatase 68 IU/L (35-105); Anion Gap 15.7 (5-19); Aspartate Amino Transferase 28 U/L (0-32); Blood Urea Nitrogen 32 mg/dL (8-23); C Reactive Protein 169.6 mg/L (0.0-4.9); Calcium 8.8 mg/dL (8.5-10.5); Carbon Dioxide 23 mmol/L (22-29); Chloride 100 mmol/L (98-107); Globulin 4.1 g/dL (1.3-4.6); Glucose 124 mg/dL (65-115); Osmolality Calculated 279 mOsm/kg (285-295); Potassium 3.7 mmol/L (3.5-5.1); Sodium 135 mmol/L (136-145); Total Bilirubin 0.2 mg/dL (0.15-1.2); Total Protein 7.4 g/dL (6.6-8.7)
[2020-04-21 14:53] LABS: Troponin(5th) Baseline 204 ng/L (0-10)
[2020-04-21] MEDS: FUROsemide 10 mg/mL SDV 4mL 40 MG IVP (15:39)
--- NOTE | 2020-04-21 15:53 | ECG_ITS ---
[facility] Test Date: 2020-04-21 Pat Name: Bhargavi Flower Department: Room: Gender: Female Director [employer]: : 1935 Requested By: Vale Ribera I Order Number: [id number] Alyssia MD: Kathia Garcia M.D. Measurements Intervals [place] Rate: 94 P: 39 AK: 147 QRS: 42 QRSD: 86 T: -1 QT: 344 QTc: 432 Interpretive Statements SINUS RHYTHM WITH SINUS ARRHYTHMIA POSSIBLE LEFT ATRIAL ENLARGEMENT [-0.1mV P WAVE IN V1/V2] SEPTAL MYOCARDIAL INFARCTION , PROBABLY OLD [40+ ms Q WAVE IN V1/V2] WARNING: DATA QUALITY MAY AFFECT INTERPRETATION Compared to ECG 04/21/2020 14:11:00 No significant changes Electronically Signed On 04-21-2020 20:31:43 CDT by Kathia Garcia M.D. [email or web address]
[2020-04-21 16:42] LABS: Troponin 5 2HR 238.9 ng/L (0-10); Troponin 5 2HR Delta 34.9 ABS# (0-10)
[2020-04-21 17:13] LABS: SARS Covid-2 Antigen Negative (Negative)
--- NOTE | 2020-04-21 17:29 | PM.HP ---
Providers/Chief Complaint Primary Care Provider: Sanjay Rosenberg MD Chief Complaint: RESPIRATORY DISTRESS History of Present Illness Bhargavi Flower is a 84 year old pleasant lady intermediate resident, with history of dementia, with recently worsening functional decline, frequent falls, with history of carotid artery disease, CVA, CAD, however, with limited goals of care, preference for no aggressive intervention all managed conservatively, with HTN, HLD, however, with intolerance to statins, and also aspirin, with chronic lower extremity swelling was treated for pneumonia at the intermediate since 04/12 with Levaquin until a day ago, today was noted in respiratory distress by [facility] staff and so EMS was called for additional evaluation from where she was brought to the emergency department. When walking to the bathroom O2 sat decreased to 82%. Oxygen was taken off at that time. She was tired last night after going to the doctor's appointment. She got a Xanax. She gets speech therapy due to assessment of silent aspiration per ST. Liquid consistency was changed to nectar thick. Due to elevated blood pressures her hydralazine dose was increased to 50mg TID. Her risperidone dose has recently been weaned down. In ER she is noted saturating in low 90s on baseline oxygen of 2 L by nasal cannula. She is not having any chest pain or pressure. Denies any cough or shortness of breath at rest. Chest x-ray shows interstitial findings with possibility of pulmonary venous congestion. BNP is found elevated at 2374 which appears to be higher than her prior baseline. Troponin at baseline is also found elevated at 204, with positive delta of 34.9 up to 238.9 at 2 hours. Due to non-STEMI with past intolerance to aspirin due to gastritis, as well as her overall poor functional status and limited goals of care, only medical treatments are elected by the family. She is started on Plavix, heparin drip. Continues on metoprolol. She is intolerant to statins. She received a dose of Lasix for acute congestive heart failure. She is noted to have neutrophilic leukocytosis of 11.9, sinus tachycardia in the 90s, although is afebrile. Rapid COVID-19 antigen is negative. She is admitted for additional medical treatment and monitoring. Review of Systems Narrative: Patient herself is unable to provide review of systems. Review of systems obtained from her daughters, as well as on the phone from the intermediate. Const: Reports: other (Per discussion with intermediate her respiratory condition has been declining recently. She also has had decline in functional capacity. Also has been having more frequent falls.); Denies: fever(s), chills, body aches or malaise Eyes: Denies: change in vision or eye redness ENMT: Denies: throat pain, oral sores or ear or mastoid pain Card: Denies: chest pain, edema, pre-syncope or dyspnea on exertion Resp: Denies: dyspnea, productive cough, change in phlegm color or hemoptysis GI: Denies: abdominal pain, nausea, vomiting, diarrhea, constipation, hematochezia or melena : Denies: flank pain, urinary frequency or hematuria Musc: Denies: back pain, joint swelling or joint redness Skin/Breast: Denies: rash, sores or new lesions Neuro: Denies: headache(s), numbness in extremities, weakness in extremities, dizziness or seizure-like activity Endo: Denies: polyuria or polydipsia Kyle/Lymph: Denies: easy bleeding or purpura All/Imm: Denies: urticaria, throat swelling or tongue swelling Medications/Allergies Home Medications Medication Instructions Recorded Confirmed Last Taken Type alprazolam 0.25 mg tablet 0.25 mg PO BID 10/21/19 04/21/20 04/21/20 History amlodipine 10 mg tablet 10 mg PO DAILY 10/21/19 04/21/20 04/21/20 History ascorbic acid (vitamin C) 500 mg 500 mg PO BID cap 10/21/19 04/21/20 04/21/20 History capsule bisacodyl 10 mg rectal suppository 10 mg OR DAILY PRN 10/21/19 04/21/20 Unknown History donepezil 10 mg tablet 10 mg PO BEDTIME 10/21/19 04/21/20 04/20/20 History magnesium hydroxide 400 mg/5 mL 30 ml PO DAILY PRN 10/21/19 04/21/20 Unknown History oral suspension memantine 10 mg tablet 10 mg PO BID tab 10/21/19 04/21/20 04/21/20 History methenamine hippurate 1 gram tablet 1 gm PO BID 10/21/19 04/21/20 04/21/20 History multivitamin 1 tab PO DAILY 10/21/19 04/21/20 04/21/20 History nitroglycerin 0.4 mg sublingual 0.4 mg SUBLINGUAL Q5M PRN 10/21/19 04/21/20 Unknown History tablet Fleet Enema 118 ml OR DAILY PRN 12/15/19 04/21/20 Unknown History acetaminophen [Tylenol] 650 mg PO QID PRN 12/15/19 04/21/20 03/24/20 History cyanocobalamin (vitamin B-12) 1,000 mcg IM Q30D 12/15/19 04/21/20 03/26/20 History metoprolol succinate 12.5 mg PO DAILY #15 tab 12/16/19 04/21/20 04/21/20 Rx albuterol sulfate 2.5 mg INHALATION QID PRN 01/22/20 04/21/20 04/21/20 History budesonide-formoterol [Symbicort] 2 puff INHALATION BID 01/22/20 04/21/20 04/21/20 History Culturelle 1 cap PO DAILY 03/09/20 04/21/20 04/21/20 History isosorbide dinitrate 20 mg PO BID 03/09/20 04/21/20 04/21/20 History omeprazole 40 mg PO DAILY 03/09/20 04/21/20 04/21/20 History hydralazine 50 mg tablet 50 mg PO TID 30 Days #90 tab 04/20/20 04/21/20 04/21/20 Rx sertraline 100 mg tablet 100 mg PO DAILY tab 04/20/20 04/21/20 04/20/20 History nut.tx,spec.frm,l-fr,iron-fos See Rx Instructions .ROUTE .COMPLEX 04/21/20 04/21/20 Unknown History [TwoCal HN] risperidone [Risperdal] 0.25 mg PO BID 04/21/20 04/21/20 04/21/20 History Allergies Allergy/AdvReac Type Severity Reaction Status Date / Time aspirin Allergy Unknown unknown Verified 04/20/20 14:01 codeine Allergy Unknown unknown Verified 04/20/20 14:01 erythromycin base Allergy Unknown unknown Verified 04/20/20 14:01 [From T-Stat] ethyl alcohol [From T-Stat] Allergy Unknown unknown Verified 04/20/20 14:01 meperidine [From Demerol] Allergy Unknown unknown Verified 04/20/20 14:01 Ofodnhc-Udb-Upo Reductase Allergy Unknown unknown Verified 04/20/20 14:01 Inhibitor isosorbide [From Imdur] AdvReac Unknown headache Verified 04/20/20 14:01 PFSH Acute PFSH: Medical History Anxiety Atherosclerotic heart disease of [place] coronary artery without angina pectoris Carotid artery stenosis Carotid artery stenosis with cerebral infarction Chronic cystitis Coronary artery disease DJD (degenerative joint disease) Dyslipidemia (high LDL; low HDL) Hypertension Swelling of left lower extremity Surgical History History of vaginal hysterectomy Hx of CABG Hx of cataract surgery Hx of cholecystectomy Family History Other CAD (coronary artery disease) Cancer Family history of premature coronary artery disease Social History Smoking and tobacco status: never smoked Alcohol intake: never Adopted: No Caregiver/support person: No Lives independently: No Household members: family Marital status: / Current occupational status: retired History of recent travel: No Current gender identity: Female Vitals/I&O/Wt Last Vital Signs Temp 98.7 F 04/21/20 13:59 Pulse 90 04/21/20 16:56 Resp 20 H 04/21/20 16:56 BP 136/59 04/21/20 16:56 Pulse Ox 93 04/21/20 16:56 Weight last 48 hrs Weight 53.524 kg Physical Exam Const: COMMON NORMALS: no acute distress GENERAL APPEARANCE: frail appearing ORIENTATION/CONSCIOUSNESS: Yes oriented to person; not oriented to place (Does not know where she is but knows she is in [place] in [place], although it took her little bit to remember that) and not oriented to time HENMT: COMMON NORMALS: oropharynx normal OTHER: Old bruise on the right forehead Neck/C-Spine: COMMON NORMALS: no JVD Resp: COMMON NORMALS: normal respiratory effort AUSCULTATION: rales (scattered coarse crackles) Cardio: COMMON NORMALS: no JVD, regular rhythm, S1 normal heart sound present, S2 normal heart sound present and No murmurs present (Cardio) RHYTHM: regular rhythm HEART SOUNDS: S1 normal heart sound present and S2 normal heart sound present GI: COMMON NORMALS: Normal to inspection, nondistended, normoactive bowel sounds present, Soft to palpation and non-tender PALPATION: Yes Soft to palpation Extremity: COMMON NORMALS: no joint enlargement and no pedal edema Neuro: COMMON NORMALS: patient oriented x3 and moves all extremities Skin: COMMON NORMALS: no rashes or lesions noted GENERAL SKIN EXAM: no rashes or lesions noted Data : 04/21/20 14:01 04/21/20 14:01 A&P Assessment and plan (1) NSTEMI (non-ST elevated myocardial infarction): Earlier today noted in some respiratory distress, saturation reportedly did come down to 82% with walking at intermediate, although oxygen at that time was off. At baseline on 2 L by nasal cannula. In ER noted to have troponin elevation baseline of 204, which is higher than priors, with creatinine at 1.2, which is baseline, previously troponin was only as high as 25. She denies chest pain. However, with positive delta at 2 hours at 34.9, rise to 238.9, suspicion is high for non-STEMI. She has known CAD, history of CABG. She has intolerance to aspirin, statin. With limited goals of care intervention was not deemed an option to the family, which has been made known previously. They did want medical treatment for non-STEMI. Received Plavix, is started on anticoagulation (although this is held currently until CT head is complete). Will continue beta-garland. Imdur. On discussion with intermediate, is reported to have been having much more frequent falls recently, and so will assess CT of the head. Unfortunately with functional decline may consider that fall risk is going to persist. After acute treatment may need to revisit with family whether decreased dose Plavix long-term is even an option which will elevate her bleeding risk. Her long-term prognosis is definitely not good, as discussed with the family, and they understand. In case of lack of improvement/progression, they would prefer to switch to comfort care entirely. Her daughter who lives in [place] will try to make it down here to see her. Discussed her condition with both daughters, one who lives in [place], and another one in [place]. Daughter who lives here states has paperwork from medical power of corporate associate attorney. The daughters are both in agreement with assessment and plan. All questions were answered to their satisfaction. Status: Acute (2) Pneumonia: Has completed a course of Levaquin which she has been taking since 04/12. Possible sepsis. Has leukocytosis 11.9, sinus tachycardia heart rate in the 90s, although some of this may be stress related. Lactic acid is normal. Will assess a UA as well. She otherwise does not have cough, does have coarse scattered rails. Reviewing prior imaging it does appear that she has some underlying pulmonary fibrosis. Discussing with nursing staff at the intermediate, speech therapy has been suspecting that she has silent aspiration, and so liquid consistency had been kept at nectar thick, which appears to have improved her ability to swallow. They deny recent episodes of obvious aspiration, and denies signs of aspiration with the dysphagia diet. On chest x-ray there are some diffuse interstitial infiltrates. Due to this, with respiratory distress, leukocytosis, tachycardia, possibility of sepsis, she was also assessed by COVID-19 antigen which at about 97% sensitive was negative, and COVID-19 is rather unlikely. She has not been exposed to anybody apart from intermediate staff, and also was previously tested in March and that was negative as well. Progression of her chronic pulmonary fibrosis/ILD may need to be considered as well. This also may be secondary to prolonged/recurrent chronic aspiration. For now due to possibility of sepsis will continue antibiotic treatment. ST eval. For now will provide broader coverage with Zosyn and linezolid given lack of improvement, as well as suspicion of aspiration. Obtain sputum cultures, urine bacterial antigens. MRSA PCR. Status: Acute (3) Acute CHF: Appears to perhaps be in acute CHF, possibly secondary to ischemic cardiomyopathy with noted and STEMI. Received a dose of Lasix. Previously ejection fraction was noted normal, with some noted pulmonary hypertension, likely due to chronic lung disease. Goals of care are limited, and so she is not going to have an intervention for non-STEMI, however, will symptomatically treat CHF, continue Lasix, cardiac diet. Will assess by TTE. Cardiac medications as above. She does not appear to be in severe fluid overload. There is no peripheral edema. JVD is difficult to supreme court judge due to thick neck. Lung exam difficult to supreme court judge due to coarse crackles secondary to ILD. Does appear to have some interstitial prominence and possibly venous congestion on chest x-ray, also with elevated BNP compared to baseline at 2374. Gentle diuresis at this time. Has received a dose of Lasix in ER for now hold additional, will reassess tomorrow and re-dose. Status: Acute Additional A&P Information Other chronic problems include: Dementia Functional decline Carotid artery disease CVA Persistent hypertension: For this yesterday hydralazine dose was increased to 50 mg 3 times daily during visit with her design analyst. Frequent falls Chronic cystitis: On methenamine Chronic swelling of lower extremities HLD CAD, status post CABG Attestations Medical Necessity Statement*: Admission of over 2 midnights is going to needed for assessment of management of an STEMI, pneumonia, acute CHF. Coding Level of Care Code Acute Membership Sales Manager for [facility] Diagnoses NSTEMI (non-ST elevated myocardial infarction) I21.4 Pneumonia J18.9 Acute CHF I50.9
--- NOTE | 2020-04-21 17:40 | CTR_ITS ---
PROCEDURE INFORMATION: Exam: CT Head Without Contrast Exam date and time: 04/21/2020 5:42 PM Age: 84 years old Clinical indication: Weakness, extremity; Additional info: Frequent falls TECHNIQUE: Imaging protocol: Computed tomography of the head without contrast. Radiation optimization: All CT scans at this facility use at least one of these dose optimization techniques: automated exposure control; mA and/or kV adjustment per patient size (includes targeted exams where dose is matched to clinical indication); or iterative reconstruction. COMPARISON: CT head wo con* [id number] 03/09/2020 12:44 PM RADIATION DOSE METRICS: Total DLP (mGy-cm): 633.52 FINDINGS: Brain: Moderate white matter disease and volume loss are identified. There is no acute infarct or edema. No hemorrhage. Ventricles: Normal. No ventriculomegaly. Bones/joints: Unremarkable. No acute fracture. Sinuses: Visualized sinuses are unremarkable. No fluid levels. Mastoid air cells: Visualized mastoid air cells are well aerated. Soft tissues: Unremarkable. CT/CT head wo con* [id number] IMPRESSION: There are no acute concerning abnormalities. Radiation Dose CTDIVOL = (mGy): DLP = 633.52 (mGy-cm)
[2020-04-21] MEDS: heparin drip 25,000 UNIT/500 ML PREMIX 15 UNIT IV (17:41)
[2020-04-21] MEDS: heparin 5,000 unit/mL INJ 1 mL IV (17:42)
[2020-04-21] MEDS: clopidogrel 300 mg Tablet PO (17:43)
--- NOTE | 2020-04-21 17:53 | PC.NURSE ---
per verbal order of dr. mendieta-paused heparin gtt until CT head obtained.
--- NOTE | 2020-04-21 17:55 | PC.NURSE ---
nurse not able to take report from ER at this time
--- NOTE | 2020-04-21 18:13 | PC.NURSE ---
CSU nurse unable to take report from ER nurse
[2020-04-21] MEDS: metoprolol succinate ER (24 HR) 25 mg Tablet 12.5 MG PO (19:18)
[2020-04-21] MEDS: isosorbide dinitrate 20 mg Tablet PO (19:20)
[2020-04-21] MEDS: ALPRAZolam 0.25 mg Tablet PO (19:20)
--- NOTE | 2020-04-21 19:31 | PC.NURSE ---
Patients daughter Nancie called to let nursing staff know, if patient condition was going to cause patient demise with in weeks to 6 months the family wishes for her to go home on hospice care and be allowed to pass at home Nancie states she is the DPOA no patient information requested or given.
--- NOTE | 2020-04-21 19:53 | ECG_ITS ---
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 Measurements Intervals [place] Rate: 87 P: 91 NC: 148 QRS: 126 QRSD: 83 T: -9 QT: 358 QTc: 432 Interpretive Statements SINUS RHYTHM POSSIBLE LEFT ATRIAL ENLARGEMENT [-0.1mV P WAVE IN V1/V2] SEPTAL MYOCARDIAL INFARCTION [40+ ms Q WAVE IN V1/V2], PROBABLY OLD Compared to ECG 04/21/2020 16:23:56 Sinus arrhythmia no longer present Myocardial infarct finding still present Electronically Signed On 04-22-2020 13:57:48 CDT by Hemanth Carranza M.D. [id number]
[2020-04-21] MEDS: vancomycin 750 MG in sodium chloride 0.9% 250 ML 250 MG IV (19:54)
[2020-04-21 20:31] LABS: Troponin 5 6HR 253.2 ng/L (0-10); Troponin 5 6HR Delta 49.2 ng/L (0-12)
[2020-04-21] MEDS: cefepime 1,000 MG in sodium chloride 0.9% (plus) 50 ML 100 MG IV (21:10)
[2020-04-21] MEDS: donepezil 5 MG Tablet 10 MG PO (21:12)
[2020-04-21] MEDS: hyDRALAzine 50 mg Tablet PO (21:12)
[2020-04-22] VITALS: BP 157/60; PULSE 93; RESP 24; TEMP 36.6; O2SAT 90
[2020-04-22 01:09] LABS: Basophils % 0.3 %; Eosinophils # 0.2 10^3/uL (0.0-0.8); Eosinophils % 1.6 %; Hematocrit 28.5 % (37.0-47.0); Hemoglobin 9.2 g/dL (11.5-15.3); Lymphocytes # 1.5 10^3/uL (0.8-4.8); Lymphocytes % 12.6 %; Mean Corpuscular HGB Conc 32.3 g/dL (30.0-36.0); Mean Corpuscular Hemoglobin 30.3 pg (28.0-34.0); Mean Corpuscular Volume 93.8 fL (81-99); Mean Platelet Volume 9.1 fL (7.4-10.4); Monocytes # 0.8 10^3/uL (0.2-0.9); Neutrophils # 8.98 10^3/uL (1.8-7.7); Nucleated Red Blood Cells % 0 %; Platelet Count 251 10^3/cmm (130-400); Red Blood Count 3.04 10^6/uL (4.1-5.3); Red Cell Distribution Width 13.2 % (12.1-15.1); White Blood Count 11.5 10^3/uL (4.0-10.0)
[2020-04-22 01:33] LABS: Partial Thromboplastin Time 71.3 SECONDS (23.9-36.7)
[2020-04-22 01:36] LABS: Alanine Aminotransferase 22 U/L (0-33); Albumin Level 3.1 g/dL (3.5-5.2); Alkaline Phosphatase 62 IU/L (35-105); Anion Gap 12.5 (5-19); Aspartate Amino Transferase 23 U/L (0-32); Blood Urea Nitrogen 29 mg/dL (8-23); Calcium 8.2 mg/dL (8.5-10.5); Carbon Dioxide 26 mmol/L (22-29); Chloride 102 mmol/L (98-107); Globulin 3.7 g/dL (1.3-4.6); Glucose 122 mg/dL (65-115); Osmolality Calculated 282 mOsm/kg (285-295); Potassium 3.5 mmol/L (3.5-5.1); Sodium 137 mmol/L (136-145); Total Bilirubin 0.3 mg/dL (0.15-1.2); Total Protein 6.8 g/dL (6.6-8.7)
[2020-04-22 04:00] VITALS: BP 176/70; PULSE 83; RESP 21; O2SAT 93
--- NOTE | 2020-04-22 06:27 | PC.NURSE ---
PT RESTING IN BED AT THIS TIME. PT WAS UP TO BSC AND PULLED OUT IV. PT DENIES PAIN AT THIS TIME. WILL CONTINUE TO MONITOR.
[2020-04-22 06:29] LABS: Add Urine Microscopic? YES; Bilirubin Urine Neg (NEGATIVE); Blood Urine 2+ (Negative); Glucose Urine UA Norm (Normal); Ketones Urine Negative (Negative); Leukocyte Esterase Urine Negative (Negative); Nitrate Urine Negative (Negative); Protein Urine Neg (Negative); RBC Urine RARE /hpf (0-2); Squamous Epithelial Cell Urine 0-4 (0-5); Urine Appearance Clear (CLEAR); Urine Color Yellow (Yellow); Urobilinogen Urine Norm (Negative); pH Urine 6 (5-7)
[2020-04-22 06:30] LABS: Bacteria Urine 1+
--- NOTE | 2020-04-22 06:39 | PC.NURSE ---
Addendum entered by Dany Flaherty LPN 04/22/20 06:40: PTT CAME BACK AT 71.3. Original Note: PTT CAME BACK AT 70.1 NO CHANGES WERE MADE.
[2020-04-22 07:50] LABS: Partial Thromboplastin Time 65.6 SECONDS (23.9-36.7)
--- NOTE | 2020-04-22 08:23 | ECG_ITS ---
[facility] Test Date: 2020-04-22 Pat Name: Bhargavi Flower Department: Room: 111 Gender: Female Shrimp Header: : 1935 Requested By: Johnathan Gonzalez Order Number: [id number] Alyssia MD: Hemanth Carranza M.D. Measurements Intervals [place] Rate: 64 P: 57 [place]: 224 QRS: 42 QRSD: 90 T: 28 QT: 412 QTc: 428 Interpretive Statements SINUS RHYTHM WITH FIRST DEGREE AV BLOCK LOW QRS VOLTAGE IN PRECORDIAL LEADS [QRS DEFLECTION < 1.0 mV IN CHEST LEADS] Nonspecific ST-T changes compared to ECG 04/21/2020 21:45:47 First degree AV block now present Low QRS voltage now present ST (T wave) deviation now present Myocardial infarct finding no longer present Electronically Signed On 04-22-2020 14:26:44 CDT by Hemanth Carranza M.D. [id number]
[2020-04-22] MEDS: ALPRAZolam 0.25 mg Tablet PO (10:37)
[2020-04-22] MEDS: donepezil 5 MG Tablet 10 MG PO (10:37)
[2020-04-22] MEDS: memantine 5 mg tablet 10 MG PO ×2 (10:37→17:24)
[2020-04-22 10:38] LABS: Hemoglobin 9.6 g/dL (11.5-15.3)
[2020-04-22] MEDS: isosorbide dinitrate 20 mg Tablet PO ×2 (10:38→17:24)
[2020-04-22] MEDS: metoprolol succinate ER (24 HR) 25 mg Tablet 12.5 MG PO (10:38)
[2020-04-22] MEDS: clopidogrel 75 mg Tablet PO (10:38)
[2020-04-22] MEDS: pantoprazole DR 40 mg Tablet PO (10:38)
[2020-04-22] MEDS: sertraline 100 mg Tablet PO (10:39)
[2020-04-22] MEDS: hyDRALAzine 50 mg Tablet PO ×3 (10:39→20:54)
[2020-04-22 10:52] VITALS: PULSE 83; RESP 18; O2SAT 92
--- NOTE | 2020-04-22 10:53 | P.PN_ITS ---
Subjective Subjective: Interval history: She is awake alert. Has to use the restroom. Denies chest pain or pressure. Denies shortness of breath with nasal cannula on. She does not know where she is. She does not remember the year. Is not in distress. Denies any other discomfort or needs. Vitals/I&O/Wt Last Vital Signs Temp 97.9 F 04/22/20 00:00 Pulse 83 04/22/20 10:52 Resp 18 04/22/20 10:52 BP 176/70 04/22/20 04:00 Pulse Ox 92 04/22/20 10:52 04/21/20 04/22/20 04/22/20 22:59 06:59 14:59 Intake Total 423.75 / 423.75 120 / 543.75 240 / 240 Output Total 500 / 500 500 / 1000 200 / 200 Balance -76.25 / -76.25 -380 / -456.25 40 / 40 Weight last 48 hrs Weight 54.794 kg Weight 54.522 kg Weight 53.524 kg Physical Exam Const: COMMON NORMALS: no acute distress and alert GENERAL APPEARANCE: co mfortable and frail appearing ORIENTATION/CONSCIOUSNESS: Yes awake and Yes oriented to person; not oriented to place and not oriented to time HENMT: COMMON NORMALS: oropharynx normal OTHER: Old bruise on the right forehead Neck/C-Spine: COMMON NORMALS: no JVD Resp: COMMON NORMALS: normal respiratory effort AUSCULTATION: rales (scattered coarse crackles) Cardio: COMMON NORMALS: no JVD, regular rhythm, S1 normal heart sound present, S2 normal heart sound present and No murmurs present (Cardio) RHYTHM: regular rhythm HEART SOUNDS: S1 normal heart sound present and S2 normal heart sound present GI: COMMON NORMALS: Normal to inspection, nondistended, normoactive bowel soun ds present, Soft to palpation and non-tender PALPATION: Yes Soft to palpation Extremity: COMMON NORMALS: no joint enlargement and no pedal edema Neuro: COMMON NORMALS: moves all extremities SENSORIUM/ORIENTATION: Yes alert, Yes oriented to person, No oriented to place and No oriented to time Skin: COMMON NORMALS: no rashes or lesions noted GENERAL SKIN EXAM: no rashes or lesions noted Data : 04/22/20 10:30 04/22/20 01:03 Micro: Microbiology 04/22/20 05:45 Legionella Urinary Antigen - Final Urine,Voided Bacterial Antigens - Final A&P Assessment and plan (1) NSTEMI (non-ST elevated myocardial infarction): Continued rise in troponin last night. No bleeding on head CT. Was loaded with Plavix, continuing 75 mg daily for now. Tolerated heparin drip with hemoglobin stabilized around 9.5. Intolerant of statin. Continues on beta- garland. Imdur. Will switch to Lovenox. Per prior patient and family wishes no invasive procedures. TTE pending. Discussed findings so far, as well as her overall condition with her family. They feel that since she has had very significant functional decline recently, worsening dementia, with concern for recurrent microaspiration, as well as limited goals of care, without intervention, with active non-STEMI, as well as lack of opportunity to continue antiplatelet medication after discharge due to extremely frequent falls recently, they are considering hospice care. They feel that she would probably do much better coming back home, spending time with the family with hospice care support and passing away at home when time comes. Discussed with care coordination, will get family in touch with hospice, and try to get things set up for her to be able to return home. We may be potentially looking at discharge tomorrow if everything get set up per discussion with family. They would prefer not to continue Plavix on discharge due to risk of bleeding. Status: Acute (2) Pneumonia: Urine bacterial antigens negative. MRSA PCR pending. Continues on cefepime, vancomycin, with concern for some residual pneumonia and we should not respond to outpatient course of Levaquin. Sputum culture ordered, so far uncollected, although I am not sure whether she will be able to give a sample. COVID-19 rapid antigen was negative. Progression of her chronic pulmonary fibrosis/ILD may need to be considered as well. This also may be secondary to prolonged/recurrent chronic aspiration as per discussion with alf staff where she was followed by speech therapy. Her daughter is aware of this as well. ST [facility]. Status: Acute (3) Acute CHF: Repeat Lasix today, for now we will start on 40 mg IV twice daily. Follow-up TTE. Continue CAD medicines as tolerating. Cardiac diet. Monitor volume status, I&O. Status: Acute Additional A&P Information Dirty UA: Discussed with daughter, 5-10 WBCs. Appears less likely to be UTI, although cannot 100% exclude. For now continues on antibiotics as above. Other chronic problems include: Dementia Functional decline Carotid artery disease CVA Persistent hypertension: For this yesterday hydralazine dose was increased to 50 mg 3 times daily during visit with her environmental research scientist. Frequent falls Chronic cystitis: On methenamine Chronic swelling of lower extremities HLD CAD, status post CABG Attestations Medical Necessity Statement*: Continue admission for assessment of management of non-STEMI, pneumonia which did not respond to outpatient treatment, congestive heart failure, and a lady with chronic aspiration, advancing dementia, limited goals of care. Continue goals of care discussions and disposition arrangements. 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
[2020-04-22 12:00] VITALS: BP 149/64; PULSE 89; RESP 24; TEMP 36.9; O2SAT 92
[2020-04-22] MEDS: enoxaparin 60 mg/0.6 mL Syringe 55 MG SUBCUT (12:21)
[2020-04-22] MEDS: cefepime 1,000 MG in sodium chloride 0.9% (plus) 50 ML 100 MG IV (12:21)
[2020-04-22] MEDS: FUROsemide 10 mg/mL SDV 4mL 40 MG IVP ×2 (12:22→22:32)
[2020-04-22 17:00] VITALS: BP 150/71; PULSE 93; RESP 19; TEMP 36.4; O2SAT 91
--- NOTE | 2020-04-22 18:55 | USCV_ITS ---
Bhargavi Flower Age: 84 Gender: F : 1935 Exam Date: 04/22/2020 06:09 Ordering Phys: Johnathan Gonzalez MD Technologist: Lise Hickey Exam Location: [facility] Indication: CHF AND NSTEMI BP: 176 / 70 HR: 88 Rhythm: Sinus Technical Quality: Adequate MEASUREMENTS (Male / Female) Normal Values 2D ECHO LV Diastolic Diameter PLAX 3.7 cm 4.2 - 5.9 / 3.9 - 5.3 cm LV Systolic Diameter PLAX 2.9 cm LV Chamber Size 3.5 cm IVS Diastolic Thickness 0.9 cm 0.6 - 1.0 / 0.6 - 0.9 cm IVS Systolic Thickness 1.3 cm LVPW Diastolic Thickness 1.3 cm 0.6 - 1.0 / 0.6 - 0.9 cm LVPW Systolic Thickness 1.6 cm RV Chamber Size 3.6 cm LVOT Diameter 2.0 cm LV Ejection Fraction 2D Teich 46.0 % LV Ejection Fraction MOD 2C 61.2 % LV Ejection Fraction 2C AL 61.1 % LA Diameter 4.4 cm LA Width 3.5 cm LA Height 4.7 cm RA Width 4.3 cm RA Height 3.0 cm Aorta at Sinotubular Diameter 2.7 cm M-MODE LV Diastolic Diameter MM 3.7 cm 4.2 - 5.9 / 3.9 - 5.3 cm LV Systolic Diameter MM 1.9 cm LV Ejection Fraction MM Teich 81.5 % IVS Diastolic Thickness MM 1.1 cm 0.6 - 1.0 / 0.6 - 0.9 cm IVS Systolic Thickness MM 1.4 cm LVPW Diastolic Thickness MM 1.1 cm 0.6 - 1.0 / 0.6 - 0.9 cm LVPW Systolic Thickness MM 1.6 cm RV Diastolic Diameter MM 1.2 cm Aortic Annulus Diameter 3.5 cm LA Ao Ratio MM 1.3 MV E Point Septal Separation 0.4 cm DOPPLER AV Peak Velocity 235.0 cm/s LVOT Peak Velocity 146.0 cm/s AV Area Cont Eq vti 2.1 cm squared AV Area Cont Eq pk 2.0 cm squared MV Area PHT 5.0 cm squared Mitral E to A Ratio 1.0 MV E' Velocity 10.0 cm/s Mitral E to MV E' Ratio 16.3 Mitral E to LV E' Lateral Ratio 14.4 Mitral E to LV E' Septal Ratio 18.9 TR Peak Velocity 317.0 cm/s TR Peak Gradient 40.2 mmHg TR Mean Velocity 220.5 cm/s TR Mean Gradient 22.2 mmHg TR Velocity Time Integral 92.8 cm TV Peak E Velocity 86.0 cm/s Right Atrial Pressure 3.0 mmHg Pulmonary Artery Systolic Pressu 43.2 mmHg PV Peak Velocity 78.0 cm/s RV Acceleration Time 0.1 s RV Ejection Time 0.3 s RV AcT/ET 0.3 FINDINGS Left Ventricle Normal left ventricular size, systolic function and wall thickness, with no regional wall motion abnormalities. Left ventricular ejection fraction is estimated at 65%. Normal diastolic function. Right Ventricle Normal right ventricular size and systolic function. Right ventricular systolic pressure 43.2 mmHg. Right Atrium Normal right atrial size. Right atrial pressure estimated at 3 mm Hg. Left Atrium Mildly increased left atrial size. Mitral Valve Moderate mitral annular calcification. No mitral valve stenosis. Trace mitral valve regurgitation. Aortic Valve Mildly thickened trileaft aortic valve. Aortic valve sclerosis without stenosis. Trace aortic regurgitation. Tricuspid Valve Structurally normal tricuspid valve. No tricuspid valve stenosis. Mild tricuspid valve regurgitation. Pulmonic Valve Structurally normal pulmonic valve. No pulmonary valve stenosis. Mild pulmonary valve regurgitation. Pericardium No pericardial effusion. Normal sized inferior vena cava. Aorta Normal sized aortic root. CONCLUSIONS 1. Normal left ventricular size, systolic function and wall thickness, with no regional wall motion abnormalities. Left ventricular ejection fraction is estimated at 65%. Normal diastolic function. 2. Normal right ventricular size and systolic function. 3. Mild pulmonary hypertension with pulmonary artery pressure estimated at 43 mm Hg. 4. Mild tricupid valve regurgitation. 5. No prior similar studies to compare. Kathia Garcia MD (Electronically Signed) Final Date: 22 April 2020 17:05 S
[2020-04-22 20:00] VITALS: BP 148/74; PULSE 92; RESP 20; TEMP 36.8; O2SAT 91
[2020-04-23] VITALS (10 sets, daily range): BP systolic 133–150; BP diastolic 54–79; PULSE 79–107; RESP 16–22; TEMP 36.7–36.9; O2SAT 82–97; BMI 22.0
[2020-04-23] MEDS: cefepime 1,000 MG in sodium chloride 0.9% (plus) 50 ML 100 MG IV (00:34)
[2020-04-23] MEDS: ALPRAZolam 0.25 mg Tablet PO (02:53)
[2020-04-23] MEDS: vancomycin 750 MG in sodium chloride 0.9% 250 ML 250 MG IV (04:24)
--- NOTE | 2020-04-23 04:40 | PC.NURSE ---
Patient laying in bed with eyes closed. Patient has been very restless tonight at first of night it was confusion and lots of reality orientation as patient kept asking where she was and why she was here later in the shift patinet up to the bathroom several times due to late dose of IV lasix. Patient had good volume of output after lasix but maybe should consider change in times to make dosage not in middle of sleep. Patient asked for xanax at 0300 and after that calmed down and finally layed with eyes closed and was responsive to touch with drifting back with eyes closed after only a few moments of non stimulated period of time. Will continue to monitor and assist as needed patient weight this am is 118.3 lbs for daily weight. nectar thickened liquids tolerated well by patient medications taken with no concerns.
[2020-04-23 06:01] LABS: Basophils # 0.1 10^3/uL (0.0-0.1); Basophils % 0.4 %; Eosinophils # 0.3 10^3/uL (0.0-0.8); Eosinophils % 2.4 %; Hematocrit 30.2 % (37.0-47.0); Hemoglobin 9.7 g/dL (11.5-15.3); Lymphocytes # 1.3 10^3/uL (0.8-4.8); Lymphocytes % 11.8 %; Mean Corpuscular HGB Conc 32.1 g/dL (30.0-36.0); Mean Corpuscular Hemoglobin 30.5 pg (28.0-34.0); Mean Platelet Volume 9.5 fL (7.4-10.4); Monocytes # 1.1 10^3/uL (0.2-0.9); Monocytes % 9.3 %; Neutrophils # 8.56 10^3/uL (1.8-7.7); Neutrophils % 75.5 %; Nucleated Red Blood Cells % 0 %; Platelet Count 295 10^3/cmm (130-400); Red Blood Count 3.18 10^6/uL (4.1-5.3); Red Cell Distribution Width 13.1 % (12.1-15.1); White Blood Count 11.4 10^3/uL (4.0-10.0)
[2020-04-23 06:22] LABS: Alanine Aminotransferase 18 U/L (0-33); Albumin Level 2.9 g/dL (3.5-5.2); Alkaline Phosphatase 62 IU/L (35-105); Blood Urea Nitrogen 23 mg/dL (8-23); Carbon Dioxide 29 mmol/L (22-29); Chloride 97 mmol/L (98-107); Globulin 3.7 g/dL (1.3-4.6); Glucose 106 mg/dL (65-115); Osmolality Calculated 281 mOsm/kg (285-295); Sodium 137 mmol/L (136-145); Total Bilirubin 0.3 mg/dL (0.15-1.2); Total Protein 6.6 g/dL (6.6-8.7)
[2020-04-23 06:27] LABS: Anion Gap 14.4 (5-19); Aspartate Amino Transferase 27 U/L (0-32); Potassium 3.4 mmol/L (3.5-5.1)
[2020-04-23] MEDS: pantoprazole DR 40 mg Tablet PO (09:36)
[2020-04-23] MEDS: hyDRALAzine 50 mg Tablet PO (09:36)
[2020-04-23] MEDS: metoprolol succinate ER (24 HR) 25 mg Tablet 12.5 MG PO (09:36)
[2020-04-23] MEDS: clopidogrel 75 mg Tablet PO (09:36)
[2020-04-23] MEDS: isosorbide dinitrate 20 mg Tablet PO (09:37)
[2020-04-23] MEDS: memantine 5 mg tablet 10 MG PO (09:37)
[2020-04-23] MEDS: sertraline 100 mg Tablet PO (09:37)
--- NOTE | 2020-04-23 12:24 | PC.NURSE ---
medications received from [facility].discharged by [facility] ambulance ,to home, at this time.
--- NOTE | 2020-04-23 13:35 | P.DS_ITS ---
Discharge Providers Date of Admission: 04/21/20 18:26 Date of Discharge: April 23, 2020 Attending Provider at Admission: Johnathan Gonzalez Attending Provider at Discharge: Johnathan Gonzalez Primary Care Provider: Sanjay Rosenberg MD Diagnoses at Discharge Discharge Diagnosis (1) NSTEMI (non-ST elevated myocardial infarction): Status: Acute (2) Pneumonia: Status: Acute (3) Acute CHF: Status: Acute (4) Dementia: Status: Acute (5) Frequent falls: Status: Acute (6) Declining functional status: Status: Acute (7) Recurrent aspiration events: Status: Acute (8) Dysphagia: Status: Acute (9) Carotid artery stenosis with cerebral infarction: Status: Acute (10) Interstitial lung disease: Status: Acute (11) Hypertension: Status: Acute Qualifiers: Hypertension type: essential hypertension Qualified Code(s): I10 - Essential (primary) hypertension Reason for Visit Reason for Visit: RESPIRATORY DISTRESS Hospital Course Hospital Course: Very pleasant 84-year-old lady was admitted from dementia unit at senior care due to noted decrease in oxygen saturation down to 82% with exertion, as well as some symptoms of raspy distress, with findings of non-STEMI on presentation, with worsening bilateral interstitial lung disease, with suspicion for pneumonia for which she had recently underwent 7-day treatment with Levaquin, but still with leukocytosis, sinus tachycardia on presentation, concerning for possible ongoing infectious process, however, per discussion with senior care staff, also with known recurrent microaspiration, has been followed by speech therapy, requiring dysphagia diet, with nectar thick liquids. Recently she has had quite significant functional decline, has had numerous fall s, with noted progressing dementia, requiring 1 person assist at all times. She has history of coronary artery disease, as well as carotid artery stenosis, however, has intolerance to aspirin, and has not been on statins due to intolerance, not on other antiplatelet agents prior to admission. 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 Due to limited goals of care, with her and family not wanting invasive interventions, her carotid artery disease has not been followed. With regards to non-STEMI on presentation, with troponin initially at 204, rising as high as 253 at 6 hours, family did not want any procedures as part of treatment, but were agreeable to initiate treatment with Plavix, anticoagulation while admitted. She was continued on beta-garland. Due to concern for persistent pneumonia and recurrent aspiration she was treated with Zosyn. In the ER COVID-19 rapid antigen test was negative. Urine bacterial antigens and MRSA PCR both negative. Due to overall recent functional decline, poor long-term prognosis, limited goals of care, family after extensive consideration discussion decided she would be better at home with hospice care, spent time with family, including daughter who will come from [place] to stay with her here for now. Their goal is very much so to keep her comfortable, and allow her to pass away at home when the time comes. She will complete the course of antibiotic with Augmentin due to concern for aspiration pneumonitis/pneumonia. Given recurrent falls on discharge Plavix is continued only at half dose, however, discussed with daughter in case she is impulsively climbing out of bed, or having further risks of falling, would not continue Plavix either. Hospice care will provide additional care and supplies. Daughters will continue pleasure feeds, although we will try to still maintain thickened liquids with nectar thick consistency. Oxygen is continued for comfort as needed. Meds to beds is utilized for her regular standing medications so they may be taken at home for her. Physical Exam 2 Const: COMMON NORMALS: no acute distress and alert GENERAL APPEARANCE: comfortable and frail appearing ORIENTATION/CONSCIOUSNESS: Yes awake and Yes oriented to person; not oriented to place and not oriented to time HENMT: COMMON NORMALS: oropharynx normal OTHER: She is awake, appears comfortable, but frail. Generally weak. Old bruise on the right forehead Neck/C-Spine: COMMON NORMALS: no JVD Resp: COMMON NORMALS: normal respiratory effort AUSCULTATION: rhonchi (More on the right.) Cardio: COMMON NORMALS: no JVD, regular rhythm, S1 normal heart sound present, S2 normal heart sound present and No murmurs present (Cardio) RHYTHM: regular rhythm HEART SOUNDS: S1 normal heart sound present and S2 normal heart sound present GI: COMMON NORMALS: Normal to inspection, nondistended, normoactive bowel sounds present, Soft to palpation and non-tender PALPATION: Yes Soft to palpation Extremity: COMMON NORMALS: no joint enlargement and no pedal edema Neuro: COMMON NORMALS: moves all extremities SENSORIUM/ORIENTATION: Yes alert, Yes oriented to person, No oriented to place and No oriented to time Skin: COMMON NORMALS: no rashes or lesions noted GENERAL SKIN EXAM: no rashes or lesions noted Discharge Data Data Completed and Pending: Completed Studies During Hospitalization Category Date Time Status CT head wo con* [id number] Urgent Cat Scan 04/21/20 17:40 Completed XR chest 1V mansoor ble [id number] Urgent Exams 04/21/20 13:52 Completed CV echo complete* [id number] Urgent Ultrasound 04/22/20 18:55 Completed Pending at discharge Category Date Time Status Complete Blood Co unt w/Auto AM LABS Lab 04/24/20 04:00 Ordered Comprehensive Met abolic Panel AM LA BS Lab 04/24/20 04:00 Ordered Sputum Culture an d Gram Stain Routi ne Lab 04/21/20 18:55 Uncollected Labs from last 24 hours 04/23/20 04/23/20 05:22 05:22 WBC 11.4 H RBC 3.18 L Hgb 9.7 L Hct 30.2 L MCV 95.0 MCH 30.5 MCHC 32.1 RDW 13.1 Plt Count 295 MPV 9.5 Neut % (Auto) 75.5 Lymph % (Auto) 11.8 Vermilion % (Auto) 9.3 Eos % (Auto) 2.4 Baso % (Auto) 0.4 Neut # (Auto) 8.56 H Lymph # (Auto) 1.3 Vermilion # (Auto) 1.1 H Eos # (Auto) 0.3 Baso # (Auto) 0.1 Nucleated RBC % (a uto) 0 Nucleated RBCs # 0.0 Sodium 137 Potassium 3.4 L Chloride 97 L Carbon Dioxide 29 Anion Gap 14.4 BUN 23 Creatinine 1.1 H GFR Calculation Not Reportable Glucose 106 Calculated Osmolal ity 281 L Calcium 9.0 Total Bilirubin 0.3 AST 27 ALT 18 Alkaline Phosphata se 62 Total Protein 6.6 Albumin 2.9 L Globulin 3.7 Vitals: Last Vital Signs Temp 98.1 F 04/23/20 07:15 Pulse 94 04/23/20 12:57 Resp 16 04/23/20 12:57 BP 138/79 04/23/20 07:15 Pulse Ox 97 04/23/20 12:57 Discharge Plan Discharge Patient Disposition: Hospice - Home Condition: Stable Prescriptions: New albuterol sulfate 90 mcg/actuation aerosol powdr breath activated 2 inh INHALATION Q6H PRN (Reason: shortness of breath or wheezing) Qty: 1 RF: 0 Augmentin 875-125 mg tablet 1 tab PO BID Qty: 14 RF: 0 clopidogrel 75 mg Tablet 37.5 mg PO DAILY Qty: 15 RF: 0 Lasix 20 mg tablet 20 mg PO DAILY PRN (Reason: edema) Qty: 30 RF: 0 morphine 10 mg/5 mL solution 5 mg PO Q4H PRN (Reason: pain) Qty: 100 RF: 0 Continued multivitamin Tablet 1 tab PO DAILY RF: 0 cyanocobalamin (vitamin B-12) 1,000 mcg/mL Solution 1,000 mcg IM Q30D RF: 0 Tylenol 325 mg Tablet 650 mg PO QID PRN (Reason: Pain) Qty: 30 RF: 0 Aricept 10 mg tablet 10 mg PO BEDTIME Qty: 30 RF: 0 Zoloft 100 mg tablet 100 mg PO DAILY Qty: 30 RF: 0 omeprazole 40 mg Capsule,Delayed Release(Dr/Ec) 40 mg PO DAILY Qty: 30 RF: 0 methenamine hippurate 1 gram tablet 1 gm PO BID Qty: 30 RF: 0 Milk of Magnesia 400 mg/5 mL suspension 30 ml PO DAILY PRN (Reason: Constipation) Qty: 355 RF: 0 amlodipine 10 mg tablet 10 mg PO DAILY Qty: 30 RF: 0 bisacodyl 10 mg suppository 10 mg IN DAILY PRN (Reason: Constipation) Qty: 30 RF: 0 isosorbide dinitrate 20 mg Tablet 20 mg PO BID Qty: 30 RF: 0 Fleet Enema 19-7 gram/118 mL Enema 118 ml IN DAILY PRN (Reason: CONSTIPATED) Qty: 1197 RF: 0 Nitrostat 0.4 mg tablet, sublingual 0.4 mg SUBLINGUAL Q5M PRN (Reason: CHEST PAINS) Qty: 14 RF: 0 hydralazine 50 mg tablet 50 mg PO TID 30 Days Qty: 90 RF: 5 metoprolol succinate 25 mg tablet extended release 24 hr 12.5 mg PO DAILY Qty: 15 RF: 0 Culturelle 10 billion cell Capsule 1 cap PO DAILY Qty: 30 RF: 0 Namenda 10 mg tablet 10 mg PO BID Qty: 30 RF: 0 Symbicort 160-4.5 mcg/actuation Hfa Aerosol Inhaler 2 puff INHALATION BID Qty: 10.2 RF: 0 TwoCal HN 0.08-2 gram-kcal/mL Liquid See Rx Instructions .ROUTE .COMPLEX Qty: 1000 RF: 0 Changed Xanax 0.25 mg tablet 0.25 mg PO BID PRN (Reason: Anxiety) Qty: 14 RF: 0 Risperdal 0.5 mg Tablet 0.25 mg PO DAILY PRN (Reason: Agitation) Qty: 0 RF: 0 Discontinued ascorbic acid (vitamin C) 500 mg capsule 500 mg PO BID RF: 0 albuterol sulfate 2.5 mg /3 mL (0.083 %) Solution For Nebulization 2.5 mg INHALATION QID PRN (Reason: Shortness Of Breath) RF: 0 Discharge Orders: Discharge Order (Routine); Ordered 04/23/20 Ordered By: Johnathan Gonzalez Referrals: [facility] [Outside] Sanjay Rosenberg MD [Primary Care Provider] - 4-7 days (Jose A Simmons will be calling to set a followup with Dr. Rosenberg. If you don't hear from them on Saturday, please give them a call) Discharge Diet: As Directed Discharge Activity: Increase activity as tolerated Patient Instructions: Furosemide (By mouth), Albuterol (By mouth), Amoxicillin/Clavulanate Potassium (By mouth), Morphine, Rapid Release (By mouth), Clopidogrel (By mouth), Myocardial Infarction (DC), Heart Failure (DC), CHF Stoplight, Post Heart Attack Stoplight Activity Restrictions/Additional Instructions: Continue soft diet with nectar thick liquids. Maintain aspiration and fall precautions. Up only with assistance. Turn/reposition frequently to prevent pressure sores (every 30 min to 1 hr if po ssible). Continue oxygen for comfort 2LPM. Target saturation 92%. Lasix as needed for edema and if worsened shortness of breath especially with lying down flat. Plavix are at half dose with heart attack, risk of stroke, however, as discussed if getting out of bed or falling frequently, would not continue as it elevated risk of bleeding. 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
== END 2020-04-23 13:49 | disposition hospice, home (50) | DRG 177 ==
LOC: ER 13:40 → CSU 18:26
PROVIDERS: Family Medicine; Admitting Provider Internal Medicine; PCP Family Medicine; Visit Provider Internal Medicine
DX: J69.0 Pneumonitis due to inhalation of food and vomit (principal); I21.4 Non-ST elevation (NSTEMI) myocardial infarction; I50.9 Heart failure, unspecified; I11.0 Hypertensive heart disease with heart failure; F03.90 Unspecified dementia, unspecified severity, without behavioral disturbance, psychotic disturbance, mood disturbance, and anxiety; R29.6 Repeated falls; I25.10 Atherosclerotic heart disease of native coronary artery without angina pectoris; I69.991 Dysphagia following unspecified cerebrovascular disease; R13.10 Dysphagia, unspecified; E78.5 Hyperlipidemia, unspecified; F41.9 Anxiety disorder, unspecified; N30.20 Other chronic cystitis without hematuria; M19.90 Unspecified osteoarthritis, unspecified site; Z95.1 Presence of aortocoronary bypass graft; J84.10 Pulmonary fibrosis, unspecified; I25.5 Ischemic cardiomyopathy; I27.20 Pulmonary hypertension, unspecified; Z79.899 Other long term (current) drug therapy; I65.29 Occlusion and stenosis of unspecified carotid artery
CPT/HCPCS: 12345; 36415; 70450; 71045; 80053; 81001; 83605; 83880; 84145; 84484; 85018; 85025; 85730; 86140; 86403; 87426; 87449; 87641; 92610; 93005; 93010; 93306; 94640; 94664; 96372; 96375; 99283; J0692; J1644; J1650; J1940; J3370; J7050; J7611